=== PATIENT | male | born 1970 | race Caucasian/White ===

== ENCOUNTER 2020-10-07 10:43 | Inpatient (IN) | payer OTHER ==
[2020-10-07] VITALS (7 sets, daily range): BP systolic 113–136; BP diastolic 81–88
[~2020-10-07] VITALS: Ht 188 cm; Wt 92.3 kg
--- NOTE | 2020-10-07 11:09 | ED.ADGEN ---
General Adult EDM: Chief Complaint: ABDOMINAL PAIN HPI: HPI: Patient is a 50 year old male coming in for right-sided abdominal pain. Said the pain was initially in the right upper quadrant and moved down to the suprapubic area. Patient states he has had chronic abdominal pain in the past that is not nearly as severe. Patient states his abdominal pain before was every now and then he would have a cramp to go away. Patient states he was walking around the store when this pain started, has also had a couple episodes of nonbloody nonbilious emesis. Denies any diarrhea. Patient does state that he had an episode of black stools a few days ago. Patient admits to NSAID use and daily alcohol use but denies any history of GI bleeding. Review of Systems: Review of Systems: Constitutional: Denies fever or chills. [] Eyes: Denies change in visual acuity. [] HENT: Denies nasal congestion or sore throat. [] Respiratory: Denies cough or shortness of breath. [] Cardiovascular: Denies chest pain or edema. [] GI: Right side abdominal pain, vomiting : Denies dysuria and hematuria. [] Musculoskeletal: Denies back pain or joint pain. [] Integument: Denies rash. [] Neurologic: Denies headache, focal weakness or sensory changes. [] Endocrine: Denies polyuria or polydipsia. [] Lymphatic: Denies swollen glands. [] Psychiatric: Denies depression or anxiety. [] Current Medications: Current Medications Medications (Trade) Dose Ordered Sig/Natalee Start Time Stop Time Status Last Admin Dose Admin Fentanyl Citrate (Fentanyl 2ml Vial) 75 mcg 1X ONCE 10/07/20 11:15 10/07/20 11:16 DC 10/07/20 11:26 75 MCG Info (CONTRAST GIVEN -- Rx MONITORING) 1 each PRN DAILY PRN 10/07/20 11:30 10/09/20 11:29 Iohexol (Omnipaque 300 Mg/ml) 75 ml 1X ONCE 10/07/20 12:15 10/07/20 12:16 DC Morphine Sulfate (Morphine Sulfate) 4 mg PRN Q2HR PRN 10/07/20 12:45 10/08/20 12:44 Ondansetron HCl (Zofran) 4 mg PRN Q8HRS PRN 10/07/20 12:45 10/08/20 12:44 Pantoprazole Sodium (PROTONIX VIAL for IV PUSH) 40 mg 1X ONCE 10/07/20 12:45 10/07/20 12:46 DC 10/07/20 12:48 40 MG Piperacillin Sod/ Tazobactam Sod 3.375 gm/Sodium Chloride 50 ml @ 100 mls/hr 1X ONCE 10/07/20 12:45 10/07/20 13:14 DC 10/07/20 13:10 100 MLS/HR Sodium Chloride 1,000 ml @ 100 mls/hr Q10H 10/07/20 12:45 10/08/20 12:44 10/07/20 13:10 100 MLS/HR Allergies: Allergies: Allergies Coded Allergies Type Severity Reaction Last Updated Verified No Known Drug Allergies 10/07/20 No Physical Exam: PE: Constitutional: Well developed, well nourished, moderate acute distress, non- toxic appearance. [] HENT: Normocephalic, atraumatic, bilateral external ears normal, oropharynx moist, no oral exudates, nose normal. [] Eyes: PERRLA, EOMI, conjunctiva normal, no discharge. [] Neck: Normal range of motion, no tenderness, supple, no stridor. [] Cardiovascular:Heart rate regular rhythm, no murmur [] Lungs & Thorax: Bilateral breath sounds clear to auscultation [] Abdomen: Right upper quadrant tenderness with positive Rizo sign, guarding and right upper quadrant, right lower and left lower quadrants. No hernias or palpable masses Skin: Warm, dry, no erythema, no rash. [] Back: No tenderness, no CVA tenderness. [] Extremities: No tenderness, no cyanosis, no clubbing, ROM intact, no edema. [] Neurologic: Alert and oriented X 3, normal motor function, normal sensory function, no focal deficits noted. [] Psychologic: Affect normal, judgement normal, mood normal. [] Current Patient Data: Labs: Laboratory Tests Test 10/07/20 11:20 White Blood Count 11.7 x10^3/uL (4.0-11.0) H Red Blood Count 4.17 x10^6/uL (4.30-5.70) L Hemoglobin 13.5 g/dL (13.0-17.5) Hematocrit 39.8 % (39.0-53.0) Mean Corpuscular Volume 96 fL (79-100) Mean Corpuscular Hemoglobin 32 pg (25-35) Mean Corpuscular Hemoglobin Concent 34 g/dL (31-37) Red Cell Distribution Width 13.7 % (11.5-14.5) Platelet Count 456 x10^3/uL (140-400) H Neutrophils (%) (Auto) 77 % (31-73) H Lymphocytes (%) (Auto) 15 % (24-48) L Monocytes (%) (Auto) 6 % (0-9) Eosinophils (%) (Auto) 2 % (0-3) Basophils (%) (Auto) 0 % (0-3) Neutrophils # (Auto) 9.0 x10^3/uL (1.8-7.7) H Lymphocytes # (Auto) 1.7 x10^3/uL (1.0-4.8) Monocytes # (Auto) 0.7 x10^3/uL (0.0-1.1) Eosinophils # (Auto) 0.2 x10^3/uL (0.0-0.7) Basophils # (Auto) 0.0 x10^3/uL (0.0-0.2) Prothrombin Time 12.9 SEC (11.7-14.0) Prothrombin Time INR 1.0 (0.8-1.1) Urine Collection Type Unknown Urine Color Caroline Urine Clarity Clear Urine pH 6.5 (<5.0-8.0) Urine Specific [place] 1.025 (1.000-1.030) Urine Protein Negative mg/dL (NEG-TRACE) Urine Glucose (UA) Negative mg/dL (NEG) Urine Ketones (Stick) Negative mg/dL (NEG) Urine Blood Negative (NEG) Urine Nitrite Negative (NEG) Urine Bilirubin Negative (NEG) Urine Urobilinogen Dipstick 1.0 mg/dL (0.2 mg/dL) Urine Leukocyte Esterase Negative (NEG) Urine RBC Occ /HPF (0-2) Urine WBC 1-4 /HPF (0-4) Urine Squamous Epithelial Cells Mod /LPF Urine Bacteria Few /HPF (0-FEW) Urine Mucus Mod /LPF Sodium Level 138 mmol/L (136-145) Potassium Level 3.9 mmol/L (3.5-5.1) Chloride Level 100 mmol/L (98-107) Carbon Dioxide Level 28 mmol/L (21-32) Anion Gap 10 (6-14) Blood Urea Nitrogen 15 mg/dL (8-26) Creatinine 1.1 mg/dL (0.7-1.3) Estimated GFR (Cockcroft-Gault) 70.9 BUN/Creatinine Ratio 14 (6-20) Glucose Level 150 mg/dL (70-99) H Calcium Level 9.4 mg/dL (8.5-10.1) Total Bilirubin 0.5 mg/dL (0.2-1.0) Aspartate Amino Transferase (AST) 18 U/L (15-37) Alanine Aminotransferase (ALT) 21 U/L (16-63) Alkaline Phosphatase 66 U/L (46-116) Troponin I Quantitative < 0.017 ng/mL (0.000-0.055) Total Protein 6.9 g/dL (6.4-8.2) Albumin 3.8 g/dL (3.4-5.0) Albumin/Globulin Ratio 1.2 (1.0-1.7) Lipase 108 U/L (73-393) Laboratory Tests 10/07/20 11:20 Laboratory Tests 10/07/20 11:20 Vital Signs: Vital Signs Date Time Temp Pulse Resp B/P (MAP) Pulse Ox O2 Delivery O2 Flow Rate FiO2 10/07/20 12:49 22 98 Room Air 10/07/20 11:07 98.6 81 118/77 (91) 98.6 EKG: EKG: [] Heart Score: Risk Factors: Risk Factors: DM, Current or recent (<one month) smoker, HTN, HLP, family history of CAD, obesity. Risk Scores: Score 0 - 3: 2.5% MACE over next 6 weeks - Discharge Home Score 4 - 6: 20.3% MACE over next 6 weeks - Admit for Clinical Observation Score 7 - 10: 72.7% MACE over next 6 weeks - Early Invasive Strategies Radiology/Procedures: Radiology/Procedures: CT scan of the abdomen and pelvis with contrast 10/07/2020 CLINICAL HISTORY: Right-sided abdominal pain. TECHNIQUE: After the intravenous administration of 75 cc of Omnipaque 300, contiguous, 5 mm axial sections were obtained through the abdomen and pelvis. One or more of the following individualized dose reduction techniques were utilized for this study: 1. Automated exposure control. 2. Adjustment of the mA and/or kV according to patient size. 3. Use of iterative reconstruction technique. FINDINGS: No previous imaging studies are available for comparison. Images through the lung bases demonstrate minimal dependent subsegmental atelectasis bilaterally. A 8mm calcified granuloma is seen involving the right middle lobe. The liver, spleen, pancreas, adrenal glands and kidneys are within normal limits. The abdominal aorta is mildly ectatic but appears to taper normally. The gallbladder is well-distended. The cecum extends into the pelvis. The appendix is within normal limits. There is no evidence of bowel obstruction. A small amount of free fluid is seen within the right abdomen. Small collections of free air are seen in the region of scot hepatis and anterior to the liver. Fluid and small extraluminal collections of air are seen adjacent to the lateral superior aspect of the first portion of the duodenum. These findings are concerning for a perforated duodenal ulcer. Images through the pelvis demonstrate the urinary bladder to be contracted. A moderate amount of free fluid is seen within the pelvis. Very mild S-shaped curvature of the thoracolumbar spine is seen. Degenerative changes are seen involving lower thoracic and mid and lower lumbar spine along with both hips. IMPRESSION: Findings are seen concerning for a perforated duodenal ulcer as outlined above. [] Course & Med Decision Making: Course & Med Decision Making Pertinent Labs and Imaging studies reviewed. (See chart for details) Protonix and Zosyn ordered, discussed with surgery and hospitalist. [] Dragon Disclaimer: Dragon Disclaimer: This electronic medical record was generated, in whole or in part, using a voice recognition dictation system. Departure Departure Impression: Primary Impression: Perforated ulcer of intestine Disposition: ADMITTED INPT THIS HOSP Admitting Physician: [facility] Referrals: MONO LYN MD (PCP) MELA CORTES MD Oct 07, 2020 11:09
[2020-10-07] MEDS ORDERED: ONDANSETRON PF 4 MG/2 ML VIAL. IVP ONE (11:15)
[2020-10-07] MEDS ORDERED: fentaNYL PF VIAL 100 MCG/2 ML VIAL IVP ONE ×2 (11:15→14:30)
[2020-10-07] MEDS ORDERED: CONTRAST GIVEN. MC PRN (11:30)
[2020-10-07] MEDS ORDERED: IOHEXOL 300 MG/ML 100ML VIAL. IV ONE ×2 (11:30→12:15)
[2020-10-07 11:45] LABS: BASO % 0 % (0-3); EOS # 0.2 x10^3/uL (0.0-0.7); EOS % 2 % (0-3); HEMATOCRIT 39.8 % (39.0-53.0); HEMOGLOBIN 13.5 g/dL (13.0-17.5); LYMPH # 1.7 x10^3/uL (1.0-4.8); LYMPH % 15 % (24-48); MEAN CORPUSCULAR HEMOGLOBIN 32 pg (25-35); MEAN CORPUSCULAR HGB CONC 34 g/dL (31-37); MEAN CORPUSCULAR VOLUME 96 fL (79-100); MONO # 0.7 x10^3/uL (0.0-1.1); MONO % 6 % (0-9); NEUT % 77 % (31-73); PLATELET COUNT 456 x10^3/uL (140-400); RED BLOOD COUNT 4.17 x10^6/uL (4.30-5.70); RED CELL DISTRIBUTION WIDTH 13.7 % (11.5-14.5); WHITE BLOOD COUNT 11.7 x10^3/uL (4.0-11.0)
[2020-10-07 11:52] LABS: BILIRUBIN,URINE NEGATIVE (NEG); CLARITY,URINE CLEAR; COLOR,URINE AMBER; NITRITE,URINE NEGATIVE (NEG); PH,URINE 6.5 (<5.0-8.0); PROTEIN,URINE NEGATIVE (NEG-TRACE)
[2020-10-07 11:56] LABS: CALCIUM 9.4 mg/dL (8.5-10.1); CREATININE 1.1 mg/dL (0.7-1.3); GFR 70.9; POTASSIUM 3.9 mmol/L (3.5-5.1)
[2020-10-07 12:03] LABS: ALBUMIN 3.8 g/dL (3.4-5.0); ALBUMIN/GLOBULIN RATIO 1.2 (1.0-1.7); TOTAL BILIRUBIN 0.5 mg/dL (0.2-1.0); TOTAL PROTEIN 6.9 g/dL (6.4-8.2)
[2020-10-07 12:05] LABS: BACTERIA,URINE FEW /HPF (0-FEW); RBC,URINE OCC /HPF (0-2)
--- NOTE | 2020-10-07 12:38 | RAD ---
CT scan of the abdomen and pelvis with contrast 10/07/2020 CLINICAL HISTORY: Right-sided abdominal pain. TECHNIQUE: After the intravenous administration of 75 cc of Omnipaque 300, contiguous, 5 mm axial sec tions were obtained through the abdomen and pelvis. One or more of the following individualized dose reduction techniques were utilized for this study: 1. Automated exposure control. 2. Adjustment of the mA and/or kV according to patient size. 3. Use of iterative reconstruction technique. FINDINGS: No previous imaging studies are available for comparison. Images through the lung bases demonstrate minimal dependent subsegmental atelectasis bilaterally. A 8 mm calcified granuloma is seen involving the right middle lobe. The liver, spleen, pancreas, adrenal glands and kidneys are within normal limits. The abdominal aorta is mildly ectatic but appears to taper normally. The gallbladder is well-distende d. The cecum extends into the pelvis. The appendix is within normal limits. There is no evidence of b owel obstruction. A small amount of free fluid is seen within the right abdomen. Small collections of free air are seen in the region of scot hepatis and anterior to the liver. Fluid and small extraluminal collections o f air are seen adjacent to the lateral superior aspect of the first portion of the duodenum. These fi ndings are concerning for a perforated duodenal ulcer. Images through the pelvis demonstrate the urinary bladder to be contracted. A moderate amount of free fluid is seen within the pelvis. Very mild S-shaped curvature of the thoracolumbar spine is seen. De generative changes are seen involving lower thoracic and mid and lower lumbar spine along with both h ips. IMPRESSION: Findings are seen concerning for a perforated duodenal ulcer as outlined above. This findings were discussed with Dr. Rivera. Electronically signed by: Watson Hansen MD (10/07/2020 12:36 PM) [id number]
[2020-10-07] MEDS ORDERED: MORPHINE SULFATE 10 MG/ML VIAL. IV ONE (12:45)
[2020-10-07] MEDS ORDERED: PANTOPRAZOLE IV PUSH 40 MG VIAL. IVP ONE (12:45)
[2020-10-07] MEDS ORDERED: PIPERACILLIN/TAZOBACTAM 3.375 GM in IV NORMAL SALINE 50ML 50 ML IV ONE (12:45)
[2020-10-07] MEDS ORDERED: MORPHINE SULFATE 4 MG/ML VIAL. IV PRN (12:45)
[2020-10-07] MEDS ORDERED: ONDANSETRON PF 4 MG/2 ML VIAL. IV PRN (12:45)
[2020-10-07] MEDS: IV NORMAL SALINE 1000ML BAG 1,000 ML IV SCH ×3 (13:10→19:50)
[2020-10-07] MEDS ORDERED: IV RINGERS,LACTATED 1000ML 1,000 ML IV SCH (13:15)
[2020-10-07] MEDS ORDERED: LIDOCAINE 1% PF 2 ML VIAL. ID PRN (13:15)
[2020-10-07] MEDS ORDERED: ONDANSETRON PF 4 MG/2 ML VIAL. IVP PRN (13:15)
[2020-10-07] MEDS ORDERED: PROCHLORPERAZINE 10 MG/2 ML VIAL. IVP PRN (13:15)
[2020-10-07] MEDS: BUPIVACAINE-EPI 0.5%-1:200000 MPF 30 ML VIAL. INJ ONE ×2 (13:15→16:14)
[2020-10-07] MEDS ORDERED: HYDROmorphone 2 MG/ML VIAL IVP PRN (13:15)
[2020-10-07] MEDS ORDERED: fentaNYL PF VIAL 100 MCG/2 ML VIAL IVP PRN ×2 (13:15)
[2020-10-07 13:39] LABS: PROTHROMBIN TIME PATIENT 12.9 SEC (11.7-14.0)
[2020-10-07] MEDS ORDERED: MORPHINE SULFATE 2 MG/ML VIAL. ONE (14:05)
[2020-10-07] MEDS: MORPHINE SULFATE 2 MG/ML VIAL. IVP PRN ×4 (14:08→18:05)
[2020-10-07] MEDS ORDERED: fentaNYL PF VIAL 100 MCG/2 ML VIAL ONE ×2 (14:14→14:24)
[2020-10-07] MEDS ORDERED: LIDOCAINE 2% PF 5 ML VIAL. ONE (14:24)
[2020-10-07] MEDS ORDERED: PROPOFOL 10 MG/ML (20ML) VIAL. IV ONE (14:24)
[2020-10-07] MEDS ORDERED: SUCCINYLCHOLINE 200 MG/10 ML VIAL. ONE (14:25)
[2020-10-07] MEDS ORDERED: ROCURONIUM 50 MG/5 ML VIAL. ONE (14:25)
--- NOTE | 2020-10-07 14:59 | PDOC2 ---
CONSULT Date of Consult Date of Consult DATE: 10/07/20 TIME: 14:56 History of Present Illness Reason for Visit: The patient is a 50-year-old male who reported to the emergency department with abdominal pain. He states that he has had pain for a long time but that it worsened significantly today. The pain is located in the upper mid abdomen and radiates throughout. He does state he has had issues with ulcers in the past. Past Surgical History Past Surgical History laminectomy Social History 1 pack per day ALCOHOL: heavy Current Medications Current Medications Current Medications Ondansetron HCl (Zofran) 4 mg 1X ONCE IVP Last administered on 10/07/20at 11:25; Start 10/07/20 at 11:15; Stop 10/07/20 at 11:16; Status DC Fentanyl Citrate (Fentanyl 2ml Vial) 75 mcg 1X ONCE IVP Last administered on 10/07/20at 11:26; Start 10/07/20 at 11:15; Stop 10/07/20 at 11:16; Status DC Iohexol (Omnipaque 300 Mg/ml) 75 ml 1X ONCE IV Last administered on 10/07/20at 11:30; Start 10/07/20 at 11:30; Stop 10/07/20 at 11:31; Status DC Info (CONTRAST GIVEN -- Rx MONITORING) 1 each PRN DAILY PRN MC SEE COMMENTS; Start 10/07/20 at 11:30; Stop 10/09/20 at 11:29 Iohexol (Omnipaque 300 Mg/ml) 75 ml 1X ONCE IV ; Start 10/07/20 at 12:15; Stop 10/07/20 at 12:16; Status DC Morphine Sulfate (Morphine Sulfate) 5 mg 1X ONCE IV Last administered on 10/07/20at 12:49; Start 10/07/20 at 12:45; Stop 10/07/20 at 12:46; Status DC Pantoprazole Sodium (PROTONIX VIAL for IV PUSH) 40 mg 1X ONCE IVP Last administered on 10/07/20at 12:48; Start 10/07/20 at 12:45; Stop 10/07/20 at 12:46; Status DC Piperacillin Sod/ Tazobactam Sod 3.375 gm/Sodium Chloride 50 ml @ 100 mls/hr 1X ONCE IV Last administered on 10/07/20at 13:10; Start 10/07/20 at 12:45; Stop 10/07/20 at 13:14; Status DC Ondansetron HCl (Zofran) 4 mg PRN Q8HRS PRN IV NAUSEA/VOMITING; Start 10/07/20 at 12:45; Stop 10/08/20 at 12:44 Morphine Sulfate (Morphine Sulfate) 4 mg PRN Q2HR PRN IV PAIN; Start 10/07/20 at 12:45; Stop 10/08/20 at 12:44 Sodium Chloride 1,000 ml @ 100 mls/hr Q10H IV Last administered on 10/07/20at 13:10; Start 10/07/20 at 12:45; Stop 10/08/20 at 12:44 Bupivacaine HCl/ Epinephrine Bitart (Sensorcain-Epi 0.5%-1:633779 Mpf) 30 ml 1X ONCE INJ ; Start 10/07/20 at 13:15; Stop 10/07/20 at 13:16; Status DC Ondansetron HCl (Zofran) 4 mg PRN Q6HRS PRN IVP NAUSEA/VOMITING; Start 10/07/20 at 13:15; Stop 10/08/20 at 13:14 Fentanyl Citrate (Fentanyl 2ml Vial) 25 mcg PRN Q5MIN PRN IVP MILD PAIN 1-3; Start 10/07/20 at 13:15; Stop 10/08/20 at 13:14 Fentanyl Citrate (Fentanyl 2ml Vial) 50 mcg PRN Q5MIN PRN IVP MODERATE TO SEVERE PAIN; Start 10/07/20 at 13:15; Stop 10/08/20 at 13:14 Morphine Sulfate (Morphine Sulfate) 1 mg PRN Q10MIN PRN IVP SEVERE PAIN 7-10 Last administered on 10/07/20at 14:22; Start 10/07/20 at 13:15; Stop 10/08/20 at 13:14 Ringer's Solution 1,000 ml @ 30 mls/hr Q24H IV ; Start 10/07/20 at 13:15; Stop 10/08/20 at 01:14 Lidocaine HCl (Xylocaine-Mpf 1% 2ml Vial) 2 ml 1X PRN PRN ID IV START; Start 10/07/20 at 13:15; Stop 10/08/20 at 13:14 Hydromorphone HCl (Dilaudid) 0.5 mg PRN Q10MIN PRN IVP SEV PAIN, Second choice; Start 10/07/20 at 13:15; Stop 10/08/20 at 13:14 Prochlorperazine Edisylate (Compazine) 5 mg PACU PRN PRN IVP NAUSEA, MRX1; Start 10/07/20 at 13:15; Stop 10/08/20 at 13:14 Morphine Sulfate (Morphine Sulfate) 2 mg STK-MED ONCE .ROUTE ; Start 10/07/20 at 14:05; Stop 10/07/20 at 14:05; Status DC Fentanyl Citrate (Fentanyl 2ml Vial) 100 mcg STK-MED ONCE .ROUTE ; Start 10/07/20 at 14:14; Stop 10/07/20 at 14:15; Status DC Fentanyl Citrate (Fentanyl 2ml Vial) 100 mcg 1X ONCE IVP Last administered on 10/07/20at 14:21; Start 10/07/20 at 14:30; Stop 10/07/20 at 14:31; Status DC Propofol (Diprivan) 200 mg STK-MED ONCE IV ; Start 10/07/20 at 14:24; Stop 10/07/20 at 14:24; Status DC Lidocaine HCl (Lidocaine Pf 2% Vial) 5 ml STK-MED ONCE .ROUTE ; Start 10/07/20 at 14:24; Stop 10/07/20 at 14:24; Status DC Fentanyl Citrate (Fentanyl 2ml Vial) 100 mcg STK-MED ONCE .ROUTE ; Start 10/07/20 at 14:24; Stop 10/07/20 at 14:24; Status DC Succinylcholine Chloride (Anectine) 200 mg STK-MED ONCE .ROUTE ; Start 10/07/20 at 14:25; Stop 10/07/20 at 14:25; Status DC Rocuronium [place] (Zemuron) 50 mg STK-MED ONCE .ROUTE ; Start 10/07/20 at 14:25; Stop 10/07/20 at 14:25; Status DC Allergies Allergies: Coded Allergies: No Known Drug Allergies (Unverified , 10/07/20) ROS General: No: Chills, Night Sweats, Fatigue, Malaise, Appetite, Other PSYCHOLOGICAL ROS: No: Anxiety, Behavioral Disorder, Concentration difficultie, Decreased libido, Depression, Disorientation, Hallucinations, Hostility, Ir ritablity, Memory difficulties, Mood Swings, Obsessive thoughts, Physical abuse, Sexual abuse, Sleep disturbances, Suicidal ideation, Other Eyes: No Blurry vision, No Decreased vision, No Double vision, No Dry eyes, No Excessive tearing, No Eye Pain, No Itchy Eyes, No Loss of vision, No Photophobia, No Scotomata, No Uses contacts, No Uses glasses, No Other ALLERGY AND IMMUNOLOGY: No: Hives, Insect Bite Sensitivity, Itchy/Watery Eyes, Nasal Congestion, Post Nasal Drip, Seasonal Allergies, Other ENDOCRINE: No: Breast Changes, Galactorrhea, Hair Pattern Changes, Hot Flashes, Malaise/lethargy, Mood Swings, Palpitations, Polydipsia/polyuria, Skin Changes, Temperature Intolerance, Unexpected Weight Changes, Other Breast: No New/Changing Breast Lumps, No Nipple changes, No Nipple discharge, No Other Respiratory: No: Cough, Hemoptysis, Orthopnea, Pleuritic Pain, Shortness of breath, SOB with excertion, Sputum Changes, Stridor, Tachypnea, Wheezing, Other Cardiovascular: No Chest Pain, No Palpitations, No Orthopnea, No Paroxysmal Noc. Dyspnea, No Edema, No Lt Headedness, No Other Gastrointestinal: Yes Abdominal Pain Musculoskeletal: Yes Other (chronic back pain) Skin: No Dry Skin, No Eczema, No Hair Changes, No Lumps, No Mole Changes, No Mottling, No Nail Changes, No Pruritus, No Rash, No Skin Lesion Changes, No Other, No Acne Physical Exam General: Alert, Oriented X3 HEENT: Atraumatic Lungs: Clear to auscultation Abdomen: Soft (tender diffusely, peritoneal signs) Extremities: No clubbing, No cyanosis Skin: No rashes Neuro: Normal speech Psych/Mental Status: Mental status NL Vitals VITALS Vital Signs Date Time Temp Pulse Resp B/P (MAP) Pulse Ox O2 Delivery O2 Flow Rate FiO2 10/07/20 14:28 98.6 81 15 122/77 99 98.6 10/07/20 14:22 Room Air Labs Labs Laboratory Tests Test 10/07/20 11:20 10/07/20 13:15 White Blood Count 11.7 x10^3/uL (4.0-11.0) Red Blood Count 4.17 x10^6/uL (4.30-5.70) Hemoglobin 13.5 g/dL (13.0-17.5) Hematocrit 39.8 % (39.0-53.0) Mean Corpuscular Volume 96 fL (79-100) Mean Corpuscular Hemoglobin 32 pg (25-35) Mean Corpuscular Hemoglobin Concent 34 g/dL (31-37) Red Cell Distribution Width 13.7 % (11.5-14.5) Platelet Count 456 x10^3/uL (140-400) Neutrophils (%) (Auto) 77 % (31-73) Lymphocytes (%) (Auto) 15 % (24-48) Monocytes (%) (Auto) 6 % (0-9) Eosinophils (%) (Auto) 2 % (0-3) Basophils (%) (Auto) 0 % (0-3) Neutrophils # (Auto) 9.0 x10^3/uL (1.8-7.7) Lymphocytes # (Auto) 1.7 x10^3/uL (1.0-4.8) Monocytes # (Auto) 0.7 x10^3/uL (0.0-1.1) Eosinophils # (Auto) 0.2 x10^3/uL (0.0-0.7) Basophils # (Auto) 0.0 x10^3/uL (0.0-0.2) Prothrombin Time 12.9 SEC (11.7-14.0) Prothromb Time International Ratio 1.0 (0.8-1.1) Urine Collection Type Unknown Urine Color [place] Urine Clarity Clear Urine pH 6.5 (<5.0-8.0) Urine Specific [place] 1.025 (1.000-1.030) Urine Protein Negative mg/dL (NEG-TRACE) Urine Glucose (UA) Negative mg/dL (NEG) Urine Ketones (Stick) Negative mg/dL (NEG) Urine Blood Negative (NEG) Urine Nitrite Negative (NEG) Urine Bilirubin Negative (NEG) Urine Urobilinogen Dipstick 1.0 mg/dL (0.2 mg/dL) Urine Leukocyte Esterase Negative (NEG) Urine RBC Occ /HPF (0-2) Urine WBC 1-4 /HPF (0-4) Urine Squamous Epithelial Cells Mod /LPF Urine Bacteria Few /HPF (0-FEW) Urine Mucus Mod /LPF Sodium Level 138 mmol/L (136-145) Potassium Level 3.9 mmol/L (3.5-5.1) Chloride Level 100 mmol/L (98-107) Carbon Dioxide Level 28 mmol/L (21-32) Anion Gap 10 (6-14) Blood Urea Nitrogen 15 mg/dL (8-26) Creatinine 1.1 mg/dL (0.7-1.3) Estimated GFR (Cockcroft-Gault) 70.9 BUN/Creatinine Ratio 14 (6-20) Glucose Level 150 mg/dL (70-99) Calcium Level 9.4 mg/dL (8.5-10.1) Total Bilirubin 0.5 mg/dL (0.2-1.0) Aspartate Amino Transf (AST/SGOT) 18 U/L (15-37) Alanine Aminotransferase (ALT/SGPT) 21 U/L (16-63) Alkaline Phosphatase 66 U/L (46-116) Troponin I Quantitative < 0.017 ng/mL (0.000-0.055) Total Protein 6.9 g/dL (6.4-8.2) Albumin 3.8 g/dL (3.4-5.0) Albumin/Globulin Ratio 1.2 (1.0-1.7) Lipase 108 U/L (73-393) SARS-CoV-2 Antigen (Rapid) Negative (NEGATIVE) Laboratory Tests Test 10/07/20 11:20 10/07/20 13:15 White Blood Count 11.7 x10^3/uL (4.0-11.0) Red Blood Count 4.17 x10^6/uL (4.30-5.70) Hemoglobin 13.5 g/dL (13.0-17.5) Hematocrit 39.8 % (39.0-53.0) Mean Corpuscular Volume 96 fL (79-100) Mean Corpuscular Hemoglobin 32 pg (25-35) Mean Corpuscular Hemoglobin Concent 34 g/dL (31-37) Red Cell Distribution Width 13.7 % (11.5-14.5) Platelet Count 456 x10^3/uL (140-400) Neutrophils (%) (Auto) 77 % (31-73) Lymphocytes (%) (Auto) 15 % (24-48) Monocytes (%) (Auto) 6 % (0-9) Eosinophils (%) (Auto) 2 % (0-3) Basophils (%) (Auto) 0 % (0-3) Neutrophils # (Auto) 9.0 x10^3/uL (1.8-7.7) Lymphocytes # (Auto) 1.7 x10^3/uL (1.0-4.8) Monocytes # (Auto) 0.7 x10^3/uL (0.0-1.1) Eosinophils # (Auto) 0.2 x10^3/uL (0.0-0.7) Basophils # (Auto) 0.0 x10^3/uL (0.0-0.2) Prothrombin Time 12.9 SEC (11.7-14.0) Prothromb Time International Ratio 1.0 (0.8-1.1) Urine Collection Type Unknown Urine Color [place] Urine Clarity Clear Urine pH 6.5 (<5.0-8.0) Urine Specific [place] 1.025 (1.000-1.030) Urine Protein Negative mg/dL (NEG-TRACE) Urine Glucose (UA) Negative mg/dL (NEG) Urine Ketones (Stick) Negative mg/dL (NEG) Urine Blood Negative (NEG) Urine Nitrite Negative (NEG) Urine Bilirubin Negative (NEG) Urine Urobilinogen Dipstick 1.0 mg/dL (0.2 mg/dL) Urine Leukocyte Esterase Negative (NEG) Urine RBC Occ /HPF (0-2) Urine WBC 1-4 /HPF (0-4) Urine Squamous Epithelial Cells Mod /LPF Urine Bacteria Few /HPF (0-FEW) Urine Mucus Mod /LPF Sodium Level 138 mmol/L (136-145) Potassium Level 3.9 mmol/L (3.5-5.1) Chloride Level 100 mmol/L (98-107) Carbon Dioxide Level 28 mmol/L (21-32) Anion Gap 10 (6-14) Blood Urea Nitrogen 15 mg/dL (8-26) Creatinine 1.1 mg/dL (0.7-1.3) Estimated GFR (Cockcroft-Gault) 70.9 BUN/Creatinine Ratio 14 (6-20) Glucose Level 150 mg/dL (70-99) Calcium Level 9.4 mg/dL (8.5-10.1) Total Bilirubin 0.5 mg/dL (0.2-1.0) Aspartate Amino Transf (AST/SGOT) 18 U/L (15-37) Alanine Aminotransferase (ALT/SGPT) 21 U/L (16-63) Alkaline Phosphatase 66 U/L (46-116) Troponin I Quantitative < 0.017 ng/mL (0.000-0.055) Total Protein 6.9 g/dL (6.4-8.2) Albumin 3.8 g/dL (3.4-5.0) Albumin/Globulin Ratio 1.2 (1.0-1.7) Lipase 108 U/L (73-393) SARS-CoV-2 Antigen (Rapid) Negative (NEGATIVE) Images Images CT abdomen/pelvis IMPRESSION: Findings are seen concerning for a perforated duodenal ulcer as outlined above. Assessment/Plan Assessment/Plan 50 year old male with abdominal pain, CT suggestive of perforated duodenal ulcer; plan to OR for laparoscopy, possible laparotomy. The risks of surgery were discussed with the patient. He understands and would like to proceed. KHOA HAMPTON MD Oct 07, 2020 14:59
[2020-10-07] MEDS ORDERED: DESFLURANE 31 TO 60 MINUTES IH ONE (15:36)
[2020-10-07] MEDS ORDERED: ONDANSETRON PF 4 MG/2 ML VIAL. ONE ×2 (15:36→15:57)
[2020-10-07] MEDS ORDERED: DEXAMETHASONE SOD PHOS 4 MG/ML VIAL ONE (15:36)
[2020-10-07] MEDS ORDERED: NEOSTIGMINE METHYLSULFATE 5 MG/5 ML SYRINGE. ONE (15:58)
[2020-10-07] MEDS ORDERED: GLYCOPYRROLATE 1 MG/5 ML VIAL. ONE (15:58)
[2020-10-07] MEDS ORDERED: PHENYLEPHRINE in 0.9% NACL PF 1 MG/10 ML SYRINGE. IV ONE (16:00)
--- NOTE | 2020-10-07 17:29 | PDOC4 ---
Operative Note Operative Note Operative Note: Preoperative Diagnosis: Perforated viscus Postoperative Diagnosis: Perforated duodenal ulcer Procedure: Exploratory laparoscopy, open repair of perforated duodenal ulcer, omental patch Surgeon: Josh Tester Equipment: Juan Carlos GUTHRIE Anesthesia: General EBL: 50 mL Specimen: None Drains: 19 [place] ELADIA drain to upper abdomen Complications: None Indication: The patient is a 50-year-old male who presented with acute onset of abdominal pain. His evaluation is suggestive of a perforated duodenal ulcer. We recommend proceeding for operative intervention. The risks of surgery were discussed which include bleeding, infection, anastomotic leak, poor wound healing, disrupted repair, anesthetic risk, potential need for additional surgery procedure. He understands and would like to proceed. Description: The patient was taken to the operating room and placed supine in the operating table. General anesthesia was performed. The abdomen was prepped with ChloraPrep and draped in a standard surgical manner. A small infraumbilical incision was made in the skin through which a Veress needle was inserted. A pneumoperitoneum was created and the laparoscope was introduced. In the left upper abdomen an 11 mm trocar was inserted. In the right upper abdomen a 5 mm trocar was inserted. The upper abdomen showed turbid fluid consistent with ruptured viscus. There was marked inflammatory reaction near the first part of the duodenum with contamination of the liver and gallbladder. Further inspection showed what appeared to be a large anterior ulcer in the first part of the duodenum. Based on the location and size of this we elected to proceed with an open repair. The pneumoperitoneum was relieved and the laparoscopic ports were removed. An upper vertical midline incision was made in the skin with a scalpel. Cautery dissection was carried to the fascia. The fascia and peritoneum were then divided for the length of the incision. The O mni retractor was used for the remainder of the case to facilitate exposure. The falciform ligament was taken down to assist with exposure. The large duodenal ulcer was readily visualized. There was marked inflammatory response of the surrounding duodenal wall. The ulcer was primarily repaired using interrupted 2-0 Vicryl sutures. The repair was then reinforced with a vascular ized pedicle of omentum that was secured with interrupted 2-0 Vicryl creating a patch. The entire abdominal cavity was then irrigated with several liters of saline and all contamination was cleaned out. A 19 [place] ELADIA drain was left near the area of the repair with an exit site at the 11 mm port incision in the left abdomen. This was secured to the skin with 2-0 silk. The fascia was then approximated with 1 PDS. A Juice drain was left in subcutaneous tissues which exited inferiorly. This was secured to the skin with 2-0 Vicryl. Subcutaneous tissues were approximated with 3-0 Vicryl and the skin was closed with 4-0 Monocryl. Steri-Strips and a sterile dressing were applied. The patient tolerated the procedure well and was sent to the recovery room in stable condition. At the end of the case all counts were correct. KHOA HAMPTON MD Oct 07, 2020 17:29
[2020-10-07] MEDS ORDERED: NALOXONE 0.4 MG/ML VIAL. IV PRN (17:30)
[2020-10-07] MEDS: PIPERACILLIN/TAZOBACTAM 3.375 GM in IV NORMAL SALINE 50ML 50 ML IV SCH ×2 (18:39→23:51)
[2020-10-07] MEDS: HYDROmorphone 12mg/30ml PCA 30 ML IV PRN (18:48)
[2020-10-07] MEDS: PANTOPRAZOLE SODIUM IV DRIP 80 MG in IV NORMAL SALINE 100ML 100 ML IV SCH (19:50)
[2020-10-07] MEDS ORDERED: NICOTINE 14MG PATCH. TD PRN (20:00)
[2020-10-07] MEDS ORDERED: PHENOL ORAL SPRAY 177ML BOTTLE. PO PRN (20:00)
[2020-10-07] MEDS ORDERED: MULTIVIT INFUSN,ADULT 4,VIT K 10 ML, THIAMINE INJ 100 MG, FOLIC ACID INJ 1 MG in IV NOR... IV ONE (20:00)
--- NOTE | 2020-10-07 20:04 | PDOC1 ---
History and Physical Date of Admission Date of Admission DATE: 10/07/20 TIME: 20:00 History of Present Illness History of Present Illness Mr. Gage, is a 50 year old male coming in for right-sided abdominal pain. Said the pain was initially in the right upper quadrant and moved down to the suprapubic area. Patient states he has had chronic abdominal pain in the past that is not nearly as severe. Patient states his abdominal pain before was every now and then he would have a cramp to go away. Patient states he was walking around the store when this pain started, has also had a couple episodes of nonbloody nonbilious emesis. Denies any diarrhea. Patient does state that he had an episode of black stools a few days ago. Patient admits to NSAID use and daily alcohol use but denies any history of GI bleeding. he served in the [employer] Past Medical History Cardiovascular: No pertinent hx Pulmonary: No pertinent hx GI: No pertinent hx Hepatobiliary: No pertinent hx Psych: Anxiety, Addictions Musculoskeletal: low back pain, Osteoarthritis Rheumatologic: No pertinent hx Past Surgical History Past Surgical History laminectomy for back pain and nerve impingment Family History Family History: No Significant Social History Smoke: 1 pack per day ALCOHOL: heavy Drugs: None Current Problem List Problem List Problems Medical Problems: (1) Perforated ulcer of intestine Status: Acute Current Medications Current Medications Current Medications Ondansetron HCl (Zofran) 4 mg 1X ONCE IVP Last administered on 10/07/20at 11:25; Start 10/07/20 at 11:15; Stop 10/07/20 at 11:16; Status DC Fentanyl Citrate (Fentanyl 2ml Vial) 75 mcg 1X ONCE IVP Last administered on 10/07/20at 11:26; Start 10/07/20 at 11:15; Stop 10/07/20 at 11:16; Status DC Iohexol (Omnipaque 300 Mg/ml) 75 ml 1X ONCE IV Last administered on 10/07/20at 11:30; Start 10/07/20 at 11:30; Stop 10/07/20 at 11:31; Status DC Info (CONTRAST GIVEN -- Rx MONITORING) 1 each PRN DAILY PRN MC SEE COMMENTS; Start 10/07/20 at 11:30; Stop 10/09/20 at 11:29 Iohexol (Omnipaque 300 Mg/ml) 75 ml 1X ONCE IV ; Start 10/07/20 at 12:15; Stop 10/07/20 at 12:16; Status DC Morphine Sulfate (Morphine Sulfate) 5 mg 1X ONCE IV Last administered on 10/07/20at 12:49; Start 10/07/20 at 12:45; Stop 10/07/20 at 12:46; Status DC Pantoprazole Sodium (PROTONIX VIAL for IV PUSH) 40 mg 1X ONCE IVP Last administered on 10/07/20at 12:48; Start 10/07/20 at 12:45; Stop 10/07/20 at 12:46; Status DC Piperacillin Sod/ Tazobactam Sod 3.375 gm/Sodium Chloride 50 ml @ 100 mls/hr 1X ONCE IV Last administered on 10/07/20at 13:10; Start 10/07/20 at 12:45; Stop 10/07/20 at 13:14; Status DC Ondansetron HCl (Zofran) 4 mg PRN Q8HRS PRN IV NAUSEA/VOMITING; Start 10/07/20 at 12:45; Stop 10/08/20 at 12:44 Morphine Sulfate (Morphine Sulfate) 4 mg PRN Q2HR PRN IV PAIN; Start 10/07/20 at 12:45; Stop 10/08/20 at 12:44 Sodium Chloride 1,000 ml @ 100 mls/hr Q10H IV Last administered on 10/07/20at 19:50; Start 10/07/20 at 12:45; Stop 10/08/20 at 12:44 Bupivacaine HCl/ Epinephrine Bitart (Sensorcain-Epi 0.5%-1:[id number] Mpf) 30 ml 1X ONCE INJ ; Start 10/07/20 at 13:15; Stop 10/07/20 at 13:16; Status DC Ondansetron HCl (Zofran) 4 mg PRN Q6HRS PRN IVP NAUSEA/VOMITING; Start 10/07/20 at 13:15; Stop 10/08/20 at 13:14 Fentanyl Citrate (Fentanyl 2ml Vial) 25 mcg PRN Q5MIN PRN IVP MILD PAIN 1-3; Start 10/07/20 at 13:15; Stop 10/08/20 at 13:14 Fentanyl Citrate (Fentanyl 2ml Vial) 50 mcg PRN Q5MIN PRN IVP MODERATE TO SEVERE PAIN; Start 10/07/20 at 13:15; Stop 10/08/20 at 13:14 Morphine Sulfate (Morphine Sulfate) 1 mg PRN Q10MIN PRN IVP SEVERE PAIN 7-10 Last administered on 10/07/20at 18:05; Start 10/07/20 at 13:15; Stop 10/08/20 at 13:14 Ringer's Solution 1,000 ml @ 30 mls/hr Q24H IV ; Start 10/07/20 at 13:15; Stop 10/08/20 at 01:14 Lidocaine HCl (Xylocaine-Mpf 1% 2ml Vial) 2 ml 1X PRN PRN ID IV START; Start 10/07/20 at 13:15; Stop 10/08/20 at 13:14 Hydromorphone HCl (Dilaudid) 0.5 mg PRN Q10MIN PRN IVP SEV PAIN, Second choice; Start 10/07/20 at 13:15; Stop 10/08/20 at 13:14 Prochlorperazine Edisylate (Compazine) 5 mg PACU PRN PRN IVP NAUSEA, MRX1; Start 10/07/20 at 13:15; Stop 10/08/20 at 13:14 Morphine Sulfate (Morphine Sulfate) 2 mg STK-MED ONCE .ROUTE ; Start 10/07/20 at 14:05; Stop 10/07/20 at 14:05; Status DC Fentanyl Citrate (Fentanyl 2ml Vial) 100 mcg STK-MED ONCE .ROUTE ; Start 10/07/20 at 14:14; Stop 10/07/20 at 14:15; Status DC Fentanyl Citrate (Fentanyl 2ml Vial) 100 mcg 1X ONCE IVP Last administered on 10/07/20at 14:21; Start 10/07/20 at 14:30; Stop 10/07/20 at 14:31; Status DC Propofol (Diprivan) 200 mg STK-MED ONCE IV ; Start 10/07/20 at 14:24; Stop 10/07/20 at 14:24; Status DC Lidocaine HCl (Lidocaine Pf 2% Vial) 5 ml STK-MED ONCE .ROUTE ; Start 10/07/20 at 14:24; Stop 10/07/20 at 14:24; Status DC Fentanyl Citrate (Fentanyl 2ml Vial) 100 mcg STK-MED ONCE .ROUTE ; Start 10/07/20 at 14:24; Stop 10/07/20 at 14:24; Status DC Succinylcholine Chloride (Anectine) 200 mg STK-MED ONCE .ROUTE ; Start 10/07/20 at 14:25; Stop 10/07/20 at 14:25; Status DC Rocuronium [place] (Zemuron) 50 mg STK-MED ONCE .ROUTE ; Start 10/07/20 at 14:25; Stop 10/07/20 at 14:25; Status DC Ondansetron HCl (Zofran) 4 mg STK-MED ONCE .ROUTE ; Start 10/07/20 at 15:36; Stop 10/07/20 at 15:36; Status DC Dexamethasone Sodium Phosphate (Decadron) 4 mg STK-MED ONCE .ROUTE ; Start 10/07/20 at 15:36; Stop 10/07/20 at 15:36; Status DC Desflurane (Suprane) 30 ml STK-MED ONCE IH ; Start 10/07/20 at 15:36; Stop 10/07/20 at 15:36; Status DC Ondansetron HCl (Zofran) 4 mg STK-MED ONCE .ROUTE ; Start 10/07/20 at 15:57; Stop 10/07/20 at 15:58; Status DC Glycopyrrolate (Robinul) 1 mg STK-MED ONCE .ROUTE ; Start 10/07/20 at 15:58; Stop 10/07/20 at 15:58; Status DC Neostigmine [place] (Neostigmine Methylsulfate) 5 mg STK-MED ONCE .ROUTE ; Start 10/07/20 at 15:58; Stop 10/07/20 at 15:58; Status DC Phenylephrine HCl (PHENYLEPHRINE in 0.9% NACL PF) 1 mg STK-MED ONCE IV ; Start 10/07/20 at 16:00; Stop 10/07/20 at 16:00; Status DC Naloxone HCl (Narcan) 0.4 mg PRN Q2MIN PRN IV SEE INSTRUCTIONS; Start 10/07/20 at 17:30 Sodium Chloride 1,000 ml @ 25 mls/hr Q24H IV ; Start 10/07/20 at 17:30 Hydromorphone HCl 30 ml @ 0 mls/hr CONT PRN PRN IV PER PROTOCOL Last administered on 12/21/20at 18:48; Start 10/07/20 at 17:30 Pantoprazole Sodium 80 mg/ Sodium Chloride 100 ml @ 10 mls/hr Q10H IV Last administered on 10/07/20at 19:50; Start 10/07/20 at 18:00 Piperacillin Sod/ Tazobactam Sod 3.375 gm/Sodium Chloride 50 ml @ 100 mls/hr Q6HRS IV Last administered on 10/07/20at 18:39; Start 10/07/20 at 18:00 Allergies Allergies: Coded Allergies: No Known Drug Allergies (Unverified , 10/07/20) ROS General: No: Chills, Night Sweats, Fatigue, Malaise, Appetite, Other PSYCHOLOGICAL ROS: No: Anxiety, Behavioral Disorder, Concentration difficultie, Decreased libido, Depression, Disorientation, Hallucinations, Hostility, Irritablity, Memory difficulties, Mood Swings, Obsessive thoughts, Physical abuse, Sexual abuse, Sleep disturbances, Suicidal ideation, Other HEENT: No: Heacaches, Visual Changes, Hearing change, Nasal congestion, Nasal discharge, Oral lesions, Sinus pain, Sore Throat, Epistaxis, Sneezing, Snoring, Tinnitus, Vertigo, Vocal changes, Other Respiratory: No: Cough, Hemoptysis, Orthopnea, Pleuritic Pain, Shortness of breath, SOB with excertion, Sputum Changes, Stridor, Tachypnea, Wheezing, Other Cardiovascular: yes Chest Pain; No Palpitations, No Orthopnea, No Paroxysmal Noc. Dyspnea, No Edema, No Lt Headedness, No Other Gastrointestinal: Yes Nausea, Yes Abdominal Pain Genitourinary: No Dysuria, No Frequency, No Incontinence, No Hematuria, No Retention, No Discharge, No Urgency, No Pain, No Flank Pain, No Other, No , No , No , No , No , No , No Musculoskeletal: Yes Joint Pain, Yes Joint Swelling, Yes Pain In: (back, down legs, ); No Gait Disturbance, No Joint Stiffness, No Muscle Pain, No Muscular Weakness, No Swelling In:, No Other Neurological: No Behavorial Changes, No Bowel/Bladder ControlChng, No Confusion, No Dizziness, No Gait Disturbance, No Headaches, No Impaired Coord/balance, No Memory Loss, No Numbness/Tingling, No Seizures, No Speech Problems, No Tremors, No Visual Changes, No Weakness, No Other Skin: No Dry Skin, No Eczema, No Hair Changes, No Lumps, No Mole Changes, No Mottling, No Nail Changes, No Pruritus, No Rash, No Skin Lesion Changes, No Other, No Acne Physical Exam General: Alert, Cooperative, moderate distress HEENT: Atraumatic, Mucous membr. moist/pink Lungs: Clear to auscultation Heart: S1S2, no gallops Extremities: No clubbing, No edema, Normal pulses Skin: No breakdown Neuro: Normal tone, Sensation intact Psych/Mental Status: Mental status NL, Mood NL Vitals Vitals Vital Signs Date Time Temp Pulse Resp B/P (MAP) Pulse Ox O2 Delivery O2 Flow Rate FiO2 10/07/20 19:51 14 99 Nasal Cannula 2.0 10/07/20 18:25 100.3 86 122/85 100.3 Labs Labs Laboratory Tests Test 10/07/20 11:20 10/07/20 13:15 White Blood Count 11.7 x10^3/uL (4.0-11.0) Red Blood Count 4.17 x10^6/uL (4.30-5.70) Hemoglobin 13.5 g/dL (13.0-17.5) Hematocrit 39.8 % (39.0-53.0) Mean Corpuscular Volume 96 fL (79-100) Mean Corpuscular Hemoglobin 32 pg (25-35) Mean Corpuscular Hemoglobin Concent 34 g/dL (31-37) Red Cell Distribution Width 13.7 % (11.5-14.5) Platelet Count 456 x10^3/uL (140-400) Neutrophils (%) (Auto) 77 % (31-73) Lymphocytes (%) (Auto) 15 % (24-48) Monocytes (%) (Auto) 6 % (0-9) Eosinophils (%) (Auto) 2 % (0-3) Basophils (%) (Auto) 0 % (0-3) Neutrophils # (Auto) 9.0 x10^3/uL (1.8-7.7) Lymphocytes # (Auto) 1.7 x10^3/uL (1.0-4.8) Monocytes # (Auto) 0.7 x10^3/uL (0.0-1.1) Eosinophils # (Auto) 0.2 x10^3/uL (0.0-0.7) Basophils # (Auto) 0.0 x10^3/uL (0.0-0.2) Prothrombin Time 12.9 SEC (11.7-14.0) Prothromb Time International Ratio 1.0 (0.8-1.1) Urine Collection Type Unknown Urine Color Caroline Urine Clarity Clear Urine pH 6.5 (<5.0-8.0) Urine Specific [place] 1.025 (1.000-1.030) Urine Protein Negative mg/dL (NEG-TRACE) Urine Glucose (UA) Negative mg/dL (NEG) Urine Ketones (Stick) Negative mg/dL (NEG) Urine Blood Negative (NEG) Urine Nitrite Negative (NEG) Urine Bilirubin Negative (NEG) Urine Urobilinogen Dipstick 1.0 mg/dL (0.2 mg/dL) Urine Leukocyte Esterase Negative (NEG) Urine RBC Occ /HPF (0-2) Urine WBC 1-4 /HPF (0-4) Urine Squamous Epithelial Cells Mod /LPF Urine Bacteria Few /HPF (0-FEW) Urine Mucus Mod /LPF Sodium Level 138 mmol/L (136-145) Potassium Level 3.9 mmol/L (3.5-5.1) Chloride Level 100 mmol/L (98-107) Carbon Dioxide Level 28 mmol/L (21-32) Anion Gap 10 (6-14) Blood Urea Nitrogen 15 mg/dL (8-26) Creatinine 1.1 mg/dL (0.7-1.3) Estimated GFR (Cockcroft-Gault) 70.9 BUN/Creatinine Ratio 14 (6-20) Glucose Level 150 mg/dL (70-99) Calcium Level 9.4 mg/dL (8.5-10.1) Total Bilirubin 0.5 mg/dL (0.2-1.0) Aspartate Amino Transf (AST/SGOT) 18 U/L (15-37) Alanine Aminotransferase (ALT/SGPT) 21 U/L (16-63) Alkaline Phosphatase 66 U/L (46-116) Troponin I Quantitative < 0.017 ng/mL (0.000-0.055) Total Protein 6.9 g/dL (6.4-8.2) Albumin 3.8 g/dL (3.4-5.0) Albumin/Globulin Ratio 1.2 (1.0-1.7) Lipase 108 U/L (73-393) SARS-CoV-2 Antigen (Rapid) Negative (NEGATIVE) Laboratory Tests Test 10/07/20 11:20 10/07/20 13:15 White Blood Count 11.7 x10^3/uL (4.0-11.0) Red Blood Count 4.17 x10^6/uL (4.30-5.70) Hemoglobin 13.5 g/dL (13.0-17.5) Hematocrit 39.8 % (39.0-53.0) Mean Corpuscular Volume 96 fL (79-100) Mean Corpuscular Hemoglobin 32 pg (25-35) Mean Corpuscular Hemoglobin Concent 34 g/dL (31-37) Red Cell Distribution Width 13.7 % (11.5-14.5) Platelet Count 456 x10^3/uL (140-400) Neutrophils (%) (Auto) 77 % (31-73) Lymphocytes (%) (Auto) 15 % (24-48) Monocytes (%) (Auto) 6 % (0-9) Eosinophils (%) (Auto) 2 % (0-3) Basophils (%) (Auto) 0 % (0-3) Neutrophils # (Auto) 9.0 x10^3/uL (1.8-7.7) Lymphocytes # (Auto) 1.7 x10^3/uL (1.0-4.8) Monocytes # (Auto) 0.7 x10^3/uL (0.0-1.1) Eosinophils # (Auto) 0.2 x10^3/uL (0.0-0.7) Basophils # (Auto) 0.0 x10^3/uL (0.0-0.2) Prothrombin Time 12.9 SEC (11.7-14.0) Prothromb Time International Ratio 1.0 (0.8-1.1) Urine Collection Type Unknown Urine Color Caroline Urine Clarity Clear Urine pH 6.5 (<5.0-8.0) Urine Specific [place] 1.025 (1.000-1.030) Urine Protein Negative mg/dL (NEG-TRACE) Urine Glucose (UA) Negative mg/dL (NEG) Urine Ketones (Stick) Negative mg/dL (NEG) Urine Blood Negative (NEG) Urine Nitrite Negative (NEG) Urine Bilirubin Negative (NEG) Urine Urobilinogen Dipstick 1.0 mg/dL (0.2 mg/dL) Urine Leukocyte Esterase Negative (NEG) Urine RBC Occ /HPF (0-2) Urine WBC 1-4 /HPF (0-4) Urine Squamous Epithelial Cells Mod /LPF Urine Bacteria Few /HPF (0-FEW) Urine Mucus Mod /LPF Sodium Level 138 mmol/L (136-145) Potassium Level 3.9 mmol/L (3.5-5.1) Chloride Level 100 mmol/L (98-107) Carbon Dioxide Level 28 mmol/L (21-32) Anion Gap 10 (6-14) Blood Urea Nitrogen 15 mg/dL (8-26) Creatinine 1.1 mg/dL (0.7-1.3) Estimated GFR (Cockcroft-Gault) 70.9 BUN/Creatinine Ratio 14 (6-20) Glucose Level 150 mg/dL (70-99) Calcium Level 9.4 mg/dL (8.5-10.1) Total Bilirubin 0.5 mg/dL (0.2-1.0) Aspartate Amino Transf (AST/SGOT) 18 U/L (15-37) Alanine Aminotransferase (ALT/SGPT) 21 U/L (16-63) Alkaline Phosphatase 66 U/L (46-116) Troponin I Quantitative < 0.017 ng/mL (0.000-0.055) Total Protein 6.9 g/dL (6.4-8.2) Albumin 3.8 g/dL (3.4-5.0) Albumin/Globulin Ratio 1.2 (1.0-1.7) Lipase 108 U/L (73-393) SARS-CoV-2 Antigen (Rapid) Negative (NEGATIVE) VTE Prophylaxis Ordered VTE Prophylaxis Devices: Yes VTE Pharmacological Prophylaxi: No Assessment/Plan Assessment/Plan acute severe abdominal pain perforated gastric ulcer, to the OR, discussed with Dr. Moreno tobacco use disoder, patch Alcohol abuse, ativan iv x1, CIWA, banana bag chronic abd pain, s/p laminectomy, mult MS joint pain complaints Justifications for Admission Other Justification JUANCHO BLANCAS MD Oct 07, 2020 20:04
--- NOTE | 2020-10-07 22:00 | NUR ---
ADMIT NOTE The patient, VIKRAM WANG, 50 y/o, M admitted by JUANCHO BLANCAS MD, was given written information regarding hospital policies, unit procedures and contact persons. Patient orientated to room, plan of care discussed, and admit packet reviewed. Patient's belongings checked and allergies and home medications verified. Patient educated on use of EXTRACTIONS TECHNICIAN machine and verbalized understanding. Patient now in bed, bed in lowest/locked position, SCDs in place, and call light within reach; no other needs voiced at this time.
[2020-10-08 03:00] VITALS: BP 109/76
--- NOTE | 2020-10-08 03:27 | NUR ---
Patient c/o leakage from catheter site, reporting when he "pushed" to empty his bladder he felt urine on his legs; patient requested that catheter be removed. Mendez catheter removed at this time and patient tolerated well.
[2020-10-08] MEDS: PANTOPRAZOLE SODIUM IV DRIP 80 MG in IV NORMAL SALINE 100ML 100 ML IV SCH ×2 (06:13→17:47)
[2020-10-08] MEDS: PIPERACILLIN/TAZOBACTAM 3.375 GM in IV NORMAL SALINE 50ML 50 ML IV SCH ×3 (06:14→17:47)
[2020-10-08 07:00] VITALS: BP 111/75
[2020-10-08] MEDS ORDERED: SALIVA STIMULANT AGENT 44ML SPRAY BOTTLE. PO PRN (08:45)
[2020-10-08] MEDS ORDERED: IV NORMAL SALINE 1000ML BAG 1,000 ML IV ONE (08:45)
[2020-10-08 08:47] LABS: BASO % 0 % (0-3); EOS % 0 % (0-3); HEMATOCRIT 34.4 % (39.0-53.0); HEMOGLOBIN 11.7 g/dL (13.0-17.5); LYMPH # 0.7 x10^3/uL (1.0-4.8); LYMPH % 6 % (24-48); MEAN CORPUSCULAR HEMOGLOBIN 33 pg (25-35); MEAN CORPUSCULAR HGB CONC 34 g/dL (31-37); MEAN CORPUSCULAR VOLUME 96 fL (79-100); MONO # 0.8 x10^3/uL (0.0-1.1); MONO % 6 % (0-9); NEUT # 11.2 x10^3/uL (1.8-7.7); NEUT % 88 % (31-73); PLATELET COUNT 339 x10^3/uL (140-400); RED BLOOD COUNT 3.58 x10^6/uL (4.30-5.70); RED CELL DISTRIBUTION WIDTH 13.7 % (11.5-14.5); WHITE BLOOD COUNT 12.8 x10^3/uL (4.0-11.0)
--- NOTE | 2020-10-08 09:20 | NUR ---
[facility] following. Discussed with RN, pt from home, 2L oxygen (does not use at home), NPO, rapid COVID negative, CIWA protocol. PT/OT ordered. PAT referral for ETOH when pt is closer to discharge, per Dr. Quinton TREVIZO will continue to follow.
[2020-10-08 09:24] LABS: ALBUMIN 2.6 g/dL (3.4-5.0); ALBUMIN/GLOBULIN RATIO 0.9 (1.0-1.7); CALCIUM 7.7 mg/dL (8.5-10.1); CREATININE 0.7 mg/dL (0.7-1.3); GFR 119.4; POTASSIUM 3.8 mmol/L (3.5-5.1); TOTAL BILIRUBIN 1.2 mg/dL (0.2-1.0); TOTAL PROTEIN 5.5 g/dL (6.4-8.2)
--- NOTE | 2020-10-08 09:31 | PDOC ---
ISHAN GEORGE [employer]BLER 10/08/20 0931: SURGICAL PROGRESS NOTE DATE: 10/08/20 TIME: 09:29 Subjective wants to go home dozing during exam pain managed Vital Signs Vital Signs Date Time Temp Pulse Resp B/P (MAP) Pulse Ox O2 Delivery O2 Flow Rate FiO2 10/08/20 08:00 Nasal Cannula 2.0 10/08/20 07:00 98.6 84 14 111/75 (87) 96 98.6 I&O Intake and Output 10/08/20 07:00 Intake Total 3661.2 ml Output Total 1555 ml Balance 2106.2 ml Intake Oral 0 ml IV Total 3661.2 ml Output Urine Total 1425 ml Drainage Total 80 ml Estimated Blood Loss 50 ml General: Cooperative, No acute distress HEENT: Other (ng in place) Abdomen: Soft, Other (noelle serosang, binder in place) Labs Laboratory Tests Test 10/07/20 11:20 10/07/20 13:15 10/08/20 08:15 White Blood Count 11.7 x10^3/uL (4.0-11.0) 12.8 x10^3/uL (4.0-11.0) Red Blood Count 4.17 x10^6/uL (4.30-5.70) 3.58 x10^6/uL (4.30-5.70) Hemoglobin 13.5 g/dL (13.0-17.5) 11.7 g/dL (13.0-17.5) Hematocrit 39.8 % (39.0-53.0) 34.4 % (39.0-53.0) Mean Corpuscular Volume 96 fL (79-100) 96 fL (79-100) Mean Corpuscular Hemoglobin 32 pg (25-35) 33 pg (25-35) Mean Corpuscular Hemoglobin Concent 34 g/dL (31-37) 34 g/dL (31-37) Red Cell Distribution Width 13.7 % (11.5-14.5) 13.7 % (11.5-14.5) Platelet Count 456 x10^3/uL (140-400) 339 x10^3/uL (140-400) Neutrophils (%) (Auto) 77 % (31-73) 88 % (31-73) Lymphocytes (%) (Auto) 15 % (24-48) 6 % (24-48) Monocytes (%) (Auto) 6 % (0-9) 6 % (0-9) Eosinophils (%) (Auto) 2 % (0-3) 0 % (0-3) Basophils (%) (Auto) 0 % (0-3) 0 % (0-3) Neutrophils # (Auto) 9.0 x10^3/uL (1.8-7.7) 11.2 x10^3/uL (1.8-7.7) Lymphocytes # (Auto) 1.7 x10^3/uL (1.0-4.8) 0.7 x10^3/uL (1.0-4.8) Monocytes # (Auto) 0.7 x10^3/uL (0.0-1.1) 0.8 x10^3/uL (0.0-1.1) Eosinophils # (Auto) 0.2 x10^3/uL (0.0-0.7) 0.0 x10^3/uL (0.0-0.7) Basophils # (Auto) 0.0 x10^3/uL (0.0-0.2) 0.0 x10^3/uL (0.0-0.2) Prothrombin Time 12.9 SEC (11.7-14.0) Prothromb Time International Ratio 1.0 (0.8-1.1) Urine Collection Type Unknown Urine Color Caroline Urine Clarity Clear Urine pH 6.5 (<5.0-8.0) Urine Specific [place] 1.025 (1.000-1.030) Urine Protein Negative mg/dL (NEG-TRACE) Urine Glucose (UA) Negative mg/dL (NEG) Urine Ketones (Stick) Negative mg/dL (NEG) Urine Blood Negative (NEG) Urine Nitrite Negative (NEG) Urine Bilirubin Negative (NEG) Urine Urobilinogen Dipstick 1.0 mg/dL (0.2 mg/dL) Urine Leukocyte Esterase Negative (NEG) Urine RBC Occ /HPF (0-2) Urine WBC 1-4 /HPF (0-4) Urine Squamous Epithelial Cells Mod /LPF Urine Bacteria Few /HPF (0-FEW) Urine Mucus Mod /LPF Sodium Level 138 mmol/L (136-145) Potassium Level 3.9 mmol/L (3.5-5.1) Chloride Level 100 mmol/L (98-107) Carbon Dioxide Level 28 mmol/L (21-32) Anion Gap 10 (6-14) Blood Urea Nitrogen 15 mg/dL (8-26) Creatinine 1.1 mg/dL (0.7-1.3) Estimated GFR (Cockcroft-Gault) 70.9 BUN/Creatinine Ratio 14 (6-20) Glucose Level 150 mg/dL (70-99) Calcium Level 9.4 mg/dL (8.5-10.1) Total Bilirubin 0.5 mg/dL (0.2-1.0) Aspartate Amino Transf (AST/SGOT) 18 U/L (15-37) Alanine Aminotransferase (ALT/SGPT) 21 U/L (16-63) Alkaline Phosphatase 66 U/L (46-116) Troponin I Quantitative < 0.017 ng/mL (0.000-0.055) Total Protein 6.9 g/dL (6.4-8.2) Albumin 3.8 g/dL (3.4-5.0) Albumin/Globulin Ratio 1.2 (1.0-1.7) Lipase 108 U/L (73-393) SARS-CoV-2 Antigen (Rapid) Negative (NEGATIVE) Laboratory Tests Test 10/07/20 11:20 10/07/20 13:15 10/08/20 08:15 White Blood Count 11.7 x10^3/uL (4.0-11.0) 12.8 x10^3/uL (4.0-11.0) Red Blood Count 4.17 x10^6/uL (4.30-5.70) 3.58 x10^6/uL (4.30-5.70) Hemoglobin 13.5 g/dL (13.0-17.5) 11.7 g/dL (13.0-17.5) Hematocrit 39.8 % (39.0-53.0) 34.4 % (39.0-53.0) Mean Corpuscular Volume 96 fL (79-100) 96 fL (79-100) Mean Corpuscular Hemoglobin 32 pg (25-35) 33 pg (25-35) Mean Corpuscular Hemoglobin Concent 34 g/dL (31-37) 34 g/dL (31-37) Red Cell Distribution Width 13.7 % (11.5-14.5) 13.7 % (11.5-14.5) Platelet Count 456 x10^3/uL (140-400) 339 x10^3/uL (140-400) Neutrophils (%) (Auto) 77 % (31-73) 88 % (31-73) Lymphocytes (%) (Auto) 15 % (24-48) 6 % (24-48) Monocytes (%) (Auto) 6 % (0-9) 6 % (0-9) Eosinophils (%) (Auto) 2 % (0-3) 0 % (0-3) Basophils (%) (Auto) 0 % (0-3) 0 % (0-3) Neutrophils # (Auto) 9.0 x10^3/uL (1.8-7.7) 11.2 x10^3/uL (1.8-7.7) Lymphocytes # (Auto) 1.7 x10^3/uL (1.0-4.8) 0.7 x10^3/uL (1.0-4.8) Monocytes # (Auto) 0.7 x10^3/uL (0.0-1.1) 0.8 x10^3/uL (0.0-1.1) Eosinophils # (Auto) 0.2 x10^3/uL (0.0-0.7) 0.0 x10^3/uL (0.0-0.7) Basophils # (Auto) 0.0 x10^3/uL (0.0-0.2) 0.0 x10^3/uL (0.0-0.2) Prothrombin Time 12.9 SEC (11.7-14.0) Prothromb Time International Ratio 1.0 (0.8-1.1) Urine Collection Type Unknown Urine Color Caroline Urine Clarity Clear Urine pH 6.5 (<5.0-8.0) Urine Specific [place] 1.025 (1.000-1.030) Urine Protein Negative mg/dL (NEG-TRACE) Urine Glucose (UA) Negative mg/dL (NEG) Urine Ketones (Stick) Negative mg/dL (NEG) Urine Blood Negative (NEG) Urine Nitrite Negative (NEG) Urine Bilirubin Negative (NEG) Urine Urobilinogen Dipstick 1.0 mg/dL (0.2 mg/dL) Urine Leukocyte Esterase Negative (NEG) Urine RBC Occ /HPF (0-2) Urine WBC 1-4 /HPF (0-4) Urine Squamous Epithelial Cells Mod /LPF Urine Bacteria Few /HPF (0-FEW) Urine Mucus Mod /LPF Sodium Level 138 mmol/L (136-145) Potassium Level 3.9 mmol/L (3.5-5.1) Chloride Level 100 mmol/L (98-107) Carbon Dioxide Level 28 mmol/L (21-32) Anion Gap 10 (6-14) Blood Urea Nitrogen 15 mg/dL (8-26) Creatinine 1.1 mg/dL (0.7-1.3) Estimated GFR (Cockcroft-Gault) 70.9 BUN/Creatinine Ratio 14 (6-20) Glucose Level 150 mg/dL (70-99) Calcium Level 9.4 mg/dL (8.5-10.1) Total Bilirubin 0.5 mg/dL (0.2-1.0) Aspartate Amino Transf (AST/SGOT) 18 U/L (15-37) Alanine Aminotransferase (ALT/SGPT) 21 U/L (16-63) Alkaline Phosphatase 66 U/L (46-116) Troponin I Quantitative < 0.017 ng/mL (0.000-0.055) Total Protein 6.9 g/dL (6.4-8.2) Albumin 3.8 g/dL (3.4-5.0) Albumin/Globulin Ratio 1.2 (1.0-1.7) Lipase 108 U/L (73-393) SARS-CoV-2 Antigen (Rapid) Negative (NEGATIVE) Problem List Problems Medical Problems: (1) Perforated ulcer of intestine Status: Acute Assessment/Plan s/p repair doudenal perf ulcer continue NG, abx, PPI Justicifation of Admission Dx: Justifications for Admission: Justification of Admission Dx: Yes Comments: perforated Duodenal ulcer KHOA HAMPTON MD 10/08/20 1155: SURGICAL PROGRESS NOTE Assessment/Plan Agree with above ISHAN GEORGE APRN Oct 08, 2020 09:31 KHOA HAMPTON MD Oct 08, 2020 11:55
[2020-10-08 10:07] LABS: % BANDS 7 % (0-9); % LYMPHS 6 % (24-48); % MONOS 3 % (0-10); % SEGS 84 % (35-66); PLT ESTIMATE ADEQUATE (ADEQUATE)
[2020-10-08 11:00] VITALS: BP 123/83
[2020-10-08] MEDS: IV NORMAL SALINE 1000ML BAG 1,000 ML IV SCH ×2 (12:39→17:30)
--- NOTE | 2020-10-08 13:27 | PDOC ---
PROGRESS NOTES Date of Service: DATE: 10/08/20 TIME: 13:27 Chief Complaint Chief Complaint acute severe abdominal pain perforated gastric ulcer, to the OR on 10/07, POD #1, Dr. Moreno tobacco use disoder, patch Alcohol abuse, ativan iv x1, CIWA, banana bag given chroniclumbar back pain, s/p laminectomy, mult MS joint pain complaints History of Present Illness History of Present Illness acute abd pain pain better Vitals Vitals Vital Signs Date Time Temp Pulse Resp B/P (MAP) Pulse Ox O2 Delivery O2 Flow Rate FiO2 10/08/20 11:00 98.0 79 16 123/83 (96) 98 Room Air 98.0 10/08/20 08:00 2.0 Physical Exam General: Alert, Cooperative, No acute distress Heart: Regular rate Lungs: Clear, Wheezing Abdomen: Soft, Other (noelle serosang, binder in place) Extremities: No clubbing, No edema, Normal pulses Skin: No breakdown Labs LABS Laboratory Tests Test 10/08/20 08:15 White Blood Count 12.8 x10^3/uL (4.0-11.0) Red Blood Count 3.58 x10^6/uL (4.30-5.70) Hemoglobin 11.7 g/dL (13.0-17.5) Hematocrit 34.4 % (39.0-53.0) Mean Corpuscular Volume 96 fL (79-100) Mean Corpuscular Hemoglobin 33 pg (25-35) Mean Corpuscular Hemoglobin Concent 34 g/dL (31-37) Red Cell Distribution Width 13.7 % (11.5-14.5) Platelet Count 339 x10^3/uL (140-400) Neutrophils (%) (Auto) 88 % (31-73) Lymphocytes (%) (Auto) 6 % (24-48) Monocytes (%) (Auto) 6 % (0-9) Eosinophils (%) (Auto) 0 % (0-3) Basophils (%) (Auto) 0 % (0-3) Neutrophils # (Auto) 11.2 x10^3/uL (1.8-7.7) Lymphocytes # (Auto) 0.7 x10^3/uL (1.0-4.8) Monocytes # (Auto) 0.8 x10^3/uL (0.0-1.1) Eosinophils # (Auto) 0.0 x10^3/uL (0.0-0.7) Basophils # (Auto) 0.0 x10^3/uL (0.0-0.2) Segmented Neutrophils % 84 % (35-66) Band Neutrophils % 7 % (0-9) Lymphocytes % 6 % (24-48) Monocytes % 3 % (0-10) Platelet Estimate Adequate (ADEQUATE) Sodium Level 139 mmol/L (136-145) Potassium Level 3.8 mmol/L (3.5-5.1) Chloride Level 104 mmol/L (98-107) Carbon Dioxide Level 27 mmol/L (21-32) Anion Gap 8 (6-14) Blood Urea Nitrogen 15 mg/dL (8-26) Creatinine 0.7 mg/dL (0.7-1.3) Estimated GFR (Cockcroft-Gault) 119.4 BUN/Creatinine Ratio 21 (6-20) Glucose Level 94 mg/dL (70-99) Calcium Level 7.7 mg/dL (8.5-10.1) Total Bilirubin 1.2 mg/dL (0.2-1.0) Aspartate Amino Transf (AST/SGOT) 24 U/L (15-37) Alanine Aminotransferase (ALT/SGPT) 19 U/L (16-63) Alkaline Phosphatase 42 U/L (46-116) Total Protein 5.5 g/dL (6.4-8.2) Albumin 2.6 g/dL (3.4-5.0) Albumin/Globulin Ratio 0.9 (1.0-1.7) Assessment and Plan Assessmemt and Plan Problems Medical Problems: (1) Perforated ulcer of intestine Status: Acute Comment Review of Relevant I have reviewed the following items milla (where applicable) has been applied. Labs Laboratory Tests Test 10/07/20 11:20 10/07/20 13:15 10/08/20 08:15 White Blood Count 11.7 x10^3/uL (4.0-11.0) 12.8 x10^3/uL (4.0-11.0) Red Blood Count 4.17 x10^6/uL (4.30-5.70) 3.58 x10^6/uL (4.30-5.70) Hemoglobin 13.5 g/dL (13.0-17.5) 11.7 g/dL (13.0-17.5) Hematocrit 39.8 % (39.0-53.0) 34.4 % (39.0-53.0) Mean Corpuscular Volume 96 fL (79-100) 96 fL (79-100) Mean Corpuscular Hemoglobin 32 pg (25-35) 33 pg (25-35) Mean Corpuscular Hemoglobin Concent 34 g/dL (31-37) 34 g/dL (31-37) Red Cell Distribution Width 13.7 % (11.5-14.5) 13.7 % (11.5-14.5) Platelet Count 456 x10^3/uL (140-400) 339 x10^3/uL (140-400) Neutrophils (%) (Auto) 77 % (31-73) 88 % (31-73) Lymphocytes (%) (Auto) 15 % (24-48) 6 % (24-48) Monocytes (%) (Auto) 6 % (0-9) 6 % (0-9) Eosinophils (%) (Auto) 2 % (0-3) 0 % (0-3) Basophils (%) (Auto) 0 % (0-3) 0 % (0-3) Neutrophils # (Auto) 9.0 x10^3/uL (1.8-7.7) 11.2 x10^3/uL (1.8-7.7) Lymphocytes # (Auto) 1.7 x10^3/uL (1.0-4.8) 0.7 x10^3/uL (1.0-4.8) Monocytes # (Auto) 0.7 x10^3/uL (0.0-1.1) 0.8 x10^3/uL (0.0-1.1) Eosinophils # (Auto) 0.2 x10^3/uL (0.0-0.7) 0.0 x10^3/uL (0.0-0.7) Basophils # (Auto) 0.0 x10^3/uL (0.0-0.2) 0.0 x10^3/uL (0.0-0.2) Prothrombin Time 12.9 SEC (11.7-14.0) Prothromb Time International Ratio 1.0 (0.8-1.1) Urine Collection Type Unknown Urine Color Caroline Urine Clarity Clear Urine pH 6.5 (<5.0-8.0) Urine Specific [place] 1.025 (1.000-1.030) Urine Protein Negative mg/dL (NEG-TRACE) Urine Glucose (UA) Negative mg/dL (NEG) Urine Ketones (Stick) Negative mg/dL (NEG) Urine Blood Negative (NEG) Urine Nitrite Negative (NEG) Urine Bilirubin Negative (NEG) Urine Urobilinogen Dipstick 1.0 mg/dL (0.2 mg/dL) Urine Leukocyte Esterase Negative (NEG) Urine RBC Occ /HPF (0-2) Urine WBC 1-4 /HPF (0-4) Urine Squamous Epithelial Cells Mod /LPF Urine Bacteria Few /HPF (0-FEW) Urine Mucus Mod /LPF Sodium Level 138 mmol/L (136-145) 139 mmol/L (136-145) Potassium Level 3.9 mmol/L (3.5-5.1) 3.8 mmol/L (3.5-5.1) Chloride Level 100 mmol/L (98-107) 104 mmol/L (98-107) Carbon Dioxide Level 28 mmol/L (21-32) 27 mmol/L (21-32) Anion Gap 10 (6-14) 8 (6-14) Blood Urea Nitrogen 15 mg/dL (8-26) 15 mg/dL (8-26) Creatinine 1.1 mg/dL (0.7-1.3) 0.7 mg/dL (0.7-1.3) Estimated GFR (Cockcroft-Gault) 70.9 119.4 BUN/Creatinine Ratio 14 (6-20) 21 (6-20) Glucose Level 150 mg/dL (70-99) 94 mg/dL (70-99) Calcium Level 9.4 mg/dL (8.5-10.1) 7.7 mg/dL (8.5-10.1) Total Bilirubin 0.5 mg/dL (0.2-1.0) 1.2 mg/dL (0.2-1.0) Aspartate Amino Transf (AST/SGOT) 18 U/L (15-37) 24 U/L (15-37) Alanine Aminotransferase (ALT/SGPT) 21 U/L (16-63) 19 U/L (16-63) Alkaline Phosphatase 66 U/L (46-116) 42 U/L (46-116) Troponin I Quantitative < 0.017 ng/mL (0.000-0.055) Total Protein 6.9 g/dL (6.4-8.2) 5.5 g/dL (6.4-8.2) Albumin 3.8 g/dL (3.4-5.0) 2.6 g/dL (3.4-5.0) Albumin/Globulin Ratio 1.2 (1.0-1.7) 0.9 (1.0-1.7) Lipase 108 U/L (73-393) SARS-CoV-2 Antigen (Rapid) Negative (NEGATIVE) Segmented Neutrophils % 84 % (35-66) Band Neutrophils % 7 % (0-9) Lymphocytes % 6 % (24-48) Monocytes % 3 % (0-10) Platelet Estimate Adequate (ADEQUATE) Laboratory Tests Test 10/08/20 08:15 White Blood Count 12.8 x10^3/uL (4.0-11.0) Red Blood Count 3.58 x10^6/uL (4.30-5.70) Hemoglobin 11.7 g/dL (13.0-17.5) Hematocrit 34.4 % (39.0-53.0) Mean Corpuscular Volume 96 fL (79-100) Mean Corpuscular Hemoglobin 33 pg (25-35) Mean Corpuscular Hemoglobin Concent 34 g/dL (31-37) Red Cell Distribution Width 13.7 % (11.5-14.5) Platelet Count 339 x10^3/uL (140-400) Neutrophils (%) (Auto) 88 % (31-73) Lymphocytes (%) (Auto) 6 % (24-48) Monocytes (%) (Auto) 6 % (0-9) Eosinophils (%) (Auto) 0 % (0-3) Basophils (%) (Auto) 0 % (0-3) Neutrophils # (Auto) 11.2 x10^3/uL (1.8-7.7) Lymphocytes # (Auto) 0.7 x10^3/uL (1.0-4.8) Monocytes # (Auto) 0.8 x10^3/uL (0.0-1.1) Eosinophils # (Auto) 0.0 x10^3/uL (0.0-0.7) Basophils # (Auto) 0.0 x10^3/uL (0.0-0.2) Segmented Neutrophils % 84 % (35-66) Band Neutrophils % 7 % (0-9) Lymphocytes % 6 % (24-48) Monocytes % 3 % (0-10) Platelet Estimate Adequate (ADEQUATE) Sodium Level 139 mmol/L (136-145) Potassium Level 3.8 mmol/L (3.5-5.1) Chloride Level 104 mmol/L (98-107) Carbon Dioxide Level 27 mmol/L (21-32) Anion Gap 8 (6-14) Blood Urea Nitrogen 15 mg/dL (8-26) Creatinine 0.7 mg/dL (0.7-1.3) Estimated GFR (Cockcroft-Gault) 119.4 BUN/Creatinine Ratio 21 (6-20) Glucose Level 94 mg/dL (70-99) Calcium Level 7.7 mg/dL (8.5-10.1) Total Bilirubin 1.2 mg/dL (0.2-1.0) Aspartate Amino Transf (AST/SGOT) 24 U/L (15-37) Alanine Aminotransferase (ALT/SGPT) 19 U/L (16-63) Alkaline Phosphatase 42 U/L (46-116) Total Protein 5.5 g/dL (6.4-8.2) Albumin 2.6 g/dL (3.4-5.0) Albumin/Globulin Ratio 0.9 (1.0-1.7) Medications Current Medications Ondansetron HCl (Zofran) 4 mg 1X ONCE IVP Last administered on 10/07/20at 11:25; Start 10/07/20 at 11:15; Stop 10/07/20 at 11:16; Status DC Fentanyl Citrate (Fentanyl 2ml Vial) 75 mcg 1X ONCE IVP Last administered on 10/07/20at 11:26; Start 10/07/20 at 11:15; Stop 10/07/20 at 11:16; Status DC Iohexol (Omnipaque 300 Mg/ml) 75 ml 1X ONCE IV Last administered on 10/07/20at 11:30; Start 10/07/20 at 11:30; Stop 10/07/20 at 11:31; Status DC Info (CONTRAST GIVEN -- Rx MONITORING) 1 each PRN DAILY PRN MC SEE COMMENTS; Start 10/07/20 at 11:30; Stop 10/09/20 at 11:29 Iohexol (Omnipaque 300 Mg/ml) 75 ml 1X ONCE IV ; Start 10/07/20 at 12:15; Stop 10/07/20 at 12:16; Status DC Morphine Sulfate (Morphine Sulfate) 5 mg 1X ONCE IV Last administered on 10/07/20at 12:49; Start 10/07/20 at 12:45; Stop 10/07/20 at 12:46; Status DC Pantoprazole Sodium (PROTONIX VIAL for IV PUSH) 40 mg 1X ONCE IVP Last administered on 10/07/20at 12:48; Start 10/07/20 at 12:45; Stop 10/07/20 at 12:46; Status DC Piperacillin Sod/ Tazobactam Sod 3.375 gm/Sodium Chloride 50 ml @ 100 mls/hr 1X ONCE IV Last administered on 10/07/20at 13:10; Start 10/07/20 at 12:45; Stop 10/07/20 at 13:14; Status DC Ondansetron HCl (Zofran) 4 mg PRN Q8HRS PRN IV NAUSEA/VOMITING; Start 10/07/20 at 12:45; Stop 10/08/20 at 12:44; Status DC Morphine Sulfate (Morphine Sulfate) 4 mg PRN Q2HR PRN IV PAIN; Start 10/07/20 at 12:45; Stop 10/08/20 at 06:09; Status DC Sodium Chloride 1,000 ml @ 100 mls/hr Q10H IV Last administered on 10/08/20at 12:39; Start 10/07/20 at 12:45; Stop 10/08/20 at 12:44; Status DC Bupivacaine HCl/ Epinephrine Bitart (Sensorcain-Epi 0.5%-1:[id number] Mpf) 30 ml 1X ONCE INJ ; Start 10/07/20 at 13:15; Stop 10/07/20 at 13:16; Status DC Ondansetron HCl (Zofran) 4 mg PRN Q6HRS PRN IVP NAUSEA/VOMITING; Start 10/07/20 at 13:15; Stop 10/08/20 at 13:14; Status DC Fentanyl Citrate (Fentanyl 2ml Vial) 25 mcg PRN Q5MIN PRN IVP MILD PAIN 1-3; Start 10/07/20 at 13:15; Stop 10/08/20 at 13:14; Status DC Fentanyl Citrate (Fentanyl 2ml Vial) 50 mcg PRN Q5MIN PRN IVP MODERATE TO SEVERE PAIN; Start 10/07/20 at 13:15; Stop 10/08/20 at 13:14; Status DC Morphine Sulfate (Morphine Sulfate) 1 mg PRN Q10MIN PRN IVP SEVERE PAIN 7-10 Last administered on 10/07/20at 18:05; Start 10/07/20 at 13:15; Stop 10/08/20 at 13:14; Status DC Ringer's Solution 1,000 ml @ 30 mls/hr Q24H IV ; Start 10/07/20 at 13:15; Stop 10/08/20 at 02:13; Status DC Lidocaine HCl (Xylocaine-Mpf 1% 2ml Vial) 2 ml 1X PRN PRN ID IV START; Start 10/07/20 at 13:15; Stop 10/08/20 at 13:14; Status DC Hydromorphone HCl (Dilaudid) 0.5 mg PRN Q10MIN PRN IVP SEV PAIN, Second choice; Start 10/07/20 at 13:15; Stop 10/08/20 at 13:14; Status DC Prochlorperazine Edisylate (Compazine) 5 mg PACU PRN PRN IVP NAUSEA, MRX1; Start 10/07/20 at 13:15; Stop 10/08/20 at 13:14; Status DC Morphine Sulfate (Morphine Sulfate) 2 mg STK-MED ONCE .ROUTE ; Start 10/07/20 at 14:05; Stop 10/07/20 at 14:05; Status DC Fentanyl Citrate (Fentanyl 2ml Vial) 100 mcg STK-MED ONCE .ROUTE ; Start 10/07/20 at 14:14; Stop 10/07/20 at 14:15; Status DC Fentanyl Citrate (Fentanyl 2ml Vial) 100 mcg 1X ONCE IVP Last administered on 10/07/20at 14:21; Start 10/07/20 at 14:30; Stop 10/07/20 at 14:31; Status DC Propofol (Diprivan) 200 mg STK-MED ONCE IV ; Start 10/07/20 at 14:24; Stop 10/07/20 at 14:24; Status DC Lidocaine HCl (Lidocaine Pf 2% Vial) 5 ml STK-MED ONCE .ROUTE ; Start 10/07/20 at 14:24; Stop 10/07/20 at 14:24; Status DC Fentanyl Citrate (Fentanyl 2ml Vial) 100 mcg STK-MED ONCE .ROUTE ; Start 10/07/20 at 14:24; Stop 10/07/20 at 14:24; Status DC Succinylcholine Chloride (Anectine) 200 mg STK-MED ONCE .ROUTE ; Start 10/07/20 at 14:25; Stop 10/07/20 at 14:25; Status DC Rocuronium [place] (Zemuron) 50 mg STK-MED ONCE .ROUTE ; Start 10/07/20 at 14:25; Stop 10/07/20 at 14:25; Status DC Ondansetron HCl (Zofran) 4 mg STK-MED ONCE .ROUTE ; Start 10/07/20 at 15:36; Stop 10/07/20 at 15:36; Status DC Dexamethasone Sodium Phosphate (Decadron) 4 mg STK-MED ONCE .ROUTE ; Start 10/07/20 at 15:36; Stop 10/07/20 at 15:36; Status DC Desflurane (Suprane) 30 ml STK-MED ONCE IH ; Start 10/07/20 at 15:36; Stop 10/07/20 at 15:36; Status DC Ondansetron HCl (Zofran) 4 mg STK-MED ONCE .ROUTE ; Start 10/07/20 at 15:57; Stop 10/07/20 at 15:58; Status DC Glycopyrrolate (Robinul) 1 mg STK-MED ONCE .ROUTE ; Start 10/07/20 at 15:58; Stop 10/07/20 at 15:58; Status DC Neostigmine [place] (Neostigmine Methylsulfate) 5 mg STK-MED ONCE .ROUTE ; St art 10/07/20 at 15:58; Stop 10/07/20 at 15:58; Status DC Phenylephrine HCl (PHENYLEPHRINE in 0.9% NACL PF) 1 mg STK-MED ONCE IV ; Start 10/07/20 at 16:00; Stop 10/07/20 at 16:00; Status DC Naloxone HCl (Narcan) 0.4 mg PRN Q2MIN PRN IV SEE INSTRUCTIONS; Start 10/07/20 at 17:30 Sodium Chloride 1,000 ml @ 25 mls/hr Q24H IV ; Start 10/07/20 at 17:30 Hydromorphone HCl 30 ml @ 0 mls/hr CONT PRN PRN IV PER PROTOCOL Last administered on 10/07/20at 18:48; Start 10/07/20 at 17:30 Pantoprazole Sodium 80 mg/ Sodium Chloride 100 ml @ 10 mls/hr Q10H IV Last administered on 10/08/20at 06:13; Start 10/07/20 at 18:00; Stop 10/10/20 at 17:59 Piperacillin Sod/ Tazobactam Sod 3.375 gm/Sodium Chloride 50 ml @ 100 mls/hr Q6HRS IV Last administered on 10/08/20at 12:35; Start 10/07/20 at 18:00 Multivitamins 10 ml/Thiamine HCl 100 mg/Folic Acid 1 mg/Sodium Chloride 1,011.2 ml @ 1,000.088 mls/hr 1X ONCE IV Last administered on 10/07/20at 21:33; Start 10/07/20 at 20:00; Stop 10/07/20 at 21:00; Status DC Lorazepam (Ativan Inj) 2 mg PRN Q1HR PRN IV For CIWA 8-14; Start 10/07/20 at 20:00 Lorazepam (Ativan Inj) 4 mg PRN Q1HR PRN IV For CIWA 15 or greater; Start 10/07/20 at 20:00 Lorazepam (Ativan Inj) 1 mg 1X ONCE IVP Last administered on 10/07/20at 21:33; Start 10/07/20 at 20:00; Stop 10/07/20 at 20:03; Status DC Phenol (Chloraseptic) 1 spray PRN Q2HR PRN PO SORE THROAT; Start 10/07/20 at 20:00 Nicotine (Nicoderm Cq 14mg) 1 patch PRN DAILY PRN TD SMOKING CESSATION Last administered on 10/08/20at 08:49; Start 10/07/20 at 20:00 Influenza Virus Vaccine Quadrival (Fluzone Quad [id number] Syringe) 0.5 ml ONCE ONCE VAX IM ; Start 10/09/20 at 09:00; Stop 10/09/20 at 09:01 Sodium Chloride 1,000 ml @ 1,000 mls/hr 1X ONCE IV Last administered on 10/08/20at 10:08; Start 10/08/20 at 08:45; Stop 10/08/20 at 09:44; Status DC Saliva Substitute (Biotene Moisturizing Mouth) 2 spray PRN Q15MIN PRN PO DRY MOUTH Last administered on 10/08/20at 10:08; Start 10/08/20 at 08:45 Vitals/I & O Vital Sign - Last 24 Hours 10/07/20 10/07/20 10/07/20 10/07/20 14:08 14:21 14:22 14:28 Temp 98.6 98.6 Pulse 81 Resp 15 15 15 15 B/P (MAP) 122/77 Pulse Ox 99 99 99 99 O2 Delivery Room Air Room Air Room Air 10/07/20 10/07/20 10/07/20 10/07/20 17:41 17:41 17:54 17:55 Temp 101 100.5 101.0 100.5 Pulse 84 83 Resp 16 16 16 B/P (MAP) 122/79 120/76 Pulse Ox 100 100 100 O2 Delivery Simple Mask Mask Nasal Cannula Simple Mask O2 Flow Rate 8 10 8.0 8 10/07/20 10/07/20 10/07/20 10/07/20 18:05 18:10 18:25 18:48 Temp 100.5 100.3 100.5 100.3 Pulse 85 86 Resp 16 16 16 B/P (MAP) 117/79 122/85 Pulse Ox 100 99 99 O2 Delivery Simple Mask Nasal Cannula Nasal Cannula Nasal Cannula O2 Flow Rate 8.0 2 2 2.0 10/07/20 10/07/20 10/07/20 10/07/20 19:00 19:15 19:30 19:51 Temp 99.7 99.7 Pulse 86 85 84 Resp 20 20 14 B/P (MAP) 136/88 (104) 113/84 (94) 117/85 (96) Pulse Ox 99 98 99 99 O2 Delivery Room Air Room Air Room Air Nasal Cannula O2 Flow Rate 2.0 10/07/20 10/07/20 10/07/20 10/07/20 20:00 20:00 20:30 23:00 Temp 98.9 98.9 Pulse 81 85 80 Resp 20 20 20 B/P (MAP) 122/86 (98) 113/84 (94) 114/81 (92) Pulse Ox 98 99 O2 Delivery Nasal Cannula Nasal Cannula Nasal Cannula O2 Flow Rate 2.0 2.0 2.0 10/08/20 10/08/20 10/08/20 10/08/20 03:00 07:00 08:00 11:00 Temp 98.1 98.6 98.0 98.1 98.6 98.0 Pulse 84 84 79 Resp 18 14 16 B/P (MAP) 109/76 (87) 111/75 (87) 123/83 (96) Pulse Ox 99 96 98 O2 Delivery Nasal Cannula Room Air Nasal Cannula Room Air O2 Flow Rate 2.0 2.0 Intake and Output 10/07/20 10/07/20 10/08/20 15:00 23:00 07:00 Intake Total 150 ml 2450 ml 1061.2 ml Output Total 575 ml 980 ml Balance 150 ml 1875 ml 81.2 ml Justicifation of Admission Dx: Justifications for Admission: Justification of Admission Dx: Yes JUANCHO BLANCAS MD Oct 08, 2020 13:27
[2020-10-08 15:00] VITALS: BP 138/88
[2020-10-08 19:00] VITALS: BP 118/82
[2020-10-08 23:00] VITALS: BP 119/76
[2020-10-09] MEDS: PIPERACILLIN/TAZOBACTAM 3.375 GM in IV NORMAL SALINE 50ML 50 ML IV SCH ×5 (00:16→23:54)
[2020-10-09] MEDS: IV NORMAL SALINE 1000ML BAG 1,000 ML IV SCH (00:17)
[2020-10-09] MEDS: PANTOPRAZOLE SODIUM IV DRIP 80 MG in IV NORMAL SALINE 100ML 100 ML IV SCH ×3 (02:29→20:50)
[2020-10-09 03:00] VITALS: BP 132/89
[2020-10-09 07:00] VITALS: BP 127/87
[2020-10-09] MEDS ORDERED: FLU VACC QS 2020-21(6MOS+)/PF 0.5 ML SYRINGE. VAX IM ONE (09:00)
--- NOTE | 2020-10-09 09:27 | NUR ---
SW following. Discussed with RN, pt from home, room air, NPO, NG, ELADIA drain, omaira drain. Pt wanting to go home. PT/OT recommending home. SUSAN consulted for etoh use. SW will continue to follow. Addendum: 10/09/20 at 1052 by YSABEL DAVIS SW [place] BALLARD) met with pt, pt reported he drinks a pint of crown a day and 6 beers, but "after the pain of this he is not going to drink anymore." Pt reported he will follow up with the [facility] for et[facility], has had several treatments in the past. Pt also has a history of depression - which [facility]. Pt cleared for dc by SUSNA. No further SW needs.
--- NOTE | 2020-10-09 09:39 | PDOC ---
PROGRESS NOTES Date of Service: DATE: 10/09/20 TIME: 09:38 Chief Complaint Chief Complaint acute severe abdominal pain perforated gastric ulcer, OR with resection and omental patch , Dr. Moreno on 10/07 tobacco use disoder, patch Alcohol abuse, doing well, chronic back pain, s/p laminectomy, mult MS joint pain complaints History of Present Illness History of Present Illness acute abd pain pain better Vitals Vitals Vital Signs Date Time Temp Pulse Resp B/P (MAP) Pulse Ox O2 Delivery O2 Flow Rate FiO2 10/09/20 07:00 98.2 102 17 127/87 (100) 96 Room Air 98.2 10/08/20 20:00 2.0 Physical Exam General: Alert, Cooperative, No acute distress Heart: Regular rate Lungs: Clear, Wheezing Abdomen: Soft, Other (noelle serosang, binder in place) Extremities: No clubbing, No edema, Normal pulses Skin: No breakdown Review of Systems Review of Systems nausea back pain anxiety is OK Assessment and Plan Assessmemt and Plan Problems Medical Problems: (1) Perforated ulcer of intestine Status: Acute Comment Review of Relevant I have reviewed the following items milla (where applicable) has been applied. Labs Laboratory Tests Test 10/07/20 11:20 10/07/20 13:15 10/08/20 08:15 White Blood Count 11.7 x10^3/uL (4.0-11.0) 12.8 x10^3/uL (4.0-11.0) Red Blood Count 4.17 x10^6/uL (4.30-5.70) 3.58 x10^6/uL (4.30-5.70) Hemoglobin 13.5 g/dL (13.0-17.5) 11.7 g/dL (13.0-17.5) Hematocrit 39.8 % (39.0-53.0) 34.4 % (39.0-53.0) Mean Corpuscular Volume 96 fL (79-100) 96 fL (79-100) Mean Corpuscular Hemoglobin 32 pg (25-35) 33 pg (25-35) Mean Corpuscular Hemoglobin Concent 34 g/dL (31-37) 34 g/dL (31-37) Red Cell Distribution Width 13.7 % (11.5-14.5) 13.7 % (11.5-14.5) Platelet Count 456 x10^3/uL (140-400) 339 x10^3/uL (140-400) Neutrophils (%) (Auto) 77 % (31-73) 88 % (31-73) Lymphocytes (%) (Auto) 15 % (24-48) 6 % (24-48) Monocytes (%) (Auto) 6 % (0-9) 6 % (0-9) Eosinophils (%) (Auto) 2 % (0-3) 0 % (0-3) Basophils (%) (Auto) 0 % (0-3) 0 % (0-3) Neutrophils # (Auto) 9.0 x10^3/uL (1.8-7.7) 11.2 x10^3/uL (1.8-7.7) Lymphocytes # (Auto) 1.7 x10^3/uL (1.0-4.8) 0.7 x10^3/uL (1.0-4.8) Monocytes # (Auto) 0.7 x10^3/uL (0.0-1.1) 0.8 x10^3/uL (0.0-1.1) Eosinophils # (Auto) 0.2 x10^3/uL (0.0-0.7) 0.0 x10^3/uL (0.0-0.7) Basophils # (Auto) 0.0 x10^3/uL (0.0-0.2) 0.0 x10^3/uL (0.0-0.2) Prothrombin Time 12.9 SEC (11.7-14.0) Prothromb Time International Ratio 1.0 (0.8-1.1) Urine Collection Type Unknown Urine Color [place] Urine Clarity Clear Urine pH 6.5 (<5.0-8.0) Urine Specific [place] 1.025 (1.000-1.030) Urine Protein Negative mg/dL (NEG-TRACE) Urine Glucose (UA) Negative mg/dL (NEG) Urine Ketones (Stick) Negative mg/dL (NEG) Urine Blood Negative (NEG) Urine Nitrite Negative (NEG) Urine Bilirubin Negative (NEG) Urine Urobilinogen Dipstick 1.0 mg/dL (0.2 mg/dL) Urine Leukocyte Esterase Negative (NEG) Urine RBC Occ /HPF (0-2) Urine WBC 1-4 /HPF (0-4) Urine Squamous Epithelial Cells Mod /LPF Urine Bacteria Few /HPF (0-FEW) Urine Mucus Mod /LPF Sodium Level 138 mmol/L (136-145) 139 mmol/L (136-145) Potassium Level 3.9 mmol/L (3.5-5.1) 3.8 mmol/L (3.5-5.1) Chloride Level 100 mmol/L (98-107) 104 mmol/L (98-107) Carbon Dioxide Level 28 mmol/L (21-32) 27 mmol/L (21-32) Anion Gap 10 (6-14) 8 (6-14) Blood Urea Nitrogen 15 mg/dL (8-26) 15 mg/dL (8-26) Creatinine 1.1 mg/dL (0.7-1.3) 0.7 mg/dL (0.7-1.3) Estimated GFR (Cockcroft-Gault) 70.9 119.4 BUN/Creatinine Ratio 14 (6-20) 21 (6-20) Glucose Level 150 mg/dL (70-99) 94 mg/dL (70-99) Calcium Level 9.4 mg/dL (8.5-10.1) 7.7 mg/dL (8.5-10.1) Total Bilirubin 0.5 mg/dL (0.2-1.0) 1.2 mg/dL (0.2-1.0) Aspartate Amino Transf (AST/SGOT) 18 U/L (15-37) 24 U/L (15-37) Alanine Aminotransferase (ALT/SGPT) 21 U/L (16-63) 19 U/L (16-63) Alkaline Phosphatase 66 U/L (46-116) 42 U/L (46-116) Troponin I Quantitative < 0.017 ng/mL (0.000-0.055) Total Protein 6.9 g/dL (6.4-8.2) 5.5 g/dL (6.4-8.2) Albumin 3.8 g/dL (3.4-5.0) 2.6 g/dL (3.4-5.0) Albumin/Globulin Ratio 1.2 (1.0-1.7) 0.9 (1.0-1.7) Lipase 108 U/L (73-393) Coronavirus (PCR) Not detected (Not Detected) SARS-CoV-2 Antigen (Rapid) Negative (NEGATIVE) Segmented Neutrophils % 84 % (35-66) Band Neutrophils % 7 % (0-9) Lymphocytes % 6 % (24-48) Monocytes % 3 % (0-10) Platelet Estimate Adequate (ADEQUATE) Medications Current Medications Ondansetron HCl (Zofran) 4 mg 1X ONCE IVP Last administered on 10/07/20at 11 :25; Start 10/07/20 at 11:15; Stop 10/07/20 at 11:16; Status DC Fentanyl Citrate (Fentanyl 2ml Vial) 75 mcg 1X ONCE IVP Last administered on 10/07/20at 11:26; Start 10/07/20 at 11:15; Stop 10/07/20 at 11:16; Status DC Iohexol (Omnipaque 300 Mg/ml) 75 ml 1X ONCE IV Last administered on 10/07/20at 11:30; Start 10/07/20 at 11:30; Stop 10/07/20 at 11:31; Status DC Info (CONTRAST GIVEN -- Rx MONITORING) 1 each PRN DAILY PRN MC SEE COMMENTS; Start 10/07/20 at 11:30; Stop 10/09/20 at 11:29 Iohexol (Omnipaque 300 Mg/ml) 75 ml 1X ONCE IV ; Start 10/07/20 at 12:15; Stop 10/07/20 at 12:16; Status DC Morphine Sulfate (Morphine Sulfate) 5 mg 1X ONCE IV Last administered on 10/07/20at 12:49; Start 10/07/20 at 12:45; Stop 10/07/20 at 12:46; Status DC Pantoprazole Sodium (PROTONIX VIAL for IV PUSH) 40 mg 1X ONCE IVP Last administered on 10/07/20at 12:48; Start 10/07/20 at 12:45; Stop 10/07/20 at 12:46; Status DC Piperacillin Sod/ Tazobactam Sod 3.375 gm/Sodium Chloride 50 ml @ 100 mls/hr 1X ONCE IV Last administered on 10/07/20at 13:10; Start 10/07/20 at 12:45; Stop 10/07/20 at 13:14; Status DC Ondansetron HCl (Zofran) 4 mg PRN Q8HRS PRN IV NAUSEA/VOMITING; Start 10/07/20 at 12:45; Stop 10/08/20 at 12:44; Status DC Morphine Sulfate (Morphine Sulfate) 4 mg PRN Q2HR PRN IV PAIN; Start 10/07/20 at 12:45; Stop 10/08/20 at 06:09; Status DC Sodium Chloride 1,000 ml @ 100 mls/hr Q10H IV Last administered on 10/08/20at 12:39; Start 10/07/20 at 12:45; Stop 10/08/20 at 12:44; Status DC Bupivacaine HCl/ Epinephrine Bitart (Sensorcain-Epi 0.5%-1:[id number] Mpf) 30 ml 1X ONCE INJ ; Start 10/07/20 at 13:15; Stop 10/07/20 at 13:16; Status DC Ondansetron HCl (Zofran) 4 mg PRN Q6HRS PRN IVP NAUSEA/VOMITING; Start 10/07/20 at 13:15; Stop 10/08/20 at 13:14; Status DC Fentanyl Citrate (Fentanyl 2ml Vial) 25 mcg PRN Q5MIN PRN IVP MILD PAIN 1-3; Start 10/07/20 at 13:15; Stop 10/08/20 at 13:14; Status DC Fentanyl Citrate (Fentanyl 2ml Vial) 50 mcg PRN Q5MIN PRN IVP MODERATE TO SEVERE PAIN; Start 10/07/20 at 13:15; Stop 10/08/20 at 13:14; Status DC Morphine Sulfate (Morphine Sulfate) 1 mg PRN Q10MIN PRN IVP SEVERE PAIN 7-10 Last administered on 10/07/20at 18:05; Start 10/07/20 at 13:15; Stop 10/08/20 at 13:14; Status DC Ringer's Solution 1,000 ml @ 30 mls/hr Q24H IV ; Start 10/07/20 at 13:15; Stop 10/08/20 at 02:13; Status DC Lidocaine HCl (Xylocaine-Mpf 1% 2ml Vial) 2 ml 1X PRN PRN ID IV START; Start 10/07/20 at 13:15; Stop 10/08/20 at 13:14; Status DC Hydromorphone HCl (Dilaudid) 0.5 mg PRN Q10MIN PRN IVP SEV PAIN, Second choice; Start 10/07/20 at 13:15; Stop 10/08/20 at 13:14; Status DC Prochlorperazine Edisylate (Compazine) 5 mg PACU PRN PRN IVP NAUSEA, MRX1; Start 10/07/20 at 13:15; Stop 10/08/20 at 13:14; Status DC Morphine Sulfate (Morphine Sulfate) 2 mg STK-MED ONCE .ROUTE ; Start 10/07/20 at 14:05; Stop 10/07/20 at 14:05; Status DC Fentanyl Citrate (Fentanyl 2ml Vial) 100 mcg STK-MED ONCE .ROUTE ; Start 10/07/20 at 14:14; Stop 10/07/20 at 14:15; Status DC Fentanyl Citrate (Fentanyl 2ml Vial) 100 mcg 1X ONCE IVP Last administered on 10/07/20at 14:21; Start 10/07/20 at 14:30; Stop 10/07/20 at 14:31; Status DC Propofol (Diprivan) 200 mg STK-MED ONCE IV ; Start 10/07/20 at 14:24; Stop 10/07/20 at 14:24; Status DC Lidocaine HCl (Lidocaine Pf 2% Vial) 5 ml STK-MED ONCE .ROUTE ; Start 10/07/20 at 14:24; Stop 10/07/20 at 14:24; Status DC Fentanyl Citrate (Fentanyl 2ml Vial) 100 mcg STK-MED ONCE .ROUTE ; Start 10/07/20 at 14:24; Stop 10/07/20 at 14:24; Status DC Succinylcholine Chloride (Anectine) 200 mg STK-MED ONCE .ROUTE ; Start 10/07/20 at 14:25; Stop 10/07/20 at 14:25; Status DC Rocuronium [place] (Zemuron) 50 mg STK-MED ONCE .ROUTE ; Start 10/07/20 at 14:25; Stop 10/07/20 at 14:25; Status DC Ondansetron HCl (Zofran) 4 mg STK-MED ONCE .ROUTE ; Start 10/07/20 at 15:36; Stop 10/07/20 at 15:36; Status DC Dexamethasone Sodium Phosphate (Decadron) 4 mg STK-MED ONCE .ROUTE ; Start 10/07/20 at 15:36; Stop 10/07/20 at 15:36; Status DC Desflurane (Suprane) 30 ml STK-MED ONCE IH ; Start 10/07/20 at 15:36; Stop 10/07/20 at 15:36; Status DC Ondansetron HCl (Zofran) 4 mg STK-MED ONCE .ROUTE ; Start 10/07/20 at 15:57; Stop 10/07/20 at 15:58; Status DC Glycopyrrolate (Robinul) 1 mg STK-MED ONCE .ROUTE ; Start 10/07/20 at 15:58; Stop 10/07/20 at 15:58; Status DC Neostigmine [place] (Neostigmine Methylsulfate) 5 mg STK-MED ONCE .ROUTE ; Start 10/07/20 at 15:58; Stop 10/07/20 at 15:58; Status DC Phenylephrine HCl (PHENYLEPHRINE in 0.9% NACL PF) 1 mg STK-MED ONCE IV ; Start 10/07/20 at 16:00; Stop 10/07/20 at 16:00; Status DC Naloxone HCl (Narcan) 0.4 mg PRN Q2MIN PRN IV SEE INSTRUCTIONS; Start 10/07/20 at 17:30 Sodium Chloride 1,000 ml @ 25 mls/hr Q24H IV Last administered on 10/09/20at 00:17; Start 10/07/20 at 17:30 Hydromorphone HCl 30 ml @ 0 mls/hr CONT PRN PRN IV PER PROTOCOL Last administered on 10/07/20at 18:48; Start 10/07/20 at 17:30 Pantoprazole Sodium 80 mg/ Sodium Chloride 100 ml @ 10 mls/hr Q10H IV Last administered on 10/09/20at 02:29; Start 10/07/20 at 18:00; Stop 10/10/20 at 17:59 Piperacillin Sod/ Tazobactam Sod 3.375 gm/Sodium Chloride 50 ml @ 100 mls/hr Q6HRS IV Last administered on 10/09/20at 06:10; Start 10/07/20 at 18:00 Multivitamins 10 ml/Thiamine HCl 100 mg/Folic Acid 1 mg/Sodium Chloride 1,011.2 ml @ 1,000.088 mls/hr 1X ONCE IV Last administered on 10/07/20at 21:33; Start 10/07/20 at 20:00; Stop 10/07/20 at 21:00; Status DC Lorazepam (Ativan Inj) 2 mg PRN Q1HR PRN IV For CIWA 8-14; Start 10/07/20 at 20:00 Lorazepam (Ativan Inj) 4 mg PRN Q1HR PRN IV For CIWA 15 or greater; Start 10/07/20 at 20:00 Lorazepam (Ativan Inj) 1 mg 1X ONCE IVP Last administered on 10/07/20at 21:33; Start 10/07/20 at 20:00; Stop 10/07/20 at 20:03; Status DC Phenol (Chloraseptic) 1 spray PRN Q2HR PRN PO SORE THROAT; Start 10/07/20 at 20:00 Nicotine (Nicoderm Cq 14mg) 1 patch PRN DAILY PRN TD SMOKING CESSATION Last administered on 10/08/20at 08:49; Start 10/07/20 at 20:00 Influenza Virus Vaccine Quadrival (Fluzone Quad Syringe) 0.5 ml ONCE ONCE VAX IM ; Start 10/09/20 at 09:00; Stop 10/09/20 at 09:01; Status DC Sodium Chloride 1,000 ml @ 1,000 mls/hr 1X ONCE IV Last administered on 10/08/20at 10:08; Start 10/08/20 at 08:45; Stop 10/08/20 at 09:44; Status DC Saliva Substitute (Biotene Moisturizing Mouth) 2 spray PRN Q15MIN PRN PO DRY MOUTH Last administered on 10/08/20at 10:08; Start 10/08/20 at 08:45 Vitals/I & O Vital Sign - Last 24 Hours 10/08/20 10/08/20 10/08/20 10/08/20 11:00 15:00 19:00 20:00 Temp 98.0 98.8 99.2 98.0 98.8 99.2 Pulse 79 90 95 Resp 16 16 18 B/P (MAP) 123/83 (96) 138/88 (105) 118/82 (94) Pulse Ox 98 97 96 O2 Delivery Room Air Room Air Room Air Nasal Cannula O2 Flow Rate 2.0 10/08/20 10/09/20 10/09/20 23:00 03:00 07:00 Temp 99.2 98.9 98.2 99.2 98.9 98.2 Pulse 103 103 102 Resp 18 18 17 B/P (MAP) 119/76 (90) 132/89 (103) 127/87 (100) Pulse Ox 94 96 96 O2 Delivery Room Air Room Air Room Air Intake and Output 10/08/20 10/08/20 10/09/20 15:00 23:00 07:00 Intake Total 0 ml Output Total 810 ml 405 ml Balance -810 ml -405 ml Justicifation of Admission Dx: Justifications for Admission: Justification of Admission Dx: Yes JUANCHO BLANCAS MD Oct 09, 2020 09:39
[2020-10-09] MEDS ORDERED: IV NORMAL SALINE 1000ML BAG 1,000 ML IV ONE (09:45)
[2020-10-09] MEDS: AMINO AC 3%/ELECTROLYTE/GLYCER 1,000 ML IV SCH (09:45)
--- NOTE | 2020-10-09 09:57 | PDOC ---
ISHAN GEORGE NUTRITION SERVICES WORKER 10/09/20 0957: SURGICAL PROGRESS NOTE DATE: 10/09/20 TIME: 09:55 Subjective thirsty pain improved ambulated yesterday no flatus yet Vital Signs Vital Signs Date Time Temp Pulse Resp B/P (MAP) Pulse Ox O2 Delivery O2 Flow Rate FiO2 10/09/20 07:00 98.2 102 17 127/87 (100) 96 Room Air 98.2 10/08/20 20:00 2.0 I&O Intake and Output 10/09/20 07:00 Intake Total 0 ml Output Total 1215 ml Balance -1215 ml Intake Oral 0 ml Tube Feeding 0 ml Output Urine Total 1125 ml Drainage Total 90 ml # Voids 2 General: Alert, Oriented X3, Cooperative Abdomen: Soft, Other (incision c/d/i, no erythema, omaira in place, noelle serosang ) Labs Laboratory Tests Test 10/07/20 11:20 10/07/20 13:15 10/08/20 08:15 White Blood Count 11.7 x10^3/uL (4.0-11.0) 12.8 x10^3/uL (4.0-11.0) Red Blood Count 4.17 x10^6/uL (4.30-5.70) 3.58 x10^6/uL (4.30-5.70) Hemoglobin 13.5 g/dL (13.0-17.5) 11.7 g/dL (13.0-17.5) Hematocrit 39.8 % (39.0-53.0) 34.4 % (39.0-53.0) Mean Corpuscular Volume 96 fL (79-100) 96 fL (79-100) Mean Corpuscular Hemoglobin 32 pg (25-35) 33 pg (25-35) Mean Corpuscular Hemoglobin Concent 34 g/dL (31-37) 34 g/dL (31-37) Red Cell Distribution Width 13.7 % (11.5-14.5) 13.7 % (11.5-14.5) Platelet Count 456 x10^3/uL (140-400) 339 x10^3/uL (140-400) Neutrophils (%) (Auto) 77 % (31-73) 88 % (31-73) Lymphocytes (%) (Auto) 15 % (24-48) 6 % (24-48) Monocytes (%) (Auto) 6 % (0-9) 6 % (0-9) Eosinophils (%) (Auto) 2 % (0-3) 0 % (0-3) Basophils (%) (Auto) 0 % (0-3) 0 % (0-3) Neutrophils # (Auto) 9.0 x10^3/uL (1.8-7.7) 11.2 x10^3/uL (1.8-7.7) Lymphocytes # (Auto) 1.7 x10^3/uL (1.0-4.8) 0.7 x10^3/uL (1.0-4.8) Monocytes # (Auto) 0.7 x10^3/uL (0.0-1.1) 0.8 x10^3/uL (0.0-1.1) Eosinophils # (Auto) 0.2 x10^3/uL (0.0-0.7) 0.0 x10^3/uL (0.0-0.7) Basophils # (Auto) 0.0 x10^3/uL (0.0-0.2) 0.0 x10^3/uL (0.0-0.2) Prothrombin Time 12.9 SEC (11.7-14.0) Prothromb Time International Ratio 1.0 (0.8-1.1) Urine Collection Type Unknown Urine Color [place] Urine Clarity Clear Urine pH 6.5 (<5.0-8.0) Urine Specific [place] 1.025 (1.000-1.030) Urine Protein Negative mg/dL (NEG-TRACE) Urine Glucose (UA) Negative mg/dL (NEG) Urine Ketones (Stick) Negative mg/dL (NEG) Urine Blood Negative (NEG) Urine Nitrite Negative (NEG) Urine Bilirubin Negative (NEG) Urine Urobilinogen Dipstick 1.0 mg/dL (0.2 mg/dL) Urine Leukocyte Esterase Negative (NEG) Urine RBC Occ /HPF (0-2) Urine WBC 1-4 /HPF (0-4) Urine Squamous Epithelial Cells Mod /LPF Urine Bacteria Few /HPF (0-FEW) Urine Mucus Mod /LPF Sodium Level 138 mmol/L (136-145) 139 mmol/L (136-145) Potassium Level 3.9 mmol/L (3.5-5.1) 3.8 mmol/L (3.5-5.1) Chloride Level 100 mmol/L (98-107) 104 mmol/L (98-107) Carbon Dioxide Level 28 mmol/L (21-32) 27 mmol/L (21-32) Anion Gap 10 (6-14) 8 (6-14) Blood Urea Nitrogen 15 mg/dL (8-26) 15 mg/dL (8-26) Creatinine 1.1 mg/dL (0.7-1.3) 0.7 mg/dL (0.7-1.3) Estimated GFR (Cockcroft-Gault) 70.9 119.4 BUN/Creatinine Ratio 14 (6-20) 21 (6-20) Glucose Level 150 mg/dL (70-99) 94 mg/dL (70-99) Calcium Level 9.4 mg/dL (8.5-10.1) 7.7 mg/dL (8.5-10.1) Total Bilirubin 0.5 mg/dL (0.2-1.0) 1.2 mg/dL (0.2-1.0) Aspartate Amino Transf (AST/SGOT) 18 U/L (15-37) 24 U/L (15-37) Alanine Aminotransferase (ALT/SGPT) 21 U/L (16-63) 19 U/L (16-63) Alkaline Phosphatase 66 U/L (46-116) 42 U/L (46-116) Troponin I Quantitative < 0.017 ng/mL (0.000-0.055) Total Protein 6.9 g/dL (6.4-8.2) 5.5 g/dL (6.4-8.2) Albumin 3.8 g/dL (3.4-5.0) 2.6 g/dL (3.4-5.0) Albumin/Globulin Ratio 1.2 (1.0-1.7) 0.9 (1.0-1.7) Lipase 108 U/L (73-393) Coronavirus (PCR) Not detected (Not Detected) SARS-CoV-2 Antigen (Rapid) Negative (NEGATIVE) Segmented Neutrophils % 84 % (35-66) Band Neutrophils % 7 % (0-9) Lymphocytes % 6 % (24-48) Monocytes % 3 % (0-10) Platelet Estimate Adequate (ADEQUATE) Problem List Problems Medical Problems: (1) Perforated ulcer of intestine Status: Acute Assessment/Plan s/p ulcer repair continue ng today, possible clamp tomorrow Justicifation of Admission Dx: Justifications for Admission: Justification of Admission Dx: Yes KHOA HAMPTON MD 10/09/20 1026: SURGICAL PROGRESS NOTE Assessment/Plan agree with above ISHAN GEORGE APRN Oct 09, 2020 09:57 KHOA HAMPTON MD Oct 09, 2020 10:26
[2020-10-09] MEDS: NICOTINE 14MG PATCH. TD SCH (10:10)
[2020-10-09 11:00] VITALS: BP 143/95
[2020-10-09] MEDS: HYDROmorphone 12mg/30ml PCA 30 ML IV PRN (12:23)
[2020-10-09 15:00] VITALS: BP 136/92
[2020-10-09 19:00] VITALS: BP 138/93
[2020-10-09 23:00] VITALS: BP 130/94
[2020-10-10] MEDS: AMINO AC 3%/ELECTROLYTE/GLYCER 1,000 ML IV SCH ×3 (01:29→23:15)
[2020-10-10 03:00] VITALS: BP 134/90
[2020-10-10] MEDS: PANTOPRAZOLE SODIUM IV DRIP 80 MG in IV NORMAL SALINE 100ML 100 ML IV SCH ×2 (05:53→16:19)
[2020-10-10] MEDS: PIPERACILLIN/TAZOBACTAM 3.375 GM in IV NORMAL SALINE 50ML 50 ML IV SCH ×4 (05:54→23:33)
[2020-10-10 07:00] VITALS: BP 133/97
[2020-10-10] MEDS: NICOTINE 14MG PATCH. TD SCH (08:33)
[2020-10-10 09:15] LABS: BASO % 0 % (0-3); EOS # 0.2 x10^3/uL (0.0-0.7); EOS % 1 % (0-3); HEMOGLOBIN 12.6 g/dL (13.0-17.5); LYMPH # 0.6 x10^3/uL (1.0-4.8); LYMPH % 4 % (24-48); MEAN CORPUSCULAR HEMOGLOBIN 32 pg (25-35); MEAN CORPUSCULAR HGB CONC 33 g/dL (31-37); MEAN CORPUSCULAR VOLUME 96 fL (79-100); MONO # 0.7 x10^3/uL (0.0-1.1); MONO % 5 % (0-9); NEUT # 12.6 x10^3/uL (1.8-7.7); NEUT % 89 % (31-73); PLATELET COUNT 409 x10^3/uL (140-400); RED BLOOD COUNT 3.96 x10^6/uL (4.30-5.70); RED CELL DISTRIBUTION WIDTH 13.2 % (11.5-14.5); WHITE BLOOD COUNT 14.1 x10^3/uL (4.0-11.0)
--- NOTE | 2020-10-10 09:17 | PDOC ---
ISHAN GEORGE CIRCULATION DIRECTOR 10/10/20 0917: SURGICAL PROGRESS NOTE DATE: 10/10/20 TIME: 09:16 Subjective sore but moving + flatus Vital Signs Vital Signs Date Time Temp Pulse Resp B/P (MAP) Pulse Ox O2 Delivery O2 Flow Rate FiO2 10/10/20 07:00 97.8 99 16 133/97 (109) 94 Room Air 97.8 I&O Intake and Output 10/10/20 07:00 Intake Total 2060 ml Output Total 1060 ml Balance 1000 ml Intake Oral 0 ml IV Total 960 ml Other 1100 ml Output Urine Total 1000 ml Drainage Total 60 ml # Voids 1 General: Alert, Oriented X3, Cooperative HEENT: Other (ng in place) Abdomen: Soft, Other (noelle serosang) Labs Laboratory Tests Test 10/10/20 08:56 White Blood Count 14.1 x10^3/uL (4.0-11.0) Red Blood Count 3.96 x10^6/uL (4.30-5.70) Hemoglobin 12.6 g/dL (13.0-17.5) Hematocrit 38.0 % (39.0-53.0) Mean Corpuscular Volume 96 fL (79-100) Mean Corpuscular Hemoglobin 32 pg (25-35) Mean Corpuscular Hemoglobin Concent 33 g/dL (31-37) Red Cell Distribution Width 13.2 % (11.5-14.5) Platelet Count 409 x10^3/uL (140-400) Neutrophils (%) (Auto) 89 % (31-73) Lymphocytes (%) (Auto) 4 % (24-48) Monocytes (%) (Auto) 5 % (0-9) Eosinophils (%) (Auto) 1 % (0-3) Basophils (%) (Auto) 0 % (0-3) Neutrophils # (Auto) 12.6 x10^3/uL (1.8-7.7) Lymphocytes # (Auto) 0.6 x10^3/uL (1.0-4.8) Monocytes # (Auto) 0.7 x10^3/uL (0.0-1.1) Eosinophils # (Auto) 0.2 x10^3/uL (0.0-0.7) Basophils # (Auto) 0.0 x10^3/uL (0.0-0.2) Laboratory Tests Test 10/10/20 08:56 White Blood Count 14.1 x10^3/uL (4.0-11.0) Red Blood Count 3.96 x10^6/uL (4.30-5.70) Hemoglobin 12.6 g/dL (13.0-17.5) Hematocrit 38.0 % (39.0-53.0) Mean Corpuscular Volume 96 fL (79-100) Mean Corpuscular Hemoglobin 32 pg (25-35) Mean Corpuscular Hemoglobin Concent 33 g/dL (31-37) Red Cell Distribution Width 13.2 % (11.5-14.5) Platelet Count 409 x10^3/uL (140-400) Neutrophils (%) (Auto) 89 % (31-73) Lymphocytes (%) (Auto) 4 % (24-48) Monocytes (%) (Auto) 5 % (0-9) Eosinophils (%) (Auto) 1 % (0-3) Basophils (%) (Auto) 0 % (0-3) Neutrophils # (Auto) 12.6 x10^3/uL (1.8-7.7) Lymphocytes # (Auto) 0.6 x10^3/uL (1.0-4.8) Monocytes # (Auto) 0.7 x10^3/uL (0.0-1.1) Eosinophils # (Auto) 0.2 x10^3/uL (0.0-0.7) Basophils # (Auto) 0.0 x10^3/uL (0.0-0.2) Problem List Problems Medical Problems: (1) Perforated ulcer of intestine Status: Acute Assessment/Plan will clamp NG today Justicifation of Admission Dx: Justifications for Admission: Justification of Admission Dx: Yes KHOA HAMPTON MD 10/10/20 1217: SURGICAL PROGRESS NOTE Assessment/Plan Agree with above ISHAN GEORGE APRN Oct 10, 2020 09:17 KHOA HAMPTON MD Oct 10, 2020 12:17
[2020-10-10 09:39] LABS: ALBUMIN 2.5 g/dL (3.4-5.0); ALBUMIN/GLOBULIN RATIO 0.6 (1.0-1.7); CALCIUM 8.2 mg/dL (8.5-10.1); CREATININE 0.7 mg/dL (0.7-1.3); GFR 119.4; POTASSIUM 3.9 mmol/L (3.5-5.1); TOTAL BILIRUBIN 0.8 mg/dL (0.2-1.0); TOTAL PROTEIN 6.6 g/dL (6.4-8.2)
--- NOTE | 2020-10-10 09:46 | NUR ---
SW following. Discussed with RN, pt from home, room air, NPO, REPOSSESSOR. Pt having NG clamped today. Pt will return home when medically stable. SW will continue to follow.
[2020-10-10 11:00] VITALS: BP 133/96
--- NOTE | 2020-10-10 13:51 | PDOC ---
PROGRESS NOTES Date of Service: DATE: 10/10/20 TIME: 13:50 Chief Complaint Chief Complaint acute severe abdominal pain perforated gastric ulcer, to the OR on 10/07, POD #2, Dr. Moreno tobacco use disoder, patch Alcohol abuse, ativan iv x1, CIWA, banana bag given chroniclumbar back pain, s/p laminectomy, mult MS joint pain complaints History of Present Illness History of Present Illness acute abd pain pain better, walkign some NG tube to be clamped today, some flatus this AM, some green stool cont curernt has PPN Vitals Vitals Vital Signs Date Time Temp Pulse Resp B/P (MAP) Pulse Ox O2 Delivery O2 Flow Rate FiO2 10/10/20 11:00 98.2 98 16 133/96 (108) 99 Room Air 98.2 Physical Exam General: Alert, Oriented X3, Cooperative Heart: Regular rate Lungs: Clear, Wheezing Abdomen: Soft, Other (noelle serosang) Extremities: No clubbing, No edema, Normal pulses Skin: No breakdown Labs LABS Laboratory Tests Test 10/10/20 08:56 White Blood Count 14.1 x10^3/uL (4.0-11.0) Red Blood Count 3.96 x10^6/uL (4.30-5.70) Hemoglobin 12.6 g/dL (13.0-17.5) Hematocrit 38.0 % (39.0-53.0) Mean Corpuscular Volume 96 fL (79-100) Mean Corpuscular Hemoglobin 32 pg (25-35) Mean Corpuscular Hemoglobin Concent 33 g/dL (31-37) Red Cell Distribution Width 13.2 % (11.5-14.5) Platelet Count 409 x10^3/uL (140-400) Neutrophils (%) (Auto) 89 % (31-73) Lymphocytes (%) (Auto) 4 % (24-48) Monocytes (%) (Auto) 5 % (0-9) Eosinophils (%) (Auto) 1 % (0-3) Basophils (%) (Auto) 0 % (0-3) Neutrophils # (Auto) 12.6 x10^3/uL (1.8-7.7) Lymphocytes # (Auto) 0.6 x10^3/uL (1.0-4.8) Monocytes # (Auto) 0.7 x10^3/uL (0.0-1.1) Eosinophils # (Auto) 0.2 x10^3/uL (0.0-0.7) Basophils # (Auto) 0.0 x10^3/uL (0.0-0.2) Sodium Level 136 mmol/L (136-145) Potassium Level 3.9 mmol/L (3.5-5.1) Chloride Level 102 mmol/L (98-107) Carbon Dioxide Level 23 mmol/L (21-32) Anion Gap 11 (6-14) Blood Urea Nitrogen 10 mg/dL (8-26) Creatinine 0.7 mg/dL (0.7-1.3) Estimated GFR (Cockcroft-Gault) 119.4 BUN/Creatinine Ratio 14 (6-20) Glucose Level 111 mg/dL (70-99) Calcium Level 8.2 mg/dL (8.5-10.1) Total Bilirubin 0.8 mg/dL (0.2-1.0) Aspartate Amino Transf (AST/SGOT) 22 U/L (15-37) Alanine Aminotransferase (ALT/SGPT) 21 U/L (16-63) Alkaline Phosphatase 54 U/L (46-116) Total Protein 6.6 g/dL (6.4-8.2) Albumin 2.5 g/dL (3.4-5.0) Albumin/Globulin Ratio 0.6 (1.0-1.7) Assessment and Plan Assessmemt and Plan Problems Medical Problems: (1) Perforated ulcer of intestine Status: Acute Comment Review of Relevant I have reviewed the following items milla (where applicable) has been applied. Labs Laboratory Tests Test 10/10/20 08:56 White Blood Count 14.1 x10^3/uL (4.0-11.0) Red Blood Count 3.96 x10^6/uL (4.30-5.70) Hemoglobin 12.6 g/dL (13.0-17.5) Hematocrit 38.0 % (39.0-53.0) Mean Corpuscular Volume 96 fL (79-100) Mean Corpuscular Hemoglobin 32 pg (25-35) Mean Corpuscular Hemoglobin Concent 33 g/dL (31-37) Red Cell Distribution Width 13.2 % (11.5-14.5) Platelet Count 409 x10^3/uL (140-400) Neutrophils (%) (Auto) 89 % (31-73) Lymphocytes (%) (Auto) 4 % (24-48) Monocytes (%) (Auto) 5 % (0-9) Eosinophils (%) (Auto) 1 % (0-3) Basophils (%) (Auto) 0 % (0-3) Neutrophils # (Auto) 12.6 x10^3/uL (1.8-7.7) Lymphocytes # (Auto) 0.6 x10^3/uL (1.0-4.8) Monocytes # (Auto) 0.7 x10^3/uL (0.0-1.1) Eosinophils # (Auto) 0.2 x10^3/uL (0.0-0.7) Basophils # (Auto) 0.0 x10^3/uL (0.0-0.2) Sodium Level 136 mmol/L (136-145) Potassium Level 3.9 mmol/L (3.5-5.1) Chloride Level 102 mmol/L (98-107) Carbon Dioxide Level 23 mmol/L (21-32) Anion Gap 11 (6-14) Blood Urea Nitrogen 10 mg/dL (8-26) Creatinine 0.7 mg/dL (0.7-1.3) Estimated GFR (Cockcroft-Gault) 119.4 BUN/Creatinine Ratio 14 (6-20) Glucose Level 111 mg/dL (70-99) Calcium Level 8.2 mg/dL (8.5-10.1) Total Bilirubin 0.8 mg/dL (0.2-1.0) Aspartate Amino Transf (AST/SGOT) 22 U/L (15-37) Alanine Aminotransferase (ALT/SGPT) 21 U/L (16-63) Alkaline Phosphatase 54 U/L (46-116) Total Protein 6.6 g/dL (6.4-8.2) Albumin 2.5 g/dL (3.4-5.0) Albumin/Globulin Ratio 0.6 (1.0-1.7) Laboratory Tests Test 10/10/20 08:56 White Blood Count 14.1 x10^3/uL (4.0-11.0) Red Blood Count 3.96 x10^6/uL (4.30-5.70) Hemoglobin 12.6 g/dL (13.0-17.5) Hematocrit 38.0 % (39.0-53.0) Mean Corpuscular Volume 96 fL (79-100) Mean Corpuscular Hemoglobin 32 pg (25-35) Mean Corpuscular Hemoglobin Concent 33 g/dL (31-37) Red Cell Distribution Width 13.2 % (11.5-14.5) Platelet Count 409 x10^3/uL (140-400) Neutrophils (%) (Auto) 89 % (31-73) Lymphocytes (%) (Auto) 4 % (24-48) Monocytes (%) (Auto) 5 % (0-9) Eosinophils (%) (Auto) 1 % (0-3) Basophils (%) (Auto) 0 % (0-3) Neutrophils # (Auto) 12.6 x10^3/uL (1.8-7.7) Lymphocytes # (Auto) 0.6 x10^3/uL (1.0-4.8) Monocytes # (Auto) 0.7 x10^3/uL (0.0-1.1) Eosinophils # (Auto) 0.2 x10^3/uL (0.0-0.7) Basophils # (Auto) 0.0 x10^3/uL (0.0-0.2) Sodium Level 136 mmol/L (136-145) Potassium Level 3.9 mmol/L (3.5-5.1) Chloride Level 102 mmol/L (98-107) Carbon Dioxide Level 23 mmol/L (21-32) Anion Gap 11 (6-14) Blood Urea Nitrogen 10 mg/dL (8-26) Creatinine 0.7 mg/dL (0.7-1.3) Estimated GFR (Cockcroft-Gault) 119.4 BUN/Creatinine Ratio 14 (6-20) Glucose Level 111 mg/dL (70-99) Calcium Level 8.2 mg/dL (8.5-10.1) Total Bilirubin 0.8 mg/dL (0.2-1.0) Aspartate Amino Transf (AST/SGOT) 22 U/L (15-37) Alanine Aminotransferase (ALT/SGPT) 21 U/L (16-63) Alkaline Phosphatase 54 U/L (46-116) Total Protein 6.6 g/dL (6.4-8.2) Albumin 2.5 g/dL (3.4-5.0) Albumin/Globulin Ratio 0.6 (1.0-1.7) Medications Current Medications Ondansetron HCl (Zofran) 4 mg 1X ONCE IVP Last administered on 10/07/20at 11:25; Start 10/07/20 at 11:15; Stop 10/07/20 at 11:16; Status DC Fentanyl Citrate (Fentanyl 2ml Vial) 75 mcg 1X ONCE IVP Last administered on 10/07/20at 11:26; Start 10/07/20 at 11:15; Stop 10/07/20 at 11:16; Status DC Iohexol (Omnipaque 300 Mg/ml) 75 ml 1X ONCE IV Last administered on 10/07/20at 11:30; Start 10/07/20 at 11:30; Stop 10/07/20 at 11:31; Status DC Info (CONTRAST GIVEN -- Rx MONITORING) 1 each PRN DAILY PRN MC SEE COMMENTS; Start 10/07/20 at 11:30; Stop 10/09/20 at 11:29; Status DC Iohexol (Omnipaque 300 Mg/ml) 75 ml 1X ONCE IV ; Start 10/07/20 at 12:15; Stop 10/07/20 at 12:16; Status DC Morphine Sulfate (Morphine Sulfate) 5 mg 1X ONCE IV Last administered on 10/07/20at 12:49; Start 10/07/20 at 12:45; Stop 10/07/20 at 12:46; Status DC Pantoprazole Sodium (PROTONIX VIAL for IV PUSH) 40 mg 1X ONCE IVP Last administered on 10/07/20at 12:48; Start 10/07/20 at 12:45; Stop 10/07/20 at 12:46; Status DC Piperacillin Sod/ Tazobactam Sod 3.375 gm/Sodium Chloride 50 ml @ 100 mls/hr 1X ONCE IV Last administered on 10/07/20at 13:10; Start 10/07/20 at 12:45; Stop 10/07/20 at 13:14; Status DC Ondansetron HCl (Zofran) 4 mg PRN Q8HRS PRN IV NAUSEA/VOMITING; Start 10/07/20 at 12:45; Stop 10/08/20 at 12:44; Status DC Morphine Sulfate (Morphine Sulfate) 4 mg PRN Q2HR PRN IV PAIN; Start 10/07/20 at 12:45; Stop 10/08/20 at 06:09; Status DC Sodium Chloride 1,000 ml @ 100 mls/hr Q10H IV Last administered on 10/08/20at 12:39; Start 10/07/20 at 12:45; Stop 10/08/20 at 12:44; Status DC Bupivacaine HCl/ Epinephrine Bitart (Sensorcain-Epi 0.5%-1:[id number] Mpf) 30 ml 1X ONCE INJ ; Start 10/07/20 at 13:15; Stop 10/07/20 at 13:16; Status DC Ondansetron HCl (Zofran) 4 mg PRN Q6HRS PRN IVP NAUSEA/VOMITING; Start 10/07/20 at 13:15; Stop 10/08/20 at 13:14; Status DC Fentanyl Citrate (Fentanyl 2ml Vial) 25 mcg PRN Q5MIN PRN IVP MILD PAIN 1-3; Start 10/07/20 at 13:15; Stop 10/08/20 at 13:14; Status DC Fentanyl Citrate (Fentanyl 2ml Vial) 50 mcg PRN Q5MIN PRN IVP MODERATE TO SEVERE PAIN; Start 10/07/20 at 13:15; Stop 10/08/20 at 13:14; Status DC Morphine Sulfate (Morphine Sulfate) 1 mg PRN Q10MIN PRN IVP SEVERE PAIN 7-10 Last administered on 10/07/20at 18:05; Start 10/07/20 at 13:15; Stop 10/08/20 at 13:14; Status DC Ringer's Solution 1,000 ml @ 30 mls/hr Q24H IV ; Start 10/07/20 at 13:15; Stop 10/08/20 at 02:13; Status DC Lidocaine HCl (Xylocaine-Mpf 1% 2ml Vial) 2 ml 1X PRN PRN ID IV START; Start 10/07/20 at 13:15; Stop 10/08/20 at 13:14; Status DC Hydromorphone HCl (Dilaudid) 0.5 mg PRN Q10MIN PRN IVP SEV PAIN, Second choice; Start 10/07/20 at 13:15; Stop 10/08/20 at 13:14; Status DC Prochlorperazine Edisylate (Compazine) 5 mg PACU PRN PRN IVP NAUSEA, MRX1; Start 10/07/20 at 13:15; Stop 10/08/20 at 13:14; Status DC Morphine Sulfate (Morphine Sulfate) 2 mg STK-MED ONCE .ROUTE ; Start 10/07/20 at 14:05; Stop 10/07/20 at 14:05; Status DC Fentanyl Citrate (Fentanyl 2ml Vial) 100 mcg STK-MED ONCE .ROUTE ; Start 10/07/20 at 14:14; Stop 10/07/20 at 14:15; Status DC Fentanyl Citrate (Fentanyl 2ml Vial) 100 mcg 1X ONCE IVP Last administered on 10/07/20at 14:21; Start 10/07/20 at 14:30; Stop 10/07/20 at 14:31; Status DC Propofol (Diprivan) 200 mg STK-MED ONCE IV ; Start 10/07/20 at 14:24; Stop 10/07/20 at 14:24; Status DC Lidocaine HCl (Lidocaine Pf 2% Vial) 5 ml STK-MED ONCE .ROUTE ; Start 10/07/20 at 14:24; Stop 10/07/20 at 14:24; Status DC Fentanyl Citrate (Fentanyl 2ml Vial) 100 mcg STK-MED ONCE .ROUTE ; Start 10/07/20 at 14:24; Stop 10/07/20 at 14:24; Status DC Succinylcholine Chloride (Anectine) 200 mg STK-MED ONCE .ROUTE ; Start 10/07/20 at 14:25; Stop 10/07/20 at 14:25; Status DC Rocuronium [place] (Zemuron) 50 mg STK-MED ONCE .ROUTE ; Start 10/07/20 at 14:25; Stop 10/07/20 at 14:25; Status DC Ondansetron HCl (Zofran) 4 mg STK-MED ONCE .ROUTE ; Start 10/07/20 at 15:36; Stop 10/07/20 at 15:36; Status DC Dexamethasone Sodium Phosphate (Decadron) 4 mg STK-MED ONCE .ROUTE ; Start 10/07/20 at 15:36; Stop 10/07/20 at 15:36; Status DC Desflurane (Suprane) 30 ml STK-MED ONCE IH ; Start 10/07/20 at 15:36; Stop 10/07/20 at 15:36; Status DC Ondansetron HCl (Zofran) 4 mg STK-MED ONCE .ROUTE ; Start 10/07/20 at 15:57; Stop 10/07/20 at 15:58; Status DC Glycopyrrolate (Robinul) 1 mg STK-MED ONCE .ROUTE ; Start 10/07/20 at 15:58; Stop 10/07/20 at 15:58; Status DC Neostigmine [place] (Neostigmine Methylsulfate) 5 mg STK-MED ONCE .ROUTE ; Start 10/07/20 at 15:58; Stop 10/07/20 at 15:58; Status DC Phenylephrine HCl (PHENYLEPHRINE in 0.9% NACL PF) 1 mg STK-MED ONCE IV ; Start 10/07/20 at 16:00; Stop 10/07/20 at 16:00; Status DC Naloxone HCl (Narcan) 0.4 mg PRN Q2MIN PRN IV SEE INSTRUCTIONS; Start 10/07/20 at 17:30 Sodium Chloride 1,000 ml @ 25 mls/hr Q24H IV Last administered on 10/09/20at 00:17; Start 10/07/20 at 17:30 Hydromorphone HCl 30 ml @ 0 mls/hr CONT PRN PRN IV PER PROTOCOL Last adm inistered on 10/09/20at 12:23; Start 10/07/20 at 17:30 Pantoprazole Sodium 80 mg/ Sodium Chloride 100 ml @ 10 mls/hr Q10H IV Last administered on 10/10/20at 05:53; Start 10/07/20 at 18:00; Stop 10/10/20 at 17:59 Piperacillin Sod/ Tazobactam Sod 3.375 gm/Sodium Chloride 50 ml @ 100 mls/hr Q6HRS IV Last administered on 10/10/20at 12:19; Start 10/07/20 at 18:00 Multivitamins 10 ml/Thiamine HCl 100 mg/Folic Acid 1 mg/Sodium Chloride 1,011.2 ml @ 1,000.088 mls/hr 1X ONCE IV Last administered on 10/07/20at 21:33; Start 10/07/20 at 20:00; Stop 10/07/20 at 21:00; Status DC Lorazepam (Ativan Inj) 2 mg PRN Q1HR PRN IV For CIWA 8-14; Start 10/07/20 at 20:00 Lorazepam (Ativan Inj) 4 mg PRN Q1HR PRN IV For CIWA 15 or greater; Start 10/07/20 at 20:00 Lorazepam (Ativan Inj) 1 mg 1X ONCE IVP Last administered on 10/07/20at 21:33; Start 10/07/20 at 20:00; Stop 10/07/20 at 20:03; Status DC Phenol (Chloraseptic) 1 spray PRN Q2HR PRN PO SORE THROAT; Start 10/07/20 at 20:00 Nicotine (Nicoderm Cq 14mg) 1 patch PRN DAILY PRN TD SMOKING CESSATION Last administered on 10/08/20at 08:49; Start 10/07/20 at 20:00; Stop 10/09/20 at 09:38; Status DC Influenza Virus Vaccine Quadrival (Fluzone Quad Syringe) 0.5 ml ONCE ONCE VAX IM ; Start 10/09/20 at 09:00; Stop 10/09/20 at 09:01; Status DC Sodium Chloride 1,000 ml @ 1,000 mls/hr 1X ONCE IV Last administered on 10/08/20at 10:08; Start 10/08/20 at 08:45; Stop 10/08/20 at 09:44; Status DC Saliva Substitute (Biotene Moisturizing Mouth) 2 spray PRN Q15MIN PRN PO DRY MOUTH Last administered on 10/08/20at 10:08; Start 10/08/20 at 08:45 Amino Acids/ Glycerin/ Electrolytes 1,000 ml @ 80 mls/hr [id number] IV Last administered on 10/10/20at 12:22; Start 10/09/20 at 09:45 Sodium Chloride 1,000 ml @ 1,000 mls/hr 1X ONCE IV Last administered on 10/09/20at 10:10; Start 10/09/20 at 09:45; Stop 10/09/20 at 10:44; Status DC Nicotine (Nicoderm Cq 14mg) 1 patch DAILY TD Last administered on 10/10/20at 08:33; Start 10/09/20 at 09:45 Vitals/I & O Vital Sign - Last 24 Hours 10/09/20 10/09/20 10/09/20 10/09/20 15:00 19:00 20:00 23:00 Temp 98.6 98.5 99.7 98.6 98.5 99.7 Pulse 105 100 98 Resp 18 18 20 B/P (MAP) 136/92 (107) 138/93 (108) 130/94 (106) Pulse Ox 98 97 97 O2 Delivery Room Air Room Air Room Air Room Air 10/10/20 10/10/20 10/10/20 10/10/20 03:00 07:00 08:00 11:00 Temp 98.7 97.8 98.2 98.7 97.8 98.2 Pulse 100 99 98 Resp 18 16 16 B/P (MAP) 134/90 (105) 133/97 (109) 133/96 (108) Pulse Ox 94 94 99 O2 Delivery Room Air Room Air Room Air Room Air Intake and Output 10/09/20 10/09/20 10/10/20 15:00 23:00 07:00 Intake Total 0 ml 2060 ml Output Total 425 ml 635 ml Balance -425 ml 0 ml 1425 ml Nutrition Consultation Dietary Evaluation: Recommendations by RD: Dietary education by RD, Increase Calorie Intake, Protein supplementation, PPN/TPN Comments: REC advance diet as able per GI/MD, goal diet regular w/Ensure or Ensure clear supplements Continue w/PPN until advanced to regular diet and pt is eating/tolerating >50% meals Expected Outcomes/Goals: diet advancement Malnutrition Findings: Food and Nutrition Intake (Sev: <50% est energy req 5days Weight Status: Appropriate Justicifation of Admission Dx: Justifications for Admission: Justification of Admission Dx: Yes JUANCHO BLANCAS MD Oct 10, 2020 13:51
[2020-10-10 15:00] VITALS: BP 145/100
[2020-10-10] MEDS: IV NORMAL SALINE 1000ML BAG 1,000 ML IV SCH (16:53)
[2020-10-10 19:00] VITALS: BP 133/94
[2020-10-10 23:00] VITALS: BP 133/97
[2020-10-11 03:00] VITALS: BP 117/89
[2020-10-11] MEDS: AMINO AC 3%/ELECTROLYTE/GLYCER 1,000 ML IV SCH ×2 (03:56→17:05)
[2020-10-11] MEDS: PIPERACILLIN/TAZOBACTAM 3.375 GM in IV NORMAL SALINE 50ML 50 ML IV SCH ×3 (05:54→17:08)
[2020-10-11 07:00] VITALS: BP 127/95
[2020-10-11] MEDS: NICOTINE 14MG PATCH. TD SCH (08:43)
[2020-10-11 11:00] VITALS: BP 120/86
--- NOTE | 2020-10-11 12:26 | PDOC ---
PROGRESS NOTES Date of Service DATE: 10/11/20 TIME: 12:25 Subjective Subjective improving, feeling "much better", had a stool Objective Objective Vital Signs Date Time Temp Pulse Resp B/P (MAP) Pulse Ox O2 Delivery O2 Flow Rate FiO2 10/11/20 11:00 98.3 105 18 120/86 (97) 92 Room Air 98.3 10/08/20 20:00 2.0 Intake and Output 10/11/20 07:00 Output Total 990 ml Balance -990 ml Output Urine Total 300 ml Drainage Total 690 ml # Bowel Movements 1 Physical Exam Abdomen: Soft, No tenderness Assessment Assessment Problems Medical Problems: (1) Perforated ulcer of intestine Status: Acute Plan Plan of Care DC NG tube, start clears, await H pylori serology Comment Review of Relevant I have reviewed the following items milla (where applicable) has been applied. Labs Laboratory Tests Test 10/10/20 08:56 White Blood Count 14.1 x10^3/uL (4.0-11.0) Red Blood Count 3.96 x10^6/uL (4.30-5.70) Hemoglobin 12.6 g/dL (13.0-17.5) Hematocrit 38.0 % (39.0-53.0) Mean Corpuscular Volume 96 fL (79-100) Mean Corpuscular Hemoglobin 32 pg (25-35) Mean Corpuscular Hemoglobin Concent 33 g/dL (31-37) Red Cell Distribution Width 13.2 % (11.5-14.5) Platelet Count 409 x10^3/uL (140-400) Neutrophils (%) (Auto) 89 % (31-73) Lymphocytes (%) (Auto) 4 % (24-48) Monocytes (%) (Auto) 5 % (0-9) Eosinophils (%) (Auto) 1 % (0-3) Basophils (%) (Auto) 0 % (0-3) Neutrophils # (Auto) 12.6 x10^3/uL (1.8-7.7) Lymphocytes # (Auto) 0.6 x10^3/uL (1.0-4.8) Monocytes # (Auto) 0.7 x10^3/uL (0.0-1.1) Eosinophils # (Auto) 0.2 x10^3/uL (0.0-0.7) Basophils # (Auto) 0.0 x10^3/uL (0.0-0.2) Sodium Level 136 mmol/L (136-145) Potassium Level 3.9 mmol/L (3.5-5.1) Chloride Level 102 mmol/L (98-107) Carbon Dioxide Level 23 mmol/L (21-32) Anion Gap 11 (6-14) Blood Urea Nitrogen 10 mg/dL (8-26) Creatinine 0.7 mg/dL (0.7-1.3) Estimated GFR (Cockcroft-Gault) 119.4 BUN/Creatinine Ratio 14 (6-20) Glucose Level 111 mg/dL (70-99) Calcium Level 8.2 mg/dL (8.5-10.1) Total Bilirubin 0.8 mg/dL (0.2-1.0) Aspartate Amino Transf (AST/SGOT) 22 U/L (15-37) Alanine Aminotransferase (ALT/SGPT) 21 U/L (16-63) Alkaline Phosphatase 54 U/L (46-116) Total Protein 6.6 g/dL (6.4-8.2) Albumin 2.5 g/dL (3.4-5.0) Albumin/Globulin Ratio 0.6 (1.0-1.7) Medications Current Medications Ondansetron HCl (Zofran) 4 mg 1X ONCE IVP Last administered on 10/07/20at 11:25; Start 10/07/20 at 11:15; Stop 10/07/20 at 11:16; Status DC Fentanyl Citrate (Fentanyl 2ml Vial) 75 mcg 1X ONCE IVP Last administered on 10/07/20at 11:26; Start 10/07/20 at 11:15; Stop 10/07/20 at 11:16; Status DC Iohexol (Omnipaque 300 Mg/ml) 75 ml 1X ONCE IV Last administered on 10/07/20at 11:30; Start 10/07/20 at 11:30; Stop 10/07/20 at 11:31; Status DC Info (CONTRAST GIVEN -- Rx MONITORING) 1 each PRN DAILY PRN MC SEE COMMENTS; Start 10/07/20 at 11:30; Stop 10/09/20 at 11:29; Status DC Iohexol (Omnipaque 300 Mg/ml) 75 ml 1X ONCE IV ; Start 10/07/20 at 12:15; Stop 10/07/20 at 12:16; Status DC Morphine Sulfate (Morphine Sulfate) 5 mg 1X ONCE IV Last administered on 10/07/20at 12:49; Start 10/07/20 at 12:45; Stop 10/07/20 at 12:46; Status DC Pantoprazole Sodium (PROTONIX VIAL for IV PUSH) 40 mg 1X ONCE IVP Last administered on 10/07/20at 12:48; Start 10/07/20 at 12:45; Stop 10/07/20 at 12:46; Status DC Piperacillin Sod/ Tazobactam Sod 3.375 gm/Sodium Chloride 50 ml @ 100 mls/hr 1X ONCE IV Last administered on 10/07/20at 13:10; Start 10/07/20 at 12:45; Stop 10/07/20 at 13:14; Status DC Ondansetron HCl (Zofran) 4 mg PRN Q8HRS PRN IV NAUSEA/VOMITING; Start 10/07/20 at 12:45; Stop 10/08/20 at 12:44; Status DC Morphine Sulfate (Morphine Sulfate) 4 mg PRN Q2HR PRN IV PAIN; Start 10/07/20 at 12:45; Stop 10/08/20 at 06:09; Status DC Sodium Chloride 1,000 ml @ 100 mls/hr Q10H IV Last administered on 10/08/20at 12:39; Start 10/07/20 at 12:45; Stop 10/08/20 at 12:44; Status DC Bupivacaine HCl/ Epinephrine Bitart (Sensorcain-Epi 0.5%-1:[id number] Mpf) 30 ml 1X ONCE INJ ; Start 10/07/20 at 13:15; Stop 10/07/20 at 13:16; Status DC Ondansetron HCl (Zofran) 4 mg PRN Q6HRS PRN IVP NAUSEA/VOMITING; Start 10/07/20 at 13:15; Stop 10/08/20 at 13:14; Status DC Fentanyl Citrate (Fentanyl 2ml Vial) 25 mcg PRN Q5MIN PRN IVP MILD PAIN 1-3; Start 10/07/20 at 13:15; Stop 10/08/20 at 13:14; Status DC Fentanyl Citrate (Fentanyl 2ml Vial) 50 mcg PRN Q5MIN PRN IVP MODERATE TO SEVERE PAIN; Start 10/07/20 at 13:15; Stop 10/08/20 at 13:14; Status DC Morphine Sulfate (Morphine Sulfate) 1 mg PRN Q10MIN PRN IVP SEVERE PAIN 7-10 Last administered on 10/07/20at 18:05; Start 10/07/20 at 13:15; Stop 10/08/20 at 13:14; Status DC Ringer's Solution 1,000 ml @ 30 mls/hr Q24H IV ; Start 10/07/20 at 13:15; Stop 10/08/20 at 02:13; Status DC Lidocaine HCl (Xylocaine-Mpf 1% 2ml Vial) 2 ml 1X PRN PRN ID IV START; Start 1 12/08/19 at 13:15; Stop 10/08/20 at 13:14; Status DC Hydromorphone HCl (Dilaudid) 0.5 mg PRN Q10MIN PRN IVP SEV PAIN, Second choice; Start 10/07/20 at 13:15; Stop 10/08/20 at 13:14; Status DC Prochlorperazine Edisylate (Compazine) 5 mg PACU PRN PRN IVP NAUSEA, MRX1; Start 10/07/20 at 13:15; Stop 10/08/20 at 13:14; Status DC Morphine Sulfate (Morphine Sulfate) 2 mg STK-MED ONCE .ROUTE ; Start 10/07/20 at 14:05; Stop 10/07/20 at 14:05; Status DC Fentanyl Citrate (Fentanyl 2ml Vial) 100 mcg STK-MED ONCE .ROUTE ; Start 10/07/20 at 14:14; Stop 10/07/20 at 14:15; Status DC Fentanyl Citrate (Fentanyl 2ml Vial) 100 mcg 1X ONCE IVP Last administered on 10/07/20at 14:21; Start 10/07/20 at 14:30; Stop 10/07/20 at 14:31; Status DC Propofol (Diprivan) 200 mg STK-MED ONCE IV ; Start 10/07/20 at 14:24; Stop 10/07/20 at 14:24; Status DC Lidocaine HCl (Lidocaine Pf 2% Vial) 5 ml STK-MED ONCE .ROUTE ; Start 10/07/20 at 14:24; Stop 10/07/20 at 14:24; Status DC Fentanyl Citrate (Fentanyl 2ml Vial) 100 mcg STK-MED ONCE .ROUTE ; Start 10/07/20 at 14:24; Stop 10/07/20 at 14:24; Status DC Succinylcholine Chloride (Anectine) 200 mg STK-MED ONCE .ROUTE ; Start 10/07/20 at 14:25; Stop 10/07/20 at 14:25; Status DC Rocuronium [place] (Zemuron) 50 mg STK-MED ONCE .ROUTE ; Start 10/07/20 at 14:25; Stop 10/07/20 at 14:25; Status DC Ondansetron HCl (Zofran) 4 mg STK-MED ONCE .ROUTE ; Start 10/07/20 at 15:36; Stop 10/07/20 at 15:36; Status DC Dexamethasone Sodium Phosphate (Decadron) 4 mg STK-MED ONCE .ROUTE ; Start 10/07/20 at 15:36; Stop 10/07/20 at 15:36; Status DC Desflurane (Suprane) 30 ml STK-MED ONCE IH ; Start 10/07/20 at 15:36; Stop 10/07/20 at 15:36; Status DC Ondansetron HCl (Zofran) 4 mg STK-MED ONCE .ROUTE ; Start 10/07/20 at 15:57; Stop 10/07/20 at 15:58; Status DC Glycopyrrolate (Robinul) 1 mg STK-MED ONCE .ROUTE ; Start 10/07/20 at 15:58; Stop 10/07/20 at 15:58; Status DC Neostigmine [place] (Neostigmine Methylsulfate) 5 mg STK-MED ONCE .ROUTE ; Start 10/07/20 at 15:58; Stop 10/07/20 at 15:58; Status DC Phenylephrine HCl (PHENYLEPHRINE in 0.9% NACL PF) 1 mg STK-MED ONCE IV ; Start 10/07/20 at 16:00; Stop 10/07/20 at 16:00; Status DC Naloxone HCl (Narcan) 0.4 mg PRN Q2MIN PRN IV SEE INSTRUCTIONS; Start 10/07/20 at 17:30 Sodium Chloride 1,000 ml @ 25 mls/hr Q24H IV Last administered on 10/09/20at 00:17; Start 10/07/20 at 17:30 Hydromorphone HCl 30 ml @ 0 mls/hr CONT PRN PRN IV PER PROTOCOL Last administered on 10/09/20at 12:23; Start 10/07/20 at 17:30 Pantoprazole Sodium 80 mg/ Sodium Chloride 100 ml @ 10 mls/hr Q10H IV Last administered on 10/10/20at 16:19; Start 10/07/20 at 18:00; Stop 10/10/20 at 17:59; Status DC Piperacillin Sod/ Tazobactam Sod 3.375 gm/Sodium Chloride 50 ml @ 100 mls/hr Q6HRS IV Last administered on 10/11/20at 11:58; Start 10/07/20 at 18:00 Multivitamins 10 ml/Thiamine HCl 100 mg/Folic Acid 1 mg/Sodium Chloride 1,011.2 ml @ 1,000.088 mls/hr 1X ONCE IV Last administered on 10/07/20at 21:33; Start 10/07/20 at 20:00; Stop 10/07/20 at 21:00; Status DC Lorazepam (Ativan Inj) 2 mg PRN Q1HR PRN IV For CIWA 8-14; Start 10/07/20 at 20:00 Lorazepam (Ativan Inj) 4 mg PRN Q1HR PRN IV For CIWA 15 or greater; Start 10/07/20 at 20:00 Lorazepam (Ativan Inj) 1 mg 1X ONCE IVP Last administered on 10/07/20at 21:33; Start 10/07/20 at 20:00; Stop 10/07/20 at 20:03; Status DC Phenol (Chloraseptic) 1 spray PRN Q2HR PRN PO SORE THROAT; Start 10/07/20 at 20:00 Nicotine (Nicoderm Cq 14mg) 1 patch PRN DAILY PRN TD SMOKING CESSATION Last administered on 10/08/20at 08:49; Start 10/07/20 at 20:00; Stop 10/09/20 at 09:38; Status DC Influenza Virus Vaccine Quadrival (Fluzone Quad Syringe) 0.5 ml ONCE ONCE VAX IM ; Start 10/09/20 at 09:00; Stop 10/09/20 at 09:01; Status DC Sodium Chloride 1,000 ml @ 1,000 mls/hr 1X ONCE IV Last administered on 10/08/20at 10:08; Start 10/08/20 at 08:45; Stop 10/08/20 at 09:44; Status DC Saliva Substitute (Biotene Moisturizing Mouth) 2 spray PRN Q15MIN PRN PO DRY MOUTH Last administered on 10/08/20at 10:08; Start 10/08/20 at 08:45 Amino Acids/ Glycerin/ Electrolytes 1,000 ml @ 80 mls/hr [id number] IV Last administered on 10/11/20at 03:56; Start 10/09/20 at 09:45 Sodium Chloride 1,000 ml @ 1,000 mls/hr 1X ONCE IV Last administered on 10/09/20at 10:10; Start 10/09/20 at 09:45; Stop 10/09/20 at 10:44; Status DC Nicotine (Nicoderm Cq 14mg) 1 patch DAILY TD Last administered on 10/11/20at 08:43; Start 10/09/20 at 09:45 Vitals/I & O Vital Sign - Last 24 Hours 10/10/20 10/10/20 10/10/20 10/10/20 15:00 19:00 19:53 23:00 Temp 98.1 98.3 98.4 98.1 98.3 98.4 Pulse 105 105 113 Resp 17 18 18 B/P (MAP) 145/100 (115) 133/94 (107) 133/97 (109) Pulse Ox 97 95 95 O2 Delivery Room Air Room Air Room Air Room Air 10/11/20 10/11/20 10/11/20 10/11/20 03:00 07:00 08:00 11:00 Temp 97.9 98.7 98.3 97.9 98.7 98.3 Pulse 94 102 105 Resp 18 18 18 B/P (MAP) 117/89 (98) 127/95 (106) 120/86 (97) Pulse Ox 95 96 92 O2 Delivery Room Air Room Air Room Air Room Air Intake and Output 10/10/20 10/10/20 10/11/20 15:00 23:00 07:00 Output Total 60 ml 660 ml 270 ml Balance -60 ml -660 ml -270 ml Justifications for Admission Other Justification Nutrition Consultation Dietary Evaluation: Recommendations by RD: Dietary education by RD, Increase Calorie Intake, Protein supplementation, PPN/TPN Comments: REC advance diet as able per GI/MD, goal diet regular w/Ensure or Ensure clear supplements Continue w/PPN until advanced to regular diet and pt is eating/tolerating >50% meals Expected Outcomes/Goals: diet advancement Malnutrition Findings: Food and Nutrition Intake (Sev: <50% est energy req 5days Weight Status: Appropriate KHOA HAMPTON MD Oct 11, 2020 12:26
[2020-10-11] MEDS: PANTOPRAZOLE IV PUSH 40 MG VIAL. IVP SCH ×2 (12:37→16:25)
[2020-10-11] MEDS: IV NORMAL SALINE 1000ML BAG 1,000 ML IV SCH (13:27)
--- NOTE | 2020-10-11 14:13 | PDOC ---
[facility] PROGRESS NOTE Date of Service DOS: DATE: 10/11/20 TIME: 14:12 Chief Complaint Chief Complaint acute severe abdominal pain perforated gastric ulcer, to the OR on 10/07, POD #3, Dr. Moreno tobacco use disoder, patch Alcohol abuse, ativan iv x1, CIWA, banana bag given chroniclumbar back pain, s/p laminectomy, mult MS joint pain complaints History of Present Illness History of Present Illness 10/11/2020 No acute events overnight. NG tube removed today. Patient tolerating clear liquid diet and will advance as tolerated. Ambulating and pain is well controlled. Adequate cough. Patient's chart, labs, images were reviewed and discussed with supervisor case loading abd pain pain better, walkign some NG tube to be clamped today, some flatus this AM, some green stool cont curernt has PPN Vitals/I&O Vitals/I&O: Vital Signs Date Time Temp Pulse Resp B/P (MAP) Pulse Ox O2 Delivery O2 Flow Rate FiO2 10/11/20 11:00 98.3 105 18 120/86 (97) 92 Room Air 98.3 I & O 10/10/20 10/10/20 10/11/20 15:00 23:00 07:00 Output Total 60 ml 660 ml 270 ml Balance -60 ml -660 ml -270 ml Physical Exam General: Alert, Oriented X3, Cooperative Heart: Regular rate Lungs: Clear, Wheezing Abdomen: Soft, No tenderness Extremities: No clubbing, No edema, Normal pulses Skin: No breakdown Assessment and Plan Assessmemt and Plan Problems Medical Problems: (1) Perforated ulcer of intestine Status: Acute Comment Review of Relevant I have reviewed the following items milla (where applicable) has been applied. Medications: Current Medications Medications (Trade) Dose Ordered Sig/Natalee Route PRN Reason Start Time Stop Time Status Last Admin Dose Admin Pantoprazole Sodium (PROTONIX VIAL for IV PUSH) 40 mg BIDAC IVP 10/11/20 12:30 10/11/20 12:37 Justifications for Admission Other Justification JEFF FRANCO MD Oct 11, 2020 14:13
[2020-10-11 15:00] VITALS: BP 123/80
[2020-10-11 19:20] VITALS: BP 134/91
[2020-10-11 23:14] VITALS: BP 115/82
[2020-10-12] MEDS: PIPERACILLIN/TAZOBACTAM 3.375 GM in IV NORMAL SALINE 50ML 50 ML IV SCH ×5 (00:30→23:55)
[2020-10-12 03:00] VITALS: BP_SYST 126
[2020-10-12] MEDS: PANTOPRAZOLE IV PUSH 40 MG VIAL. IVP SCH ×2 (05:13→16:53)
[2020-10-12 07:00] VITALS: BP 121/85
[2020-10-12] MEDS: AMINO AC 3%/ELECTROLYTE/GLYCER 1,000 ML IV SCH ×2 (07:14→19:54)
[2020-10-12] MEDS: NICOTINE 14MG PATCH. TD SCH (08:37)
[2020-10-12 09:42] LABS: BASO % 0 % (0-3); EOS # 0.5 x10^3/uL (0.0-0.7); EOS % 6 % (0-3); HEMATOCRIT 36.3 % (39.0-53.0); LYMPH # 0.8 x10^3/uL (1.0-4.8); LYMPH % 10 % (24-48); MEAN CORPUSCULAR HEMOGLOBIN 31 pg (25-35); MEAN CORPUSCULAR HGB CONC 33 g/dL (31-37); MEAN CORPUSCULAR VOLUME 95 fL (79-100); MONO # 0.7 x10^3/uL (0.0-1.1); MONO % 9 % (0-9); NEUT # 5.9 x10^3/uL (1.8-7.7); NEUT % 75 % (31-73); PLATELET COUNT 503 x10^3/uL (140-400); RED BLOOD COUNT 3.83 x10^6/uL (4.30-5.70); RED CELL DISTRIBUTION WIDTH 13.7 % (11.5-14.5); WHITE BLOOD COUNT 7.9 x10^3/uL (4.0-11.0)
[2020-10-12 10:02] LABS: ALBUMIN 2.3 g/dL (3.4-5.0); ALBUMIN/GLOBULIN RATIO 0.6 (1.0-1.7); CALCIUM 8.5 mg/dL (8.5-10.1); CREATININE 0.7 mg/dL (0.7-1.3); GFR 119.4; POTASSIUM 3.9 mmol/L (3.5-5.1); TOTAL BILIRUBIN 0.4 mg/dL (0.2-1.0); TOTAL PROTEIN 5.9 g/dL (6.4-8.2)
[2020-10-12 11:00] VITALS: BP 120/82
--- NOTE | 2020-10-12 11:43 | PDOC ---
[facility] [facility] PROGRESS NOTE Date of Service DOS: DATE: 10/12/20 TIME: 11:41 Chief Complaint Chief Complaint acute severe abdominal pain perforated gastric ulcer, to the OR on 10/07, POD #3, Dr. Moreno tobacco use disoder, patch Alcohol abuse, ativan iv x1, CIWA, banana bag given chroniclumbar back pain, s/p laminectomy, mult MS joint pain complaints History of Present Illness History of Present Illness 10/11/2020 No acute events overnight. NG tube removed today. Patient tolerating clear liquid diet and will advance as tolerated. Ambulating and pain is well controlled. Adequate cough. Patient's chart, labs, images were reviewed and discussed with RN 10/12/2020 No acute vents overnight. Afebrile. Had small liquid bowel movement today. Complains of some chest congestion. Encouraged ambulation. Continue PPN and clear liquid diet, advance as tolerated. Vitals/I&O Vitals/I&O: Vital Signs Date Time Temp Pulse Resp B/P (MAP) Pulse Ox O2 Delivery O2 Flow Rate FiO2 10/12/20 11:00 98.0 84 18 120/82 (95) 100 Room Air 98.0 I & O 10/11/20 10/11/20 10/12/20 15:00 23:00 07:00 Intake Total 340 ml 400 ml Output Total 185 ml 490 ml Balance -185 ml 340 ml -90 ml Physical Exam General: Alert, Oriented X3, Cooperative Heart: Regular rate Lungs: Clear, Wheezing Abdomen: Soft, No tenderness Extremities: No clubbing, No edema, Normal pulses Skin: No breakdown Labs Labs: Laboratory Tests Test 10/12/20 09:15 White Blood Count 7.9 x10^3/uL (4.0-11.0) Red Blood Count 3.83 x10^6/uL (4.30-5.70) Hemoglobin 12.0 g/dL (13.0-17.5) Hematocrit 36.3 % (39.0-53.0) Mean Corpuscular Volume 95 fL (79-100) Mean Corpuscular Hemoglobin 31 pg (25-35) Mean Corpuscular Hemoglobin Concent 33 g/dL (31-37) Red Cell Distribution Width 13.7 % (11.5-14.5) Platelet Count 503 x10^3/uL (140-400) Neutrophils (%) (Auto) 75 % (31-73) Lymphocytes (%) (Auto) 10 % (24-48) Monocytes (%) (Auto) 9 % (0-9) Eosinophils (%) (Auto) 6 % (0-3) Basophils (%) (Auto) 0 % (0-3) Neutrophils # (Auto) 5.9 x10^3/uL (1.8-7.7) Lymphocytes # (Auto) 0.8 x10^3/uL (1.0-4.8) Monocytes # (Auto) 0.7 x10^3/uL (0.0-1.1) Eosinophils # (Auto) 0.5 x10^3/uL (0.0-0.7) Basophils # (Auto) 0.0 x10^3/uL (0.0-0.2) Sodium Level 135 mmol/L (136-145) Potassium Level 3.9 mmol/L (3.5-5.1) Chloride Level 101 mmol/L (98-107) Carbon Dioxide Level 24 mmol/L (21-32) Anion Gap 10 (6-14) Blood Urea Nitrogen 11 mg/dL (8-26) Creatinine 0.7 mg/dL (0.7-1.3) Estimated GFR (Cockcroft-Gault) 119.4 BUN/Creatinine Ratio 16 (6-20) Glucose Level 98 mg/dL (70-99) Calcium Level 8.5 mg/dL (8.5-10.1) Total Bilirubin 0.4 mg/dL (0.2-1.0) Aspartate Amino Transf (AST/SGOT) 19 U/L (15-37) Alanine Aminotransferase (ALT/SGPT) 23 U/L (16-63) Alkaline Phosphatase 47 U/L (46-116) Total Protein 5.9 g/dL (6.4-8.2) Albumin 2.3 g/dL (3.4-5.0) Albumin/Globulin Ratio 0.6 (1.0-1.7) Assessment and Plan Assessmemt and Plan Problems Medical Problems: (1) Perforated ulcer of intestine Status: Acute Comment Review of Relevant I have reviewed the following items milla (where applicable) has been applied. Medications: Current Medications Medications (Trade) Dose Ordered Sig/Natalee Route PRN Reason Start Time Stop Time Status Last Admin Dose Admin Pantoprazole Sodium (PROTONIX VIAL for IV PUSH) 40 mg BIDAC IVP 10/11/20 12:30 10/12/20 05:13 Justifications for Admission Other Justification CHERRY HERNANDEZ MD Oct 12, 2020 11:43
--- NOTE | 2020-10-12 12:29 | PDOC ---
PROGRESS NOTES Date of Service DATE: 10/12/20 TIME: 12:29 Subjective Subjective Doing well Objective Objective Vital Signs Date Time Temp Pulse Resp B/P (MAP) Pulse Ox O2 Delivery O2 Flow Rate FiO2 10/12/20 11:00 98.0 84 18 120/82 (95) 100 Room Air 98.0 10/08/20 20:00 2.0 Intake and Output 10/12/20 07:00 Intake Total 740 ml Output Total 675 ml Balance 65 ml Intake Oral 740 ml Output Urine Total 400 ml Gastric Drainage Total 0 ml Drainage Total 275 ml Physical Exam Abdomen: Soft, No tenderness Assessment Assessment Problems Medical Problems: (1) Perforated ulcer of intestine Status: Acute Plan Plan of Care Advance diet, await H pylori testing Comment Review of Relevant I have reviewed the following items milla (where applicable) has been applied. Labs Laboratory Tests Test 10/12/20 09:15 White Blood Count 7.9 x10^3/uL (4.0-11.0) Red Blood Count 3.83 x10^6/uL (4.30-5.70) Hemoglobin 12.0 g/dL (13.0-17.5) Hematocrit 36.3 % (39.0-53.0) Mean Corpuscular Volume 95 fL (79-100) Mean Corpuscular Hemoglobin 31 pg (25-35) Mean Corpuscular Hemoglobin Concent 33 g/dL (31-37) Red Cell Distribution Width 13.7 % (11.5-14.5) Platelet Count 503 x10^3/uL (140-400) Neutrophils (%) (Auto) 75 % (31-73) Lymphocytes (%) (Auto) 10 % (24-48) Monocytes (%) (Auto) 9 % (0-9) Eosinophils (%) (Auto) 6 % (0-3) Basophils (%) (Auto) 0 % (0-3) Neutrophils # (Auto) 5.9 x10^3/uL (1.8-7.7) Lymphocytes # (Auto) 0.8 x10^3/uL (1.0-4.8) Monocytes # (Auto) 0.7 x10^3/uL (0.0-1.1) Eosinophils # (Auto) 0.5 x10^3/uL (0.0-0.7) Basophils # (Auto) 0.0 x10^3/uL (0.0-0.2) Sodium Level 135 mmol/L (136-145) Potassium Level 3.9 mmol/L (3.5-5.1) Chloride Level 101 mmol/L (98-107) Carbon Dioxide Level 24 mmol/L (21-32) Anion Gap 10 (6-14) Blood Urea Nitrogen 11 mg/dL (8-26) Creatinine 0.7 mg/dL (0.7-1.3) Estimated GFR (Cockcroft-Gault) 119.4 BUN/Creatinine Ratio 16 (6-20) Glucose Level 98 mg/dL (70-99) Calcium Level 8.5 mg/dL (8.5-10.1) Total Bilirubin 0.4 mg/dL (0.2-1.0) Aspartate Amino Transf (AST/SGOT) 19 U/L (15-37) Alanine Aminotransferase (ALT/SGPT) 23 U/L (16-63) Alkaline Phosphatase 47 U/L (46-116) Total Protein 5.9 g/dL (6.4-8.2) Albumin 2.3 g/dL (3.4-5.0) Albumin/Globulin Ratio 0.6 (1.0-1.7) Laboratory Tests Test 10/12/20 09:15 White Blood Count 7.9 x10^3/uL (4.0-11.0) Red Blood Count 3.83 x10^6/uL (4.30-5.70) Hemoglobin 12.0 g/dL (13.0-17.5) Hematocrit 36.3 % (39.0-53.0) Mean Corpuscular Volume 95 fL (79-100) Mean Corpuscular Hemoglobin 31 pg (25-35) Mean Corpuscular Hemoglobin Concent 33 g/dL (31-37) Red Cell Distribution Width 13.7 % (11.5-14.5) Platelet Count 503 x10^3/uL (140-400) Neutrophils (%) (Auto) 75 % (31-73) Lymphocytes (%) (Auto) 10 % (24-48) Monocytes (%) (Auto) 9 % (0-9) Eosinophils (%) (Auto) 6 % (0-3) Basophils (%) (Auto) 0 % (0-3) Neutrophils # (Auto) 5.9 x10^3/uL (1.8-7.7) Lymphocytes # (Auto) 0.8 x10^3/uL (1.0-4.8) Monocytes # (Auto) 0.7 x10^3/uL (0.0-1.1) Eosinophils # (Auto) 0.5 x10^3/uL (0.0-0.7) Basophils # (Auto) 0.0 x10^3/uL (0.0-0.2) Sodium Level 135 mmol/L (136-145) Potassium Level 3.9 mmol/L (3.5-5.1) Chloride Level 101 mmol/L (98-107) Carbon Dioxide Level 24 mmol/L (21-32) Anion Gap 10 (6-14) Blood Urea Nitrogen 11 mg/dL (8-26) Creatinine 0.7 mg/dL (0.7-1.3) Estimated GFR (Cockcroft-Gault) 119.4 BUN/Creatinine Ratio 16 (6-20) Glucose Level 98 mg/dL (70-99) Calcium Level 8.5 mg/dL (8.5-10.1) Total Bilirubin 0.4 mg/dL (0.2-1.0) Aspartate Amino Transf (AST/SGOT) 19 U/L (15-37) Alanine Aminotransferase (ALT/SGPT) 23 U/L (16-63) Alkaline Phosphatase 47 U/L (46-116) Total Protein 5.9 g/dL (6.4-8.2) Albumin 2.3 g/dL (3.4-5.0) Albumin/Globulin Ratio 0.6 (1.0-1.7) Medications Current Medications Ondansetron HCl (Zofran) 4 mg 1X ONCE IVP Last administered on 10/07/20at 11:25; Start 10/07/20 at 11:15; Stop 10/07/20 at 11:16; Status DC Fentanyl Citrate (Fentanyl 2ml Vial) 75 mcg 1X ONCE IVP Last administered on 10/07/20at 11:26; Start 10/07/20 at 11:15; Stop 10/07/20 at 11:16; Status DC Iohexol (Omnipaque 300 Mg/ml) 75 ml 1X ONCE IV Last administered on 10/07/20at 11:30; Start 10/07/20 at 11:30; Stop 10/07/20 at 11:31; Status DC Info (CONTRAST GIVEN -- Rx MONITORING) 1 each PRN DAILY PRN MC SEE COMMENTS; Start 10/07/20 at 11:30; Stop 10/09/20 at 11:29; Status DC Iohexol (Omnipaque 300 Mg/ml) 75 ml 1X ONCE IV ; Start 10/07/20 at 12:15; Stop 10/07/20 at 12:16; Status DC Morphine Sulfate (Morphine Sulfate) 5 mg 1X ONCE IV Last administered on 10/07/20at 12:49; Start 10/07/20 at 12:45; Stop 10/07/20 at 12:46; Status DC Pantoprazole Sodium (PROTONIX VIAL for IV PUSH) 40 mg 1X ONCE IVP Last administered on 10/07/20at 12:48; Start 10/07/20 at 12:45; Stop 10/07/20 at 12:46; Status DC Piperacillin Sod/ Tazobactam Sod 3.375 gm/Sodium Chloride 50 ml @ 100 mls/hr 1X ONCE IV Last administered on 10/07/20at 13:10; Start 10/07/20 at 12:45; Stop 10/07/20 at 13:14; Status DC Ondansetron HCl (Zofran) 4 mg PRN Q8HRS PRN IV NAUSEA/VOMITING; Start 10/07/20 at 12:45; Stop 10/08/20 at 12:44; Status DC Morphine Sulfate (Morphine Sulfate) 4 mg PRN Q2HR PRN IV PAIN; Start 10/07/20 at 12:45; Stop 10/08/20 at 06:09; Status DC Sodium Chloride 1,000 ml @ 100 mls/hr Q10H IV Last administered on 10/08/20at 12:39; Start 10/07/20 at 12:45; Stop 10/08/20 at 12:44; Status DC Bupivacaine HCl/ Epinephrine Bitart (Sensorcain-Epi 0.5%-1:[id number] Mpf) 30 ml 1X ONCE INJ ; Start 10/07/20 at 13:15; Stop 10/07/20 at 13:16; Status DC Ondansetron HCl (Zofran) 4 mg PRN Q6HRS PRN IVP NAUSEA/VOMITING; Start 10/07/20 at 13:15; Stop 10/08/20 at 13:14; Status DC Fentanyl Citrate (Fentanyl 2ml Vial) 25 mcg PRN Q5MIN PRN IVP MILD PAIN 1-3; Start 10/07/20 at 13:15; Stop 10/08/20 at 13:14; Status DC Fentanyl Citrate (Fentanyl 2ml Vial) 50 mcg PRN Q5MIN PRN IVP MODERATE TO SEVERE PAIN; Start 10/07/20 at 13:15; Stop 10/08/20 at 13:14; Status DC Morphine Sulfate (Morphine Sulfate) 1 mg PRN Q10MIN PRN IVP SEVERE PAIN 7-10 Last administered on 10/07/20at 18:05; Start 10/07/20 at 13:15; Stop 10/08/20 at 13:14; Status DC Ringer's Solution 1,000 ml @ 30 mls/hr Q24H IV ; Start 10/07/20 at 13:15; Stop 10/08/20 at 02:13; Status DC Lidocaine HCl (Xylocaine-Mpf 1% 2ml Vial) 2 ml 1X PRN PRN ID IV START; Start 10/07/20 at 13:15; Stop 10/08/20 at 13:14; Status DC Hydromorphone HCl (Dilaudid) 0.5 mg PRN Q10MIN PRN IVP SEV PAIN, Second choice; Start 10/07/20 at 13:15; Stop 10/08/20 at 13:14; Status DC Prochlorperazine Edisylate (Compazine) 5 mg PACU PRN PRN IVP NAUSEA, MRX1; Start 10/07/20 at 13:15; Stop 10/08/20 at 13:14; Status DC Morphine Sulfate (Morphine Sulfate) 2 mg STK-MED ONCE .ROUTE ; Start 10/07/20 at 14:05; Stop 10/07/20 at 14:05; Status DC Fentanyl Citrate (Fentanyl 2ml Vial) 100 mcg STK-MED ONCE .ROUTE ; Start 10/07/20 at 14:14; Stop 10/07/20 at 14:15; Status DC Fentanyl Citrate (Fentanyl 2ml Vial) 100 mcg 1X ONCE IVP Last administered on 10/07/20at 14:21; Start 10/07/20 at 14:30; Stop 10/07/20 at 14:31; Status DC Propofol (Diprivan) 200 mg STK-MED ONCE IV ; Start 10/07/20 at 14:24; Stop 10/07/20 at 14:24; Status DC Lidocaine HCl (Lidocaine Pf 2% Vial) 5 ml STK-MED ONCE .ROUTE ; Start 10/07/20 at 14:24; Stop 10/07/20 at 14:24; Status DC Fentanyl Citrate (Fentanyl 2ml Vial) 100 mcg STK-MED ONCE .ROUTE ; Start 10/07/20 at 14:24; Stop 10/07/20 at 14:24; Status DC Succinylcholine Chloride (Anectine) 200 mg STK-MED ONCE .ROUTE ; Start 10/07/20 at 14:25; Stop 10/07/20 at 14:25; Status DC Rocuronium [place] (Zemuron) 50 mg STK-MED ONCE .ROUTE ; Start 10/07/20 at 14:25; Stop 10/07/20 at 14:25; Status DC Ondansetron HCl (Zofran) 4 mg STK-MED ONCE .ROUTE ; Start 10/07/20 at 15:36; Stop 10/07/20 at 15:36; Status DC Dexamethasone Sodium Phosphate (Decadron) 4 mg STK-MED ONCE .ROUTE ; Start 10/07/20 at 15:36; Stop 10/07/20 at 15:36; Status DC Desflurane (Suprane) 30 ml STK-MED ONCE IH ; Start 10/07/20 at 15:36; Stop 10/07/20 at 15:36; Status DC Ondansetron HCl (Zofran) 4 mg STK-MED ONCE .ROUTE ; Start 10/07/20 at 15:57; Stop 10/07/20 at 15:58; Status DC Glycopyrrolate (Robinul) 1 mg STK-MED ONCE .ROUTE ; Start 10/07/20 at 15:58; Stop 10/07/20 at 15:58; Status DC Neostigmine [place] (Neostigmine Methylsulfate) 5 mg STK-MED ONCE .ROUTE ; Start 10/07/20 at 15:58; Stop 10/07/20 at 15:58; Status DC Phenylephrine HCl (PHENYLEPHRINE in 0.9% NACL PF) 1 mg STK-MED ONCE IV ; Start 10/07/20 at 16:00; Stop 10/07/20 at 16:00; Status DC Naloxone HCl (Narcan) 0.4 mg PRN Q2MIN PRN IV SEE INSTRUCTIONS; Start 10/07/20 at 17:30 Sodium Chloride 1,000 ml @ 25 mls/hr Q24H IV Last administered on 10/09/20at 00:17; Start 10/07/20 at 17:30 Hydromorphone HCl 30 ml @ 0 mls/hr CONT PRN PRN IV PER PROTOCOL Last administered on 10/09/20at 12:23; Start 10/07/20 at 17:30 Pantoprazole Sodium 80 mg/ Sodium Chloride 100 ml @ 10 mls/hr Q10H IV Last administered on 10/10/20at 16:19; Start 10/07/20 at 18:00; Stop 10/10/20 at 17:59; Status DC Piperacillin Sod/ Tazobactam Sod 3.375 gm/Sodium Chloride 50 ml @ 100 mls/hr Q6HRS IV Last administered on 10/12/20at 11:47; Start 10/07/20 at 18:00 Multivitamins 10 ml/Thiamine HCl 100 mg/Folic Acid 1 mg/Sodium Chloride 1,011.2 ml @ 1,000.088 mls/hr 1X ONCE IV Last administered on 10/07/20at 21:33; Start 10/07/20 at 20:00; Stop 10/07/20 at 21:00; Status DC Lorazepam (Ativan Inj) 2 mg PRN Q1HR PRN IV For CIWA 8-14; Start 10/07/20 at 20:00 Lorazepam (Ativan Inj) 4 mg PRN Q1HR PRN IV For CIWA 15 or greater; Start 10/07/20 at 20:00 Lorazepam (Ativan Inj) 1 mg 1X ONCE IVP Last administered on 10/07/20at 21:33; Start 10/07/20 at 20:00; Stop 10/07/20 at 20:03; Status DC Phenol (Chloraseptic) 1 spray PRN Q2HR PRN PO SORE THROAT; Start 10/07/20 at 20:00 Nicotine (Nicoderm Cq 14mg) 1 patch PRN DAILY PRN TD SMOKING CESSATION Last administered on 10/08/20at 08:49; Start 10/07/20 at 20:00; Stop 10/09/20 at 09:38; Status DC Influenza Virus Vaccine Quadrival (Fluzone Quad Syringe) 0.5 ml ONCE ONCE VAX IM ; Start 10/09/20 at 09:00; Stop 10/09/20 at 09:01; Status DC Sodium Chloride 1,000 ml @ 1,000 mls/hr 1X ONCE IV Last administered on 10/08/20at 10:08; Start 10/08/20 at 08:45; Stop 10/08/20 at 09:44; Status DC Saliva Substitute (Biotene Moisturizing Mouth) 2 spray PRN Q15MIN PRN PO DRY MOUTH Last administered on 10/08/20at 10:08; Start 10/08/20 at 08:45 Amino Acids/ Glycerin/ Electrolytes 1,000 ml @ 80 mls/hr [id number] IV Last administered on 10/12/20at 07:14; Start 10/09/20 at 09:45 Sodium Chloride 1,000 ml @ 1,000 mls/hr 1X ONCE IV Last administered on 10/09/20at 10:10; Start 10/09/20 at 09:45; Stop 10/09/20 at 10:44; Status DC Nicotine (Nicoderm Cq 14mg) 1 patch DAILY TD Last administered on 10/12/20at 08:37; Start 10/09/20 at 09:45 Pantoprazole Sodium (PROTONIX VIAL for IV PUSH) 40 mg BIDAC IVP Last administered on 10/12/20at 05:13; Start 10/11/20 at 12:30 Vitals/I & O Vital Sign - Last 24 Hours 10/11/20 10/11/20 10/11/20 10/11/20 15:00 19:20 20:00 23:14 Temp 98.2 98.1 98.2 98.2 98.1 98.2 Pulse 100 96 91 Resp 18 18 18 B/P (MAP) 123/80 (94) 134/91 (105) 115/82 (93) Pulse Ox 97 96 95 O2 Delivery Room Air Room Air Room Air Room Air 10/12/20 10/12/20 10/12/20 10/12/20 03:00 07:00 08:00 09:27 Temp 98.0 98.3 98.0 98.3 Pulse 86 79 Resp 20 18 B/P (MAP) 126/ 121/85 (97) Pulse Ox 96 100 O2 Delivery Room Air Room Air Room Air Room Air 10/12/20 11:00 Temp 98.0 98.0 Pulse 84 Resp 18 B/P (MAP) 120/82 (95) Pulse Ox 100 O2 Delivery Room Air Intake and Output 10/11/20 10/11/20 10/12/20 15:00 23:00 07:00 Intake Total 340 ml 400 ml Output Total 185 ml 490 ml Balance -185 ml 340 ml -90 ml Justifications for Admission Other Justification Nutrition Consultation Dietary Evaluation: Recommendations by RD: Dietary education by RD, Increase Calorie Intake, Protein supplementation, PPN/TPN Comments: REC advance diet as able per GI/MD, goal diet regular w/Ensure or Ensure clear supplements Continue w/PPN until advanced to regular diet and pt is eating/tolerating >50% meals Expected Outcomes/Goals: diet advancement Malnutrition Findings: Food and Nutrition Intake (Sev: <50% est energy req 5days Weight Status: Appropriate KHOA HAMPTON MD Oct 12, 2020 12:29
[2020-10-12 15:00] VITALS: BP 113/85
[2020-10-12] MEDS: IV NORMAL SALINE 1000ML BAG 1,000 ML IV SCH (17:14)
[2020-10-12] MEDS: HYDROmorphone 12mg/30ml PCA 30 ML IV PRN (17:56)
[2020-10-12 19:00] VITALS: BP 117/88
[2020-10-12 23:00] VITALS: BP 110/78
[2020-10-13 03:00] VITALS: BP 140/75
[2020-10-13] MEDS: PIPERACILLIN/TAZOBACTAM 3.375 GM in IV NORMAL SALINE 50ML 50 ML IV SCH ×4 (06:12→23:33)
[2020-10-13 07:00] VITALS: BP 142/80
[2020-10-13] MEDS: PANTOPRAZOLE IV PUSH 40 MG VIAL. IVP SCH (08:19)
[2020-10-13] MEDS: AMINO AC 3%/ELECTROLYTE/GLYCER 1,000 ML IV SCH (08:20)
[2020-10-13] MEDS: NICOTINE 14MG PATCH. TD SCH (08:20)
--- NOTE | 2020-10-13 09:15 | PDOC ---
[employer] PROGRESS NOTE Date of Service DOS: DATE: 10/13/20 TIME: 09:12 Chief Complaint Chief Complaint acute severe abdominal pain perforated gastric ulcer, to the OR on 10/07, Dr. Moreno Severe malnutrition; PPN, advance diet as tolerated tobacco use disoder, patch Alcohol abuse, ativan iv x1, CIWA, banana bag given chroniclumbar back pain, s/p laminectomy, mult MS joint pain complaints History of Present Illness History of Present Illness 10/11/2020 No acute events overnight. NG tube removed today. Patient tolerating clear liquid diet and will advance as tolerated. Ambulating and pain is well controlled. Adequate cough. Patient's chart, labs, images were reviewed and discussed with RN 10/12/2020 No acute vents overnight. Afebrile. Had small liquid bowel movement today. Complains of some chest congestion. Encouraged ambulation. Continue PPN and clear liquid diet, advance as tolerated. 10/13/2020 Patient seen and examined. Afebrile, no acute events. D/C PPN. Patient on 100% of his regular diet. Plan for discharge tomorrow. Vitals/I&O Vitals/I&O: Vital Signs Date Time Temp Pulse Resp B/P (MAP) Pulse Ox O2 Delivery O2 Flow Rate FiO2 10/13/20 07:00 98.0 112 18 142/80 (100) 97 Room Air 98.0 10/12/20 18:26 2.0 I & O 10/12/20 10/12/20 10/13/20 15:00 23:00 07:00 Intake Total 1010 ml 1590.00 ml 500 ml Output Total 60 ml 900 ml Balance 1010 ml 1530.00 ml -400 ml Physical Exam General: Alert, Oriented X3, Cooperative Heart: Regular rate Lungs: Clear, Wheezing Abdomen: Soft, No tenderness Extremities: No clubbing, No edema, Normal pulses Skin: No breakdown Labs Labs: Laboratory Tests Test 10/12/20 09:15 White Blood Count 7.9 x10^3/uL (4.0-11.0) Red Blood Count 3.83 x10^6/uL (4.30-5.70) Hemoglobin 12.0 g/dL (13.0-17.5) Hematocrit 36.3 % (39.0-53.0) Mean Corpuscular Volume 95 fL (79-100) Mean Corpuscular Hemoglobin 31 pg (25-35) Mean Corpuscular Hemoglobin Concent 33 g/dL (31-37) Red Cell Distribution Width 13.7 % (11.5-14.5) Platelet Count 503 x10^3/uL (140-400) Neutrophils (%) (Auto) 75 % (31-73) Lymphocytes (%) (Auto) 10 % (24-48) Monocytes (%) (Auto) 9 % (0-9) Eosinophils (%) (Auto) 6 % (0-3) Basophils (%) (Auto) 0 % (0-3) Neutrophils # (Auto) 5.9 x10^3/uL (1.8-7.7) Lymphocytes # (Auto) 0.8 x10^3/uL (1.0-4.8) Monocytes # (Auto) 0.7 x10^3/uL (0.0-1.1) Eosinophils # (Auto) 0.5 x10^3/uL (0.0-0.7) Basophils # (Auto) 0.0 x10^3/uL (0.0-0.2) Sodium Level 135 mmol/L (136-145) Potassium Level 3.9 mmol/L (3.5-5.1) Chloride Level 101 mmol/L (98-107) Carbon Dioxide Level 24 mmol/L (21-32) Anion Gap 10 (6-14) Blood Urea Nitrogen 11 mg/dL (8-26) Creatinine 0.7 mg/dL (0.7-1.3) Estimated GFR (Cockcroft-Gault) 119.4 BUN/Creatinine Ratio 16 (6-20) Glucose Level 98 mg/dL (70-99) Calcium Level 8.5 mg/dL (8.5-10.1) Total Bilirubin 0.4 mg/dL (0.2-1.0) Aspartate Amino Transf (AST/SGOT) 19 U/L (15-37) Alanine Aminotransferase (ALT/SGPT) 23 U/L (16-63) Alkaline Phosphatase 47 U/L (46-116) Total Protein 5.9 g/dL (6.4-8.2) Albumin 2.3 g/dL (3.4-5.0) Albumin/Globulin Ratio 0.6 (1.0-1.7) Assessment and Plan Assessmemt and Plan Problems Medical Problems: (1) Perforated ulcer of intestine Status: Acute Comment Review of Relevant I have reviewed the following items milla (where applicable) has been applied. Justifications for Admission Other Justification CHERRY HERNANDEZ MD Oct 13, 2020 09:14
--- NOTE | 2020-10-13 10:07 | PDOC ---
PROGRESS NOTES Date of Service DATE: 10/13/20 TIME: 10:07 Subjective Subjective feeling well Objective Objective Vital Signs Date Time Temp Pulse Resp B/P (MAP) Pulse Ox O2 Delivery O2 Flow Rate FiO2 10/13/20 07:00 98.0 112 18 142/80 (100) 97 Room Air 98.0 10/12/20 18:26 2.0 Intake and Output 10/13/20 07:00 Intake Total 3100.00 ml Output Total 960 ml Balance 2140.00 ml Intake Oral 1950 ml IV Total 1150.00 ml Output Urine Total 900 ml Drainage Total 60 ml # Voids 3 # Bowel Movements 1 Physical Exam Abdomen: Soft Assessment Assessment Problems Medical Problems: (1) Perforated ulcer of intestine Status: Acute Plan Plan of Care Advance diet, poss DC tomorrow Comment Review of Relevant I have reviewed the following items milla (where applicable) has been applied. Labs Laboratory Tests Test 10/12/20 09:15 White Blood Count 7.9 x10^3/uL (4.0-11.0) Red Blood Count 3.83 x10^6/uL (4.30-5.70) Hemoglobin 12.0 g/dL (13.0-17.5) Hematocrit 36.3 % (39.0-53.0) Mean Corpuscular Volume 95 fL (79-100) Mean Corpuscular Hemoglobin 31 pg (25-35) Mean Corpuscular Hemoglobin Concent 33 g/dL (31-37) Red Cell Distribution Width 13.7 % (11.5-14.5) Platelet Count 503 x10^3/uL (140-400) Neutrophils (%) (Auto) 75 % (31-73) Lymphocytes (%) (Auto) 10 % (24-48) Monocytes (%) (Auto) 9 % (0-9) Eosinophils (%) (Auto) 6 % (0-3) Basophils (%) (Auto) 0 % (0-3) Neutrophils # (Auto) 5.9 x10^3/uL (1.8-7.7) Lymphocytes # (Auto) 0.8 x10^3/uL (1.0-4.8) Monocytes # (Auto) 0.7 x10^3/uL (0.0-1.1) Eosinophils # (Auto) 0.5 x10^3/uL (0.0-0.7) Basophils # (Auto) 0.0 x10^3/uL (0.0-0.2) Sodium Level 135 mmol/L (136-145) Potassium Level 3.9 mmol/L (3.5-5.1) Chloride Level 101 mmol/L (98-107) Carbon Dioxide Level 24 mmol/L (21-32) Anion Gap 10 (6-14) Blood Urea Nitrogen 11 mg/dL (8-26) Creatinine 0.7 mg/dL (0.7-1.3) Estimated GFR (Cockcroft-Gault) 119.4 BUN/Creatinine Ratio 16 (6-20) Glucose Level 98 mg/dL (70-99) Calcium Level 8.5 mg/dL (8.5-10.1) Total Bilirubin 0.4 mg/dL (0.2-1.0) Aspartate Amino Transf (AST/SGOT) 19 U/L (15-37) Alanine Aminotransferase (ALT/SGPT) 23 U/L (16-63) Alkaline Phosphatase 47 U/L (46-116) Total Protein 5.9 g/dL (6.4-8.2) Albumin 2.3 g/dL (3.4-5.0) Albumin/Globulin Ratio 0.6 (1.0-1.7) Medications Current Medications Ondansetron HCl (Zofran) 4 mg 1X ONCE IVP Last administered on 10/07/20at 11:25; Start 10/07/20 at 11:15; Stop 10/07/20 at 11:16; Status DC Fentanyl Citrate (Fentanyl 2ml Vial) 75 mcg 1X ONCE IVP Last administered on 10/07/20at 11:26; Start 10/07/20 at 11:15; Stop 10/07/20 at 11:16; Status DC Iohexol (Omnipaque 300 Mg/ml) 75 ml 1X ONCE IV Last administered on 10/07/20at 11:30; Start 10/07/20 at 11:30; Stop 10/07/20 at 11:31; Status DC Info (CONTRAST GIVEN -- Rx MONITORING) 1 each PRN DAILY PRN MC SEE COMMENTS; Start 10/07/20 at 11:30; Stop 10/09/20 at 11:29; Status DC Iohexol (Omnipaque 300 Mg/ml) 75 ml 1X ONCE IV ; Start 10/07/20 at 12:15; Stop 10/07/20 at 12:16; Status DC Morphine Sulfate (Morphine Sulfate) 5 mg 1X ONCE IV Last administered on 10/07/20at 12:49; Start 10/07/20 at 12:45; Stop 10/07/20 at 12:46; Status DC Pantoprazole Sodium (PROTONIX VIAL for IV PUSH) 40 mg 1X ONCE IVP Last administered on 10/07/20at 12:48; Start 10/07/20 at 12:45; Stop 10/07/20 at 12:46; Status DC Piperacillin Sod/ Tazobactam Sod 3.375 gm/Sodium Chloride 50 ml @ 100 mls/hr 1X ONCE IV Last administered on 10/07/20at 13:10; Start 10/07/20 at 12:45; Stop 10/07/20 at 13:14; Status DC Ondansetron HCl (Zofran) 4 mg PRN Q8HRS PRN IV NAUSEA/VOMITING; Start 10/07/20 at 12:45; Stop 10/08/20 at 12:44; Status DC Morphine Sulfate (Morphine Sulfate) 4 mg PRN Q2HR PRN IV PAIN; Start 10/07/20 at 12:45; Stop 10/08/20 at 06:09; Status DC Sodium Chloride 1,000 ml @ 100 mls/hr Q10H IV Last administered on 10/08/20at 12:39; Start 10/07/20 at 12:45; Stop 10/08/20 at 12:44; Status DC Bupivacaine HCl/ Epinephrine Bitart (Sensorcain-Epi 0.5%-1:[id number] Mpf) 30 ml 1X ONCE INJ ; Start 10/07/20 at 13:15; Stop 10/07/20 at 13:16; Status DC Ondansetron HCl (Zofran) 4 mg PRN Q6HRS PRN IVP NAUSEA/VOMITING; Start 10/07/20 at 13:15; Stop 10/08/20 at 13:14; Status DC Fentanyl Citrate (Fentanyl 2ml Vial) 25 mcg PRN Q5MIN PRN IVP MILD PAIN 1-3; Start 10/07/20 at 13:15; Stop 10/08/20 at 13:14; Status DC Fentanyl Citrate (Fentanyl 2ml Vial) 50 mcg PRN Q5MIN PRN IVP MODERATE TO SEVERE PAIN; Start 10/07/20 at 13:15; Stop 10/08/20 at 13:14; Status DC Morphine Sulfate (Morphine Sulfate) 1 mg PRN Q10MIN PRN IVP SEVERE PAIN 7-10 Last administered on 10/07/20at 18:05; Start 10/07/20 at 13:15; Stop 10/08/20 at 13:14; Status DC Ringer's Solution 1,000 ml @ 30 mls/hr Q24H IV ; Start 10/07/20 at 13:15; Stop 10/08/20 at 02:13; Status DC Lidocaine HCl (Xylocaine-Mpf 1% 2ml Vial) 2 ml 1X PRN PRN ID IV START; Start 10/07/20 at 13:15; Stop 10/08/20 at 13:14; Status DC Hydromorphone HCl (Dilaudid) 0.5 mg PRN Q10MIN PRN IVP SEV PAIN, Second choice; Start 10/07/20 at 13:15; Stop 10/08/20 at 13:14; Status DC Prochlorperazine Edisylate (Compazine) 5 mg PACU PRN PRN IVP NAUSEA, MRX1; Start 10/07/20 at 13:15; Stop 10/08/20 at 13:14; Status DC Morphine Sulfate (Morphine Sulfate) 2 mg STK-MED ONCE .ROUTE ; Start 10/07/20 at 14:05; Stop 10/07/20 at 14:05; Status DC Fentanyl Citrate (Fentanyl 2ml Vial) 100 mcg STK-MED ONCE .ROUTE ; Start 10/07/20 at 14:14; Stop 10/07/20 at 14:15; Status DC Fentanyl Citrate (Fentanyl 2ml Vial) 100 mcg 1X ONCE IVP Last administered on 10/07/20at 14:21; Start 10/07/20 at 14:30; Stop 10/07/20 at 14:31; Status DC Propofol (Diprivan) 200 mg STK-MED ONCE IV ; Start 10/07/20 at 14:24; Stop 10/07/20 at 14:24; Status DC Lidocaine HCl (Lidocaine Pf 2% Vial) 5 ml STK-MED ONCE .ROUTE ; Start 10/07/20 at 14:24; Stop 10/07/20 at 14:24; Status DC Fentanyl Citrate (Fentanyl 2ml Vial) 100 mcg STK-MED ONCE .ROUTE ; Start 10/07/20 at 14:24; Stop 10/07/20 at 14:24; Status DC Succinylcholine Chloride (Anectine) 200 mg STK-MED ONCE .ROUTE ; Start 10/07/20 at 14:25; Stop 10/07/20 at 14:25; Status DC Rocuronium [place] (Zemuron) 50 mg STK-MED ONCE .ROUTE ; Start 10/07/20 at 14:25; Stop 10/07/20 at 14:25; Status DC Ondansetron HCl (Zofran) 4 mg STK-MED ONCE .ROUTE ; Start 10/07/20 at 15:36; Stop 10/07/20 at 15:36; Status DC Dexamethasone Sodium Phosphate (Decadron) 4 mg STK-MED ONCE .ROUTE ; Start 10/07/20 at 15:36; Stop 10/07/20 at 15:36; Status DC Desflurane (Suprane) 30 ml STK-MED ONCE IH ; Start 10/07/20 at 15:36; Stop 10/07/20 at 15:36; Status DC Ondansetron HCl (Zofran) 4 mg STK-MED ONCE .ROUTE ; Start 10/07/20 at 15:57; Stop 10/07/20 at 15:58; Status DC Glycopyrrolate (Robinul) 1 mg STK-MED ONCE .ROUTE ; Start 10/07/20 at 15:58; Stop 10/07/20 at 15:58; Status DC Neostigmine [place] (Neostigmine Methylsulfate) 5 mg STK-MED ONCE .ROUTE ; Start 10/07/20 at 15:58; Stop 10/07/20 at 15:58; Status DC Phenylephrine HCl (PHENYLEPHRINE in 0.9% NACL PF) 1 mg STK-MED ONCE IV ; Start 10/07/20 at 16:00; Stop 10/07/20 at 16:00; Status DC Naloxone HCl (Narcan) 0.4 mg PRN Q2MIN PRN IV SEE INSTRUCTIONS; Start 10/07/20 at 17:30 Sodium Chloride 1,000 ml @ 25 mls/hr Q24H IV Last administered on 10/09/20at 00:17; Start 10/07/20 at 17:30 Hydromorphone HCl 30 ml @ 0 mls/hr CONT PRN PRN IV PER PROTOCOL Last administered on 10/12/20at 17:56; Start 10/07/20 at 17:30 Pantoprazole Sodium 80 mg/ Sodium Chloride 100 ml @ 10 mls/hr Q10H IV Last administered on 10/10/20at 16:19; Start 10/07/20 at 18:00; Stop 10/10/20 at 17:59; Status DC Piperacillin Sod/ Tazobactam Sod 3.375 gm/Sodium Chloride 50 ml @ 100 mls/hr Q6HRS IV Last administered on 10/13/20at 06:12; Start 10/07/20 at 18:00 Multivitamins 10 ml/Thiamine HCl 100 mg/Folic Acid 1 mg/Sodium Chloride 1,011.2 ml @ 1,000.088 mls/hr 1X ONCE IV Last administered on 10/07/20at 21:33; Start 10/07/20 at 20:00; Stop 10/07/20 at 21:00; Status DC Lorazepam (Ativan Inj) 2 mg PRN Q1HR PRN IV For CIWA 8-14; Start 10/07/20 at 20:00 Lorazepam (Ativan Inj) 4 mg PRN Q1HR PRN IV For CIWA 15 or greater; Start 10/07/20 at 20:00 Lorazepam (Ativan Inj) 1 mg 1X ONCE IVP Last administered on 10/07/20at 21:33; Start 10/07/20 at 20:00; Stop 10/07/20 at 20:03; Status DC Phenol (Chloraseptic) 1 spray PRN Q2HR PRN PO SORE THROAT; Start 10/07/20 at 20:00 Nicotine (Nicoderm Cq 14mg) 1 patch PRN DAILY PRN TD SMOKING CESSATION Last administered on 10/08/20at 08:49; Start 10/07/20 at 20:00; Stop 10/09/20 at 09:38; Status DC Influenza Virus Vaccine Quadrival (Fluzone Quad Syringe) 0.5 ml ONCE ONCE VAX IM ; Start 10/09/20 at 09:00; Stop 10/09/20 at 09:01; Status DC Sodium Chloride 1,000 ml @ 1,000 mls/hr 1X ONCE IV Last administered on 10/08/20at 10:08; Start 10/08/20 at 08:45; Stop 10/08/20 at 09:44; Status DC Saliva Substitute (Biotene Moisturizing Mouth) 2 spray PRN Q15MIN PRN PO DRY MOUTH Last administered on 10/08/20at 10:08; Start 10/08/20 at 08:45 Amino Acids/ Glycerin/ Electrolytes 1,000 ml @ 80 mls/hr [id number] IV Last administered on 10/13/20at 08:20; Start 10/09/20 at 09:45 Sodium Chloride 1,000 ml @ 1,000 mls/hr 1X ONCE IV Last administered on 10/09/20at 10:10; Start 10/09/20 at 09:45; Stop 10/09/20 at 10:44; Status DC Nicotine (Nicoderm Cq 14mg) 1 patch DAILY TD Last administered on 10/13/20at 08:20; Start 10/09/20 at 09:45 Pantoprazole Sodium (PROTONIX VIAL for IV PUSH) 40 mg BIDAC IVP Last adminis tered on 10/13/20at 08:19; Start 10/11/20 at 12:30 Guaifenesin (Mucinex) 600 mg PRN BID PRN PO CONGESTION; Start 10/12/20 at 13:15 Vitals/I & O Vital Sign - Last 24 Hours 10/12/20 10/12/20 10/12/20 10/12/20 11:00 15:00 17:56 18:26 Temp 98.0 97.9 98.0 97.9 Pulse 84 87 Resp 18 18 B/P (MAP) 120/82 (95) 113/85 (94) Pulse Ox 100 95 95 95 O2 Delivery Room Air Room Air Room Air Room Air O2 Flow Rate 2.0 10/12/20 10/12/20 10/12/20 10/13/20 19:00 20:00 23:00 03:00 Temp 99.1 98.8 97.7 99.1 98.8 97.7 Pulse 98 92 90 Resp 20 20 20 B/P (MAP) 117/88 (98) 110/78 (89) 140/75 (96) Pulse Ox 94 94 95 O2 Delivery Room Air Room Air Room Air Room Air 10/13/20 07:00 Temp 98.0 98.0 Pulse 112 Resp 18 B/P (MAP) 142/80 (100) Pulse Ox 97 O2 Delivery Room Air Intake and Output 10/12/20 10/12/20 10/13/20 15:00 23:00 07:00 Intake Total 1010 ml 1590.00 ml 500 ml Output Total 60 ml 900 ml Balance 1010 ml 1530.00 ml -400 ml Justifications for Admission Other Justification Nutrition Consultation Dietary Evaluation: Recommendations by RD: Dietary education by RD, Increase Calorie Intake, Protein supplementation, PPN/TPN Comments: REC advance diet as able per GI/MD, goal diet regular w/Ensure or Ensure clear supplements Continue w/PPN until advanced to regular diet and pt is eating/tolerating >50% meals Expected Outcomes/Goals: diet advancement Malnutrition Findings: Food and Nutrition Intake (Sev: <50% est energy req 5days Weight Status: Appropriate KHOA HAMPTON MD Oct 13, 2020 10:07
[2020-10-13 11:00] VITALS: BP 110/80
[2020-10-13 15:00] VITALS: BP 108/74
[2020-10-13] MEDS: HYDROcodone/APAP 7.5/325MG 1 TAB TABLET PO PRN ×2 (16:53→23:32)
[2020-10-13] MEDS: PANTOPRAZOLE 40 MG TABLET.DR. PO SCH (16:53)
[2020-10-13 19:00] VITALS: BP 107/74
[2020-10-13] MEDS: LACTOBACILLUS RHAMNOSUS GG 1 CAPSULE. PO SCH (19:52)
[2020-10-13 23:00] VITALS: BP 106/89
[2020-10-14 03:00] VITALS: BP 104/78
[2020-10-14] MEDS: HYDROcodone/APAP 7.5/325MG 1 TAB TABLET PO PRN (05:46)
[2020-10-14] MEDS: PANTOPRAZOLE 40 MG TABLET.DR. PO SCH (05:46)
[2020-10-14] MEDS: PIPERACILLIN/TAZOBACTAM 3.375 GM in IV NORMAL SALINE 50ML 50 ML IV SCH ×2 (05:46→12:21)
[2020-10-14 07:00] VITALS: BP 115/68
[2020-10-14 07:41] LABS: BASO % 1 % (0-3); EOS # 0.4 x10^3/uL (0.0-0.7); EOS % 7 % (0-3); HEMATOCRIT 32.1 % (39.0-53.0); HEMOGLOBIN 10.9 g/dL (13.0-17.5); LYMPH % 17 % (24-48); MEAN CORPUSCULAR HEMOGLOBIN 32 pg (25-35); MEAN CORPUSCULAR HGB CONC 34 g/dL (31-37); MEAN CORPUSCULAR VOLUME 94 fL (79-100); MONO # 0.5 x10^3/uL (0.0-1.1); MONO % 9 % (0-9); NEUT # 3.8 x10^3/uL (1.8-7.7); NEUT % 66 % (31-73); PLATELET COUNT 497 x10^3/uL (140-400); RED BLOOD COUNT 3.43 x10^6/uL (4.30-5.70); RED CELL DISTRIBUTION WIDTH 13.5 % (11.5-14.5); WHITE BLOOD COUNT 5.8 x10^3/uL (4.0-11.0)
[2020-10-14 08:02] LABS: CALCIUM 8.3 mg/dL (8.5-10.1); CREATININE 0.9 mg/dL (0.7-1.3); GFR 89.3; POTASSIUM 3.8 mmol/L (3.5-5.1)
--- NOTE | 2020-10-14 09:33 | NUR ---
SW following. Discussed with RN, pt from home, room air, regular diet, COVID-19 negative. No therapy needs. RN advised no SW needs at this time, anticipates possible discharge home today with self care. SW will continue to follow.
[2020-10-14] MEDS ORDERED: HYDR-2765 PO (09:50)
[2020-10-14] MEDS ORDERED: PANT40TA77 PO (09:50)
[2020-10-14] MEDS: LACTOBACILLUS RHAMNOSUS GG 1 CAPSULE. PO SCH (09:56)
[2020-10-14] MEDS: NICOTINE 14MG PATCH. TD SCH (09:57)
--- NOTE | 2020-10-14 09:58 | PDOC ---
ISHAN GEORGE TRUCK SPOTTER 10/14/20 0958: SURGICAL PROGRESS NOTE DATE: 10/14/20 TIME: 09:46 Subjective doing well no current complaints no n/v Vital Signs Vital Signs Date Time Temp Pulse Resp B/P (MAP) Pulse Ox O2 Delivery O2 Flow Rate FiO2 10/14/20 07:11 12 Room Air 10/14/20 07:00 97.5 72 115/68 (84) 97 97.5 I&O Intake and Output 10/14/20 07:00 Intake Total 1600 ml Output Total 15 ml Balance 1585 ml Intake Oral 1400 ml IV Total 200 ml Drainage Total 15 ml # Voids 2 # Bowel Movements 1 General: Alert, Oriented X3, Cooperative Abdomen: Soft, Other (ND, incision c/d/i, noelle serous) Labs Laboratory Tests Test 10/14/20 06:50 White Blood Count 5.8 x10^3/uL (4.0-11.0) Red Blood Count 3.43 x10^6/uL (4.30-5.70) Hemoglobin 10.9 g/dL (13.0-17.5) Hematocrit 32.1 % (39.0-53.0) Mean Corpuscular Volume 94 fL (79-100) Mean Corpuscular Hemoglobin 32 pg (25-35) Mean Corpuscular Hemoglobin Concent 34 g/dL (31-37) Red Cell Distribution Width 13.5 % (11.5-14.5) Platelet Count 497 x10^3/uL (140-400) Neutrophils (%) (Auto) 66 % (31-73) Lymphocytes (%) (Auto) 17 % (24-48) Monocytes (%) (Auto) 9 % (0-9) Eosinophils (%) (Auto) 7 % (0-3) Basophils (%) (Auto) 1 % (0-3) Neutrophils # (Auto) 3.8 x10^3/uL (1.8-7.7) Lymphocytes # (Auto) 1.0 x10^3/uL (1.0-4.8) Monocytes # (Auto) 0.5 x10^3/uL (0.0-1.1) Eosinophils # (Auto) 0.4 x10^3/uL (0.0-0.7) Basophils # (Auto) 0.0 x10^3/uL (0.0-0.2) Sodium Level 138 mmol/L (136-145) Potassium Level 3.8 mmol/L (3.5-5.1) Chloride Level 105 mmol/L (98-107) Carbon Dioxide Level 24 mmol/L (21-32) Anion Gap 9 (6-14) Blood Urea Nitrogen 7 mg/dL (8-26) Creatinine 0.9 mg/dL (0.7-1.3) Estimated GFR (Cockcroft-Gault) 89.3 Glucose Level 88 mg/dL (70-99) Calcium Level 8.3 mg/dL (8.5-10.1) Laboratory Tests Test 10/14/20 06:50 White Blood Count 5.8 x10^3/uL (4.0-11.0) Red Blood Count 3.43 x10^6/uL (4.30-5.70) Hemoglobin 10.9 g/dL (13.0-17.5) Hematocrit 32.1 % (39.0-53.0) Mean Corpuscular Volume 94 fL (79-100) Mean Corpuscular Hemoglobin 32 pg (25-35) Mean Corpuscular Hemoglobin Concent 34 g/dL (31-37) Red Cell Distribution Width 13.5 % (11.5-14.5) Platelet Count 497 x10^3/uL (140-400) Neutrophils (%) (Auto) 66 % (31-73) Lymphocytes (%) (Auto) 17 % (24-48) Monocytes (%) (Auto) 9 % (0-9) Eosinophils (%) (Auto) 7 % (0-3) Basophils (%) (Auto) 1 % (0-3) Neutrophils # (Auto) 3.8 x10^3/uL (1.8-7.7) Lymphocytes # (Auto) 1.0 x10^3/uL (1.0-4.8) Monocytes # (Auto) 0.5 x10^3/uL (0.0-1.1) Eosinophils # (Auto) 0.4 x10^3/uL (0.0-0.7) Basophils # (Auto) 0.0 x10^3/uL (0.0-0.2) Sodium Level 138 mmol/L (136-145) Potassium Level 3.8 mmol/L (3.5-5.1) Chloride Level 105 mmol/L (98-107) Carbon Dioxide Level 24 mmol/L (21-32) Anion Gap 9 (6-14) Blood Urea Nitrogen 7 mg/dL (8-26) Creatinine 0.9 mg/dL (0.7-1.3) Estimated GFR (Cockcroft-Gault) 89.3 Glucose Level 88 mg/dL (70-99) Calcium Level 8.3 mg/dL (8.5-10.1) Problem List Problems Medical Problems: (1) Perforated ulcer of intestine Status: Acute Assessment/Plan dc drains prior to discharge elevated h pylori IGG antibodies--will ask GI to eval and manage treatment needs DC on PPI FU 2 weeks Justicifation of Admission Dx: Justifications for Admission: Justification of Admission Dx: Yes KHOA HAMPTON MD 10/14/20 1003: SURGICAL PROGRESS NOTE Assessment/Plan Agree with above ISHAN GEORGE APRN Oct 14, 2020 09:58 KHOA HAMPTON MD Oct 14, 2020 10:03
[2020-10-14 11:00] VITALS: BP 101/63
--- NOTE | 2020-10-14 11:08 | PDOC2 ---
LILLY PTEIT 10/14/20 1108: GI CONSULT Date of Service: DATE: 10/14/20 TIME: 10:52 Reason For Consult: per ulcer, elevated H. pylori IgG HPI: HPI: 50 y/o male evaluated in ER on 10/07 w/ worsening upper abdominal pain radiating to right shoulder and recent melena. Imaging concerning for perforated duodenal ulcer; he underwent exploratory laparoscopy and open repair of perforated duodenal ulcer w/ omental patch w/ Dr. Moreno on 10/07. He is improved after surgery - tolerating diet and stooling. Possible DC today. We are asked to see him re: elevated H. pylori IgG Ab. H/o GERD - took Prilosec in the [place]. Gives history of "gastritis" - says he vomited blood and was seen in an ER once and they gave him Prilosec. 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 No dysphagia. No chronic n/v, abd pain, diarrhea, or constipation. No hematochezia or recurrent melena. No previous EGD or colonoscopy. No GB, liver, or pancreas history. 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 His PCP is through [facility]. PMH: PMH: GERD, Whitaker's palsy, back pain laminectomy FH: Family History: No pertinent hx (denies GI cancers) Social History: Smoke: <1 pack per day ALCOHOL: heavy (6 pack + 1/2 pint on days he works, 12 pack + 1 pint on days he doesn't) Drugs: None ROS: GEN: Denies fevers, chills, sweats HEENT: Denies blurred vision, sore throat CV: Denies chest pain RESP: Denies shortness of air, cough GI: Per HPI : Denies hematuria, dysuria ENDO: Denies weight changes NEURO: Denies confusion, dizziness MSK: +back pain SKIN: Denies jaundice, pruritus Vitals: Vitals: Vital Signs Date Time Temp Pulse Resp B/P (MAP) Pulse Ox O2 Delivery O2 Flow Rate FiO2 10/14/20 07:11 12 Room Air 10/14/20 07:00 97.5 72 115/68 (84) 97 97.5 Labs: Labs: Laboratory Tests Test 10/14/20 06:50 White Blood Count 5.8 x10^3/uL (4.0-11.0) Red Blood Count 3.43 x10^6/uL (4.30-5.70) Hemoglobin 10.9 g/dL (13.0-17.5) Hematocrit 32.1 % (39.0-53.0) Mean Corpuscular Volume 94 fL (79-100) Mean Corpuscular Hemoglobin 32 pg (25-35) Mean Corpuscular Hemoglobin Concent 34 g/dL (31-37) Red Cell Distribution Width 13.5 % (11.5-14.5) Platelet Count 497 x10^3/uL (140-400) Neutrophils (%) (Auto) 66 % (31-73) Lymphocytes (%) (Auto) 17 % (24-48) Monocytes (%) (Auto) 9 % (0-9) Eosinophils (%) (Auto) 7 % (0-3) Basophils (%) (Auto) 1 % (0-3) Neutrophils # (Auto) 3.8 x10^3/uL (1.8-7.7) Lymphocytes # (Auto) 1.0 x10^3/uL (1.0-4.8) Monocytes # (Auto) 0.5 x10^3/uL (0.0-1.1) Eosinophils # (Auto) 0.4 x10^3/uL (0.0-0.7) Basophils # (Auto) 0.0 x10^3/uL (0.0-0.2) Sodium Level 138 mmol/L (136-145) Potassium Level 3.8 mmol/L (3.5-5.1) Chloride Level 105 mmol/L (98-107) Carbon Dioxide Level 24 mmol/L (21-32) Anion Gap 9 (6-14) Blood Urea Nitrogen 7 mg/dL (8-26) Creatinine 0.9 mg/dL (0.7-1.3) Estimated GFR (Cockcroft-Gault) 89.3 Glucose Level 88 mg/dL (70-99) Calcium Level 8.3 mg/dL (8.5-10.1) Allergies: Coded Allergies: No Known Drug Allergies (Unverified , 10/07/20) Medications: Current Medications Medications (Trade) Dose Ordered Sig/Natalee Route PRN Reason Start Time Stop Time Status Last Admin Dose Admin Acetaminophen/ Hydrocodone Bitart (Lortab 7.5/325) 1 tab PRN Q6HRS PRN PO SEVERE PAIN 7-10 10/13/20 12:15 10/14/20 05:46 Lactobacillus Rhamnosus (Culturelle) 1 cap BID PO 10/13/20 21:00 10/14/20 09:56 Pantoprazole Sodium (Protonix) 40 mg BIDAC PO 10/13/20 16:30 10/14/20 05:46 Imaging: Imaging: CT A/P 10/07 FINDINGS: No previous imaging studies are available for comparison. Images through the lung bases demonstrate minimal dependent subsegmental atelectasis bilaterally. A 8mm calcified granuloma is seen involving the right middle lobe. The liver, spleen, pancreas, adrenal glands and kidneys are within normal limits. The abdominal aorta is mildly ectatic but appears to taper normally. The gallbladder is well-distended. The cecum extends into the pelvis. The appendix is within normal limits. There is no evidence of bowel obstruction. A small amount of free fluid is seen within the right abdomen. Small collections of free air are seen in the region of scot hepatis and anterior to the liver. Fluid and small extraluminal collections of air are seen adjacent to the lateral superior aspect of the first portion of the duodenum. These findings are concerning for a perforated duodenal ulcer. Images through the pelvis demonstrate the urinary bladder to be contracted. A moderate amount of free fluid is seen within the pelvis. Very mild S-shaped curvature of the thoracolumbar spine is seen. Degenerative changes are seen involving lower thoracic and mid and lower lumbar spine along with both hips. IMPRESSION: Findings are seen concerning for a perforated duodenal ulcer as outlined above. PE: GEN: NAD - sitting in chair HEENT: Atraumatic, PERRL LUNGS: CTAB HEART: RRR ABD: NABS, S/ND/NT EXTREMITY: No edema SKIN: No rashes, no jaundice NEURO/PSYCH: A & O 3 A/P: A/P: S/p perf DU repair 10/07/20 Normocytic anemia, elevated H. pylori IgG Ab H/o GERD CRC screen - none Chronic back pain, NSAID use Alcohol overuse -- Will review recommendation for lab finding of elevated H. pylori IgG Ab w/ Dr. Cornell. Note plans for DC today. Continue PPI. Follow-up w/ GI at [facility] (where he usually gets his care) for EGD and colonoscopy. Avoid NSAIDs moving forward. Counseled re: less alcohol consumption and tobacco cessation - he is motivated to do both. KHOA CORNELL MD 10/14/20 1730: LILLY PETIT Oct 14, 2020 11:08 KHOA CORNELL MD Oct 14, 2020 17:30
--- NOTE | 2020-10-14 11:45 | PDOC ---
[employer] PROGRESS NOTE Date of Service DOS: DATE: 10/14/20 TIME: 11:41 Chief Complaint Chief Complaint acute severe abdominal pain perforated gastric ulcer, to the OR on 10/07, Dr. Moreno Severe malnutrition; PPN, advance diet as tolerated tobacco use disoder, patch Alcohol abuse, ativan iv x1, CIWA, banana bag given chroniclumbar back pain, s/p laminectomy, mult MS joint pain complaints History of Present Illness History of Present Illness 10/11/2020 No acute events overnight. NG tube removed today. Patient tolerating clear liquid diet and will advance as tolerated. Ambulating and pain is well controlled. Adequate cough. Patient's chart, labs, images were reviewed and discussed with RN 10/12/2020 No acute vents overnight. Afebrile. Had small liquid bowel movement today. Complains of some chest congestion. Encouraged ambulation. Continue PPN and clear liquid diet, advance as tolerated. 10/13/2020 Patient seen and examined. Afebrile, no acute events. D/C PPN. Patient on 100% of his regular diet. Plan for discharge tomorrow. 10/14 Patient seen and examined Discussed with RN Discussed with case management Patient is comfortable Vitals/I&O Vitals/I&O: Vital Signs Date Time Temp Pulse Resp B/P (MAP) Pulse Ox O2 Delivery O2 Flow Rate FiO2 10/14/20 07:11 12 Room Air 10/14/20 07:00 97.5 72 115/68 (84) 97 97.5 I & O 10/13/20 10/13/20 10/14/20 15:00 23:00 07:00 Intake Total 300 ml 800 ml 500 ml Output Total 15 ml Balance 300 ml 785 ml 500 ml Physical Exam General: Alert, Oriented X3, Cooperative Heart: Regular rate, No murmurs Lungs: Clear, Wheezing Abdomen: Soft, Other (CDI ventral dressing, ELADIA drain with serous drainage) Extremities: No clubbing, No edema, Normal pulses Skin: No breakdown Labs Labs: Laboratory Tests Test 10/14/20 06:50 White Blood Count 5.8 x10^3/uL (4.0-11.0) Red Blood Count 3.43 x10^6/uL (4.30-5.70) Hemoglobin 10.9 g/dL (13.0-17.5) Hematocrit 32.1 % (39.0-53.0) Mean Corpuscular Volume 94 fL (79-100) Mean Corpuscular Hemoglobin 32 pg (25-35) Mean Corpuscular Hemoglobin Concent 34 g/dL (31-37) Red Cell Distribution Width 13.5 % (11.5-14.5) Platelet Count 497 x10^3/uL (140-400) Neutrophils (%) (Auto) 66 % (31-73) Lymphocytes (%) (Auto) 17 % (24-48) Monocytes (%) (Auto) 9 % (0-9) Eosinophils (%) (Auto) 7 % (0-3) Basophils (%) (Auto) 1 % (0-3) Neutrophils # (Auto) 3.8 x10^3/uL (1.8-7.7) Lymphocytes # (Auto) 1.0 x10^3/uL (1.0-4.8) Monocytes # (Auto) 0.5 x10^3/uL (0.0-1.1) Eosinophils # (Auto) 0.4 x10^3/uL (0.0-0.7) Basophils # (Auto) 0.0 x10^3/uL (0.0-0.2) Sodium Level 138 mmol/L (136-145) Potassium Level 3.8 mmol/L (3.5-5.1) Chloride Level 105 mmol/L (98-107) Carbon Dioxide Level 24 mmol/L (21-32) Anion Gap 9 (6-14) Blood Urea Nitrogen 7 mg/dL (8-26) Creatinine 0.9 mg/dL (0.7-1.3) Estimated GFR (Cockcroft-Gault) 89.3 Glucose Level 88 mg/dL (70-99) Calcium Level 8.3 mg/dL (8.5-10.1) Review of Systems Review of Systems: Denies itching or rashes Denies headache, changes in vision, or numbness. Assessment and Plan Assessmemt and Plan Problems Medical Problems: (1) Perforated ulcer of intestine Status: Acute Assessment: acute severe abdominal pain perforated gastric ulcer, to the OR on 10/07, Dr. Moreno Severe malnutrition; PPN, advance diet as tolerated tobacco use disoder, patch Alcohol abuse, ativan iv x1, CIWA, banana bag given chroniclumbar back pain, s/p laminectomy, mult MS joint pain complaints Plan: Discharge if ok with surgery Comment Review of Relevant I have reviewed the following items milla (where applicable) has been applied. Medications: Current Medications Medications (Trade) Dose Ordered Sig/Natalee Route PRN Reason Start Time Stop Time Status Last Admin Dose Admin Acetaminophen/ Hydrocodone Bitart (Lortab 7.5/325) 1 tab PRN Q6HRS PRN PO SEVERE PAIN 7-10 10/13/20 12:15 10/14/20 05:46 Lactobacillus Rhamnosus (Culturelle) 1 cap BID PO 10/13/20 21:00 10/14/20 09:56 Pantoprazole Sodium (Protonix) 40 mg BIDAC PO 10/13/20 16:30 10/14/20 05:46 Justifications for Admission Other Justification DAVID BROWN III DO Oct 14, 2020 11:45
--- NOTE | 2020-10-14 11:59 | DS ---
DATE OF DISCHARGE: 10/14/2020 ADMISSION DIAGNOSIS: Gastrointestinal bleed. DISCHARGE DIAGNOSES: Postoperative day #7, exploratory laparotomy with open repair of perforated duodenal ulcer and omental patch. CONSULTS: Dr. Moreno. HOSPITAL COURSE: The patient is a pleasant middle-aged male, who presented with weakness and abdominal pain, was noted to have anemia. Basically, we discovered the patient had a perforated ulcer. We consulted General Surgery. The above procedure was performed. He is postop day #7. Today, he is doing well. I saw him and examined him. DISCHARGE PHYSICAL EXAMINATION: HEART: His heart tones are normal. LUNGS: Clear. ABDOMEN: His abdomen has clean, dry and intact dressings. Hemoglobin is 10.9. We plan to discharge. DISPOSITION: Home. ACTIVITY: As tolerated. DIET: Low sodium. MEDICATIONS: Please see the MRAD. TOTAL TIME: 34 minutes. BLADIMIRL Deepika BROWN DO DR: TEJA/teena JOB#: [id number] / [id number]
--- NOTE | 2020-10-14 12:44 | NUR ---
Removed ELADIA and [place] drain per ordered. Patient tolerated the procedure well.
--- NOTE | 2020-10-14 14:24 | NUR ---
Patient discharged home with self care today accompany by the spouse and aid. Patient is stable and IV removed. Prescriptions and discharge paperwork given to patient. Patient verbalized understanding of followup and discharge instruction.
== END 2020-10-14 14:20 | disposition home or self-care (01) | DRG 326 ==
LOC: ER 10:43 → 4 NORTH 13:05
PROVIDERS: ADMIT Internal Medicine; ATTEND Internal Medicine
PROC: 0DJ04ZZ Inspection of Upper Intestinal Tract, Percutaneous Endoscopic Approach (ICD-10-PCS; 2020-10-07)
PROC: 0DB90ZZ Excision of Duodenum, Open Approach (ICD-10-PCS; principal; 2020-10-07 14:30)
DX: K26.6 Chronic or unspecified duodenal ulcer with both hemorrhage and perforation (principal); E43 Unspecified severe protein-calorie malnutrition; K25.6 Chronic or unspecified gastric ulcer with both hemorrhage and perforation; D64.9 Anemia, unspecified; G51.0 Bell's palsy; G89.29 Other chronic pain; F17.210 Nicotine dependence, cigarettes, uncomplicated; K21.9 Gastro-esophageal reflux disease without esophagitis; F10.10 Alcohol abuse, uncomplicated; Z68.26 Body mass index [BMI] 26.0-26.9, adult; Z20.828 Contact with and (suspected) exposure to other viral communicable diseases
CPT/HCPCS: 36415; 74177; 80048; 80053; 81001; 83690; 84484; 85007; 85025; 85610; 86677; 87426; 96361; 96374; 96375; C9113; J0330; J1100; J1170; J2060; J2270; J2370; J2405; J2543; J2704; J2710; J3010; J3411; J3490; J7030; J7120; Q9967; U0003; 97116-GP; 97530-GO; 97530-GP; 99285-25; G0378